=== PATIENT | female | born 1980 | race Asian ===

== ENCOUNTER 2016-02-22 14:06 | Inpatient (IN) | payer OTHER ==
[2016-02-22] MEDS ORDERED: NS 0.9% 1000 ML* 2,000 ML IV ONE (15:11)
[2016-02-22] MEDS ORDERED: Propranolol TAB* 60 MG PO ONE (15:20)
[2016-02-22] MEDS ORDERED: Propylthiouracil TAB* 50 MG PO ONE (15:24)
[2016-02-22 15:26] LABS: Hematocrit 44 % (35-47); Hemoglobin 14.2 g/dl (12.0-16.0); Mean Corpuscular HGB Conc 32 g/dl (31-36); Mean Corpuscular Hemoglobin 26 pg (27-31); Mean Corpuscular Volume 81 fL (80-97); Mean Platelet Volume 8 um3 (7.4-10.4); Red Blood Count 5.43 10^6/ul (4.0-5.4); Red Cell Distribution Width 13 % (10.5-15); White Blood Count 5.4 10^3/ul (3.5-10.8)
[2016-02-22] MEDS ORDERED: Hydrocortisone INJ* 100 MG VIAL IV ONE (15:26)
--- NOTE | 2016-02-22 15:32 | RAD ---
HISTORY: Pneumonia COMPARISONS: August 16, 2010 VIEWS:1: Single frontal portable view of the chest at 3:20 PM FINDINGS: LINES AND TUBES: None. CARDIOMEDIASTINAL SILHOUETTE: The cardiomediastinal silhouette is normal for portable technique. PLEURA: The costophrenic angles are sharp. No pleural abnormalities are noted. LUNG PARENCHYMA: There are symmetric rounded densities overlying the lower lungs bilaterally suggestive of nipple shadows ABDOMEN: The upper abdomen is clear. There is no subphrenic gas. BONES AND SOFT TISSUES: No bone or soft tissue abnormalities are noted. IMPRESSION: 1. SYMMETRIC ROUNDED DENSITIES OVERLYING THE LOWER LUNGS BILATERALLY SUGGESTIVE OF NIPPLE SHADOWS. IF THERE IS CLINICAL CONCERN FOR PULMONARY PARENCHYMAL NODULARITY, FURTHER EVALUATION CAN BE PERFORMED WITH REPEAT CHEST FILM WITH NIPPLE MARKERS. 2. OTHERWISE NO ACTIVE CARDIOPULMONARY DISEASE
[2016-02-22 15:39] LABS: Albumin 3.9 g/dL (3.2-5.2); BUN/Creatinine Ratio 30.8 (8-20); C Reactive Protein 2.17 mg/L (< 5.00); Calcium 9.8 mg/dL (8.6-10.3); EGFR African American 239.2 (>60); Globulin 3.4 g/dL (2-4); Potassium 3.9 mmol/L (3.5-5.0); Total Bilirubin 0.6 mg/dL (0.2-1.0); Total Protein 7.3 g/dL (6.4-8.9)
[2016-02-22 15:55] LABS: TSH (Thyroid Stimulating Horm) 0.06 mcIU/mL (0.34-5.60)
[2016-02-22 16:00] LABS: Free T3 21.2 pg/mL (2.5-3.9)
[2016-02-22 16:02] LABS: Free T4 5.59 ng/dL (0.61-1.12)
[2016-02-22 16:41] LABS: Urine Bilirubin Negative (Negative); Urine Glucose Negative (Negative); Urine Nitrite Negative (Negative)
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
--- NOTE | 2016-02-22 17:47 | RAD ---
Indication: Altered mental status. Confusion. Tachycardia. Comparison: None. Technique: Noncontrast CT vertex of skull through foramen magnum. Report: Brachycephaly morphology of the calvarium. Negative for fracture or suspicious osseous lesion of the calvarium or skull base. Negative for scalp hematoma. The sulci, ventricles, and basal cisterns are normal for age. Variant persistent cavum septum pellucidum and vergae. Suarez matter white matter differentiation is preserved without evidence for edema. No intra or extra axial hemorrhage, mass, or fluid collection detected. Unremarkable orbital contents. The visualized paranasal sinuses and mastoid air spaces are clear. IMPRESSION: No acute intracranial process evident.
[2016-02-22] MEDS ORDERED: Acetaminophen TAB* 325 MG PO PRN (18:23)
[2016-02-22] MEDS ORDERED: Temazepam CAP* 15 MG PO PRN (18:23)
[2016-02-22] MEDS ORDERED: NS 0.9% 1000 ML* 1,000 ML IV ONE (18:23)
[2016-02-22] MEDS: Iodine Strong (LUGOL'S)* 14 ML BTL PO SCH (22:59)
[2016-02-22] MEDS: Hydrocortisone TAB* 10 MG PO SCH (23:02)
[2016-02-22] MEDS: Propylthiouracil TAB* 50 MG PO SCH (23:04)
[2016-02-22] MEDS: Propranolol TAB* 40 MG PO SCH (23:56)
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
[2016-02-23 04:13] LABS: Benzodiazepine Urine Screen None Detected (None Detect)
[2016-02-23 05:07] LABS: Hematocrit 35 % (35-47); Hemoglobin 11.6 g/dl (12.0-16.0); Mean Corpuscular HGB Conc 33 g/dl (31-36); Mean Corpuscular Hemoglobin 27 pg (27-31); Mean Corpuscular Volume 82 fL (80-97); Mean Platelet Volume 8 um3 (7.4-10.4); Red Blood Count 4.33 10^6/ul (4.0-5.4); Red Cell Distribution Width 13 % (10.5-15); White Blood Count 5.1 10^3/ul (3.5-10.8)
[2016-02-23 05:28] LABS: BUN/Creatinine Ratio 27.5 (8-20); Blood Urea Nitrogen 11 mg/dL (6-24); CO2 Carbon Dioxide 19 mmol/L (22-32); Calcium 9.3 mg/dL (8.6-10.3); Chloride 108 mmol/L (101-111); EGFR African American 232.3 (>60); EGFR Non-African American 180.6 (>60); Glucose 107 mg/dL (70-100); Sodium 134 mmol/L (133-145)
[2016-02-23] MEDS: Propranolol TAB* 40 MG PO SCH ×3 (05:51→18:16)
[2016-02-23] MEDS: Omeprazole CAP* 20 MG PO SCH (05:52)
[2016-02-23] MEDS: Iodine Strong (LUGOL'S)* 14 ML BTL PO SCH ×3 (08:12→18:15)
[2016-02-23] MEDS: Hydrocortisone TAB* 10 MG PO SCH ×2 (10:02→14:54)
[2016-02-23] MEDS: Propylthiouracil TAB* 50 MG PO SCH ×3 (10:03→18:16)
[2016-02-23] MEDS ORDERED: LORazepam INJ* 2 MG/ML 1 ML VIAL IV PUSH PRN (14:42)
[2016-02-23] MEDS: Cholestyramine Resin* 4 GM POWDER PO SCH (14:53)
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
[2016-02-23] MEDS ORDERED: Haloperidol INJ IV/IM* 5 MG/ML AMP IV ONE (22:48)
[2016-02-23] MEDS ORDERED: LORazepam INJ* 2 MG/ML 1 ML VIAL IV ONE (22:50)
[2016-02-23] MEDS ORDERED: Haloperidol INJ IV/IM* 5 MG/ML AMP ONE (22:55)
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
[2016-02-24] MEDS: LORazepam INJ* 2 MG/ML 1 ML VIAL IV PUSH SCH ×3 (00:04→11:53)
[2016-02-24] MEDS: Hydrocortisone TAB* 10 MG PO SCH ×2 (00:04→11:53)
[2016-02-24] MEDS: Cholestyramine Resin* 4 GM POWDER PO SCH ×3 (00:04→11:52)
[2016-02-24] MEDS: Enoxaparin(*) 40 MG/0.4 ML SYR SUBCUT SCH ×2 (00:04→18:23)
[2016-02-24] MEDS: Propylthiouracil TAB* 50 MG PO SCH ×6 (00:04→23:47)
[2016-02-24] MEDS: Propranolol IV* 1 MG/ML 1 ML VIAL IV PUSH SCH ×4 (00:05→11:53)
[2016-02-24] MEDS: Omeprazole CAP* 20 MG PO SCH (06:01)
[2016-02-24] MEDS ORDERED: LORazepam INJ* 2 MG/ML 1 ML VIAL IV PUSH PRN (11:54)
[2016-02-24] MEDS ORDERED: Propranolol LA CAP* 80 MG PO ONE (12:00)
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
--- NOTE | 2016-02-24 16:35 | PN ---
Subjective Date of Service: 02/24/16 Interval History: Events from overnight reviewed. Patient refused all medications starting in the evening. Based on her previous inability to detail circumstances pertaining to her hospital stay, her diagnosis, nor risk and benefits of receiving or refusing medications a decision was made to medicate with ativan and give IV hydrocortisone and IV propranolol overnight in setting of renewed tachycardia and new pyrexia. Plan was communicated directly to overnight nurse and overnight hospitalist. Patient continued to refuse all medications and none were administered. This AM patient was noted to be increasingly tachycardic and febrile with continued manic symptoms. A meeting was had first with patient and her concerning diagnosis, treatment plan, and risks inherent to thyroid storm as well as risks associated with refusal of treatment (as outlined in Dr. Thomas's note from today). A follow up conversation was then conducted with myself, Dr. Mcnally, the patient, and her as well as myself, Dr. Mcnally, and the patient's /HCP in the absence of the patient (with her permission). At the conclusion of conversion with patient and Dr. Mcnally the patient has agreed to take propranolol and PTU. In follow up the patient's HCP indicates that when patient was at her baseline she would be unlikely to refuse the treatment being offered at this time. IF PATIENT DECLINES MEDICATIONS THE HCP/, ACTING ON HER BEHALF, WOULD LIKE TO TREAT AGAINST HER OBJECTION INCLUDING THE USE OF SEDATIVES/ANXIOLYTICS SHOULD THEY BE NECESSARY. THE PATIENT DOES NOT HAVE CAPACITY TO REFUSE MEDICATIONS NOR LEAVE HOSPITAL AGAINST MEDICAL ADVISE OUTLINED HERE AND IN PSYCHIATRY'S NOTE FROM TODAY Objective Active Medications: Acetaminophen (Tylenol Tab*) 650 mg PO Q4H PRN PRN Reason: FEVER/PAIN Last Admin: 02/22/16 23:26 Dose: 650 mg Enoxaparin Sodium (Lovenox(*)) 40 mg SUBCUT Q24H NIKITA Last Admin: 02/24/16 00:04 Dose: Not Given Lorazepam (Ativan Inj*) 1 mg IV PUSH Q6H PRN PRN Reason: ANXIETY Propranolol HCl (Inderal La [place]*) 80 mg PO BID NIKITA Propylthiouracil (Ptu Tab*) 200 mg PO QID NIKITA Last Admin: 02/24/16 14:58 Dose: 200 mg Vital Signs 02/23/16 02/23/16 02/24/16 19:45 20:00 07:43 Temperature 99.8 F 98.5 F Pulse Rate 110 116 Respiratory 16 16 16 Rate Blood Pressure 112/68 137/78 (mmHg) O2 Sat by Pulse 99 98 Oximetry 02/24/16 02/24/16 02/24/16 07:55 13:10 15:21 Temperature 98.3 F 99.3 F Pulse Rate 104 96 Respiratory 16 16 18 Rate Blood Pressure 146/79 117/86 (mmHg) O2 Sat by Pulse 100 100 Oximetry Oxygen Devices in Use Now: None Appearance: Thin, sitting up in bed, diaphoretic, NAD Eyes: No Scleral Icterus, PERRLA, - - exopthalmos Ears/Nose/Mouth/Throat: Clear Oropharnyx, Mucous Membranes Moist Neck: NL Appearance and Movements; NL JVP, Trachea Midline, No Thyroid Enlargement, Masses Respiratory: Symmetrical Chest Expansion and Respiratory Effort, Clear to Auscultation Cardiovascular: NL Sounds; No Murmurs; No JVD, - - tachycardic Abdominal: NL Sounds; No Tenderness; No Distention, No Hepatosplenomegaly Lymphatic: No Cervical Adenopathy Extremities: - - left great toe with bruising under nailbed Skin: No Rash or Ulcers Neurological: - - pressure speech, tangential, flight of ideas, refuses to partake in conversation as I am "merely mortal" and she is "imortal" Result Diagrams: 02/23/16 04:38 02/23/16 09:03 Additional Lab and Data: Lab Results 02/22/16 02/22/16 02/22/16 Range/Units 14:45 14:45 14:45 WBC 5.4 (3.5-10.8) 10^3/ul RBC 5.43 H (4.0-5.4) 10^6/ul Hgb 14.2 (12.0-16.0) g/dl Hct 44 (35-47) % MCV 81 (80-97) fL MCH 26 L (27-31) pg MCHC 32 (31-36) g/dl RDW 13 (10.5-15) % Plt Count 297 (150-450) 10^3/ul MPV 8 (7.4-10.4) um3 Neut % (Auto) 48.9 (38-83) % Lymph % (Auto) 35.3 (25-47) % [place] % (Auto) 14.9 H (1-9) % Eos % (Auto) 0.5 (0-6) % Baso % (Auto) 0.4 (0-2) % Absolute Neuts (auto) 2.7 (1.5-7.7) 10^3/ul Absolute Lymphs (auto) 1.9 (1.0-4.8) 10^3/ul Absolute Monos (auto) 0.8 (0-0.8) 10^3/ul Absolute Eos (auto) 0 (0-0.6) 10^3/ul Absolute Basos (auto) 0 (0-0.2) 10^3/ul Absolute Nucleated RBC 0.01 10^3/ul Nucleated RBC % 0.1 INR (Anticoag Therapy) 1.03 (0.89-1.11) Sodium 131 L (133-145) mmol/L Potassium 3.9 (3.5-5.0) mmol/L Chloride 106 (101-111) mmol/L Carbon Dioxide 23 (22-32) mmol/L Anion Gap 2 (2-11) mmol/L BUN 12 (6-24) mg/dL Creatinine 0.39 L (0.51-0.95) mg/dL Est GFR ( Amer) 239.2 (>60) Est GFR (Non-Af Amer) 186.0 (>60) BUN/Creatinine Ratio 30.8 H (8-20) Glucose 98 (70-100) mg/dL Lactic Acid (0.5-2.0) mmol/L Calcium 9.8 (8.6-10.3) mg/dL Magnesium 2.0 (1.9-2.7) mg/dL Total Bilirubin 0.60 (0.2-1.0) mg/dL AST 18 (13-39) U/L ALT 16 (7-52) U/L Alkaline Phosphatase 109 H (34-104) U/L Total Creatine Kinase 28 (10-223) U/L Troponin I 0.00 (<0.04) ng/mL C-Reactive Protein 2.17 (< 5.00) mg/L B-Natriuretic Peptide ( - 100) pg/mL Total Protein 7.3 (6.4-8.9) g/dL Albumin 3.9 (3.2-5.2) g/dL Globulin 3.4 (2-4) g/dL Albumin/Globulin Ratio 1.1 (1-3) TSH 0.06 L (0.34-5.60) mcIU/mL Free T4 5.59 H (0.61-1.12) ng/dL Free T3 21.20 H (2.5-3.9) pg/mL Urine Color Urine Appearance Urine pH (5-9) Ur Specific [place] (1.010-1.030) Urine Protein (Negative) Urine Ketones (Negative) Urine Blood (Negative) Urine Nitrate (Negative) Urine Bilirubin (Negative) Urine Urobilinogen (Negative) Ur Leukocyte Esterase (Negative) Urine Glucose (Negative) 02/22/16 02/22/16 02/22/16 Range/Units 14:45 14:45 16:30 WBC (3.5-10.8) 10^3/ul RBC (4.0-5.4) 10^6/ul Hgb (12.0-16.0) g/dl Hct (35-47) % MCV (80-97) fL MCH (27-31) pg MCHC (31-36) g/dl RDW (10.5-15) % Plt Count (150-450) 10^3/ul MPV (7.4-10.4) um3 Neut % (Auto) (38-83) % Lymph % (Auto) (25-47) % [place] % (Auto) (1-9) % Eos % (Auto) (0-6) % Baso % (Auto) (0-2) % Absolute Neuts (auto) (1.5-7.7) 10^3/ul Absolute Lymphs (auto) (1.0-4.8) 10^3/ul Absolute Monos (auto) (0-0.8) 10^3/ul Absolute Eos (auto) (0-0.6) 10^3/ul Absolute Basos (auto) (0-0.2) 10^3/ul Absolute Nucleated RBC 10^3/ul Nucleated RBC % INR (Anticoag Therapy) (0.89-1.11) Sodium (133-145) mmol/L Potassium (3.5-5.0) mmol/L Chloride (101-111) mmol/L Carbon Dioxide (22-32) mmol/L Anion Gap (2-11) mmol/L BUN (6-24) mg/dL Creatinine (0.51-0.95) mg/dL Est GFR ( Amer) (>60) Est GFR (Non-Af Amer) (>60) BUN/Creatinine Ratio (8-20) Glucose (70-100) mg/dL Lactic Acid 1.2 (0.5-2.0) mmol/L Calcium (8.6-10.3) mg/dL Magnesium (1.9-2.7) mg/dL Total Bilirubin (0.2-1.0) mg/dL AST (13-39) U/L ALT (7-52) U/L Alkaline Phosphatase (34-104) U/L Total Creatine Kinase (10-223) U/L Troponin I (<0.04) ng/mL C-Reactive Protein (< 5.00) mg/L B-Natriuretic Peptide 13 ( - 100) pg/mL Total Protein (6.4-8.9) g/dL Albumin (3.2-5.2) g/dL Globulin (2-4) g/dL Albumin/Globulin Ratio (1-3) TSH (0.34-5.60) mcIU/mL Free T4 (0.61-1.12) ng/dL Free T3 (2.5-3.9) pg/mL Urine Color Straw Urine Appearance Clear Urine pH 5.0 (5-9) Ur Specific [place] 1.006 L (1.010-1.030) Urine Protein Negative (Negative) Urine Ketones 1+ H (Negative) Urine Blood Negative (Negative) Urine Nitrate Negative (Negative) Urine Bilirubin Negative (Negative) Urine Urobilinogen Negative (Negative) Ur Leukocyte Esterase Negative (Negative) Urine Glucose Negative (Negative) Assess/Plan/Problems-Billing Assessment: 35 yo F p/w lakshmi in setting of thyroid storm - Patient Problems (1) Thyroid storm Comment: Appreciate extensive assistance from Dr. Mcnally and Dr. Thomas today Medication regimen titrated to provide limited medications which patient is likely to benefit from and hopefully less likely to decline c/w PTU and propranolol SR with goal HR 60-80 bpm discontinue steroids, iodine drops, and cholesytramine Patient lacks capacity and cannot refuse medications HCP/ agrees with treating over objection if patient declines medication (2) Lakshmi Comment: In setting of thyroid storm +SI, must remain on 1:1 Patient CANNOT leave AMA at this time. D Ativan PRN for anxiety or agitation Seroquel can be added as needed as outlined in psychiatry note from today (3) DVT prophylaxis Comment: lovenox
--- NOTE | 2016-02-24 22:21 | CONS ---
CC: Dr. Romero; Dr. 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 HISTORY: Tana Mancilla is a 35-year-old [place] female. She has a history of Graves disease wit h hypothyroidism. She was diagnosed and treated by Dr. Blanca in [place], [place], where she was t reated with METHIMAZOLE first and developed a rash and that was converted in to light PTU. She stop ped taking the PTU in October 2015. Her presentation is documented in Dr. Tracey Cummings's admitt ing history and physical; however, she had become very hypothyroid with change in her mental state. According to the patient, she is felt hot. She has had some weight loss. She is not sleeping. She has had some increased sweating of her skin and tremor. She acknowledges that these are symptoms o f hypothyroidism. She has an abnormal mental state. This is being evaluated separately by Dr. Thomas and his consulta tion is part of the medical record. Her , Dorian Pinto, is a professor in law school at [employer] and is present during the evaluation. PREVIOUS MEDICAL HISTORY: PTSD and hypothyroidism. She has had a breast lesion, resected by Dr. Me miller. She has a psychiatric history. ALLERGIES: METHIMAZOLE. FAMILY HISTORY: There is no family history of thyroid disease or autoimmune disease or other endocr ine disorders. REVIEW OF SYSTEMS: Problematic as she was very distractible and difficult to focus on the questions at times. PHYSICAL EXAM: Vital Signs: Temperature 98.5, T-max 99.2, blood pressure 137/78, oxygen saturation on room air 98%, respirations 16, and pulse rate 116. General: She has no cyanosis, anemia, jaundi ce, clubbing, or lymphadenopathy. Thyroid System: She has a fine tremor. Her hands are warm and d amp. She looks clinically markedly hypothyroid. She has a 35-g goiter, which is soft in consistenc y with no nodules and soft bruit. She has mild proptosis, lid lag, and lid retraction. No disconju gate eye movements. Some mild conjunctival injection. Endocrine System: She has no obesity. No si gns of [place] disease. She is not anemic. She has no acanthosis nigricans. No signs of any pitui tary disorder. She has no other signs of autoimmune disease. Cardiovascular System: She has a hyp odynamic circulation. She has tachycardia. Venous pressure was not elevated. [place] beat was permane nt, but not displaced. Heart sounds, she has a soft systolic flow murmur. She has no added sounds. No pedal edema. Pedal pulses were present. Respiratory System: Her chest was clear. Abdomen: N o distention, masses, tenderness, or organomegaly. Nervous System: She has conjugate eye movements. Cranial nerves II through XII intact. Speech was normal. Arms and legs were not formally tested for power or tone and coordination is normal. Mental State: She has fluent speech. She is oriented though she has paranoid ideation, grandiosity of ideas, cheondoism and other delusions, and she has difficulty focusing on conversation. She is m arkedly agitated and anxious. INVESTIGATIONS: At presentation, CBC: White count 5.4, hemoglobin 14.2, hematocrit 44, platelets 2 97, her MCV was 81, and differential was normal. Chemistry at presentation: Sodium 131, potassium 3 .9, chloride 106, bicarbonate 23, anion gap 2, BUN 12, creatinine 0.39, glucose 98, lactic acid 1.2, calcium 9.8, and magnesium 2. Alkaline phosphatase 109, AST 18, and ALT 16. C-reactive protein 2. 17. Troponin I of 0.00. TSH of 0.06, free T4 of 5.59, and free T3 of 21.2. Urinalysis, 1+ ketones. Imaging: Chest x-ray, no active cardiopulmonary disease, shadow suggestive of nipple densities. CT scan of her brain, no acute intracranial processes. A 12-lead EKG, which I have inspected directly, shows sinus tachycardia, rate 108, MT interval 160, QTc 433, QRS axis 81, and she has repolarization changes in V2 and V3. ASSESSMENT AND PLAN: 1. Graves disease with hyperthyroidism and thyroid storm: She presents with hyperpyrexia, mild tac hycardia. She does not have high-output cardiac failure on clinical examination. She has a history of hypothyroidism and stopped taking her medication in October. She clearly has not gone for a s pontaneous remission. She requires hospital treatments in view of the risk of thyroid storm, which i s potentially a diagnosis that carries a poor prognosis. She will receive PTU 200 mg 4 times a day and propranolol LA 80 mg twice daily. I spoke at length with the patient and her and at the time I saw her, she was prepared to take this medication. I discussed with her the pathophysiology of Graves disease in particular, the nature of the immune p roblem, which is the increase in thyroid stimulating immunoglobulins. I have described to her that this is usually a relapsing and remitting condition; however, when there is more severe disease, it is unlikely to go into a spontaneous remission and she is not interested in radioiodine therapy, but would accept surgical management. This is something which I will discuss with her as an outpatient when she is out of the acute phase. 2. I will screen her for other endocrine and autoimmune diseases in case they are affecting her cur rent presentation. This will include a B12 level and cortisol level, which we can check on her [facility] room blood. 3. Psychotic/hypomanic status: Clearly talking to her , she is qualitatively different in h er mental state than usual; however, he acknowledges that even at baseline, she has some delusional quality to her thinking. I think that the hypothyroidism has triggered this hypomanic episode and t hat the best prospects would be to bring the thyroid hormone back down to the euthyroid state, which we can do as rapidly with PTU. I have stopped her hydrocortisone because corticosteroids can also cause shamika and I think that we want to prevent that. I do not think that they would make such a si gnificant difference in terms of her thyroid storm disadvantages in terms of her mental state outwei gh the advantages. I spoke both to the patient and her at length and they agree with this management plan. I s poke at length with Dr. Romero. We will try to keep her on a medical floor if possible; however, if she declines treatment, her is prepared for her to be treated against her own will owing to the fact that she could have severe medical complications or even , if she is not treated. [id number]/[facility] #: [id number]
[2016-02-24] MEDS: Propranolol LA CAP* 80 MG PO SCH (23:46)
[2016-02-25] MEDS: Propylthiouracil TAB* 50 MG PO SCH ×4 (07:53→19:58)
[2016-02-25] MEDS: Propranolol LA CAP* 80 MG PO SCH ×2 (07:55→19:59)
--- NOTE | 2016-02-25 08:29 | PN ---
Subjective - Subjective Reason for Note: Progress Note History: I spoke with the patient and her . There was a lot of extraneous ideation with pressure of speech and intrusive paranoid thought. However, she was able to let me know that she feels hot, has a fine tremor, some awareness of rapid pulse rate. She took her medication and she is willing to continue Active Problems: Active Problems DVT prophylaxis (Acute) [id number] lovenox Graves disease (Acute) E05.00 Lakshmi (Acute) F30.9 In setting of thyroid storm +SI, must remain on 1:1 Patient CANNOT leave AMA at this time. D Ativan PRN for anxiety or agitation Seroquel can be added as needed as outlined in psychiatry note from today Thyroid storm (Acute) E05.91 Appreciate extensive assistance from Dr. Mcnally and Dr. Thomas today Medication regimen titrated to provide limited medications which patient is likely to benefit from and hopefully less likely to decline c/w PTU and propranolol SR with goal HR 60-80 bpm discontinue steroids, iodine drops, and cholesytramine Patient lacks capacity and cannot refuse medications HCP/ agrees with treating over objection if patient declines medication Current Medications: Current Medications Acetaminophen (Tylenol Tab*) 650 mg PO Q4H PRN PRN Reason: FEVER/PAIN Last Admin: 02/22/16 23:26 Dose: 650 mg Enoxaparin Sodium (Lovenox(*)) 40 mg SUBCUT Q24H [facility] Last Admin: 02/24/16 18:23 Dose: Not Given Lorazepam (Ativan Inj*) 1 mg IV PUSH Q6H PRN PRN Reason: ANXIETY Propranolol HCl (Inderal La Cap*) 80 mg PO BID [facility] Last Admin: 02/25/16 07:55 Dose: 80 mg Propylthiouracil (Ptu Tab*) 200 mg PO QID [facility] Last Admin: 02/25/16 07:53 Dose: 200 mg Home Medications: Home Medications Medication Instructions Recorded Confirmed Type Naproxen TAB* [Naprosyn TAB*] 500 mg PO BID PRN 02/22/16 02/22/16 History Allergies: Allergies Allergy/AdvReac Type Severity Reaction Status Date / Time Methimazole Allergy Hives Verified 02/22/16 14:23 Objective - Vital Signs Vital Signs: Vital Signs 02/24/16 02/24/16 02/24/16 13:10 15:21 20:00 Temperature 98.3 F 99.3 F Pulse Rate 104 96 Respiratory 16 18 18 Rate Blood Pressure 146/79 117/86 (mmHg) O2 Sat by Pulse 100 100 Oximetry 02/24/16 02/24/16 02/25/16 20:09 23:33 05:53 Temperature 98.4 F 98.4 F 97.4 F Pulse Rate 80 90 69 Respiratory 18 16 Rate Blood Pressure 127/70 145/70 106/67 (mmHg) O2 Sat by Pulse 99 99 98 Oximetry - Intake and Output Intake and Output: Intake & Output 02/22/16 02/23/16 02/24/16 02/25/16 11:59 11:59 11:59 11:59 Intake Total 2490 2340 1000 Output Total 1800 0 Balance 2490 540 1000 Weight 109 lb 4.8 oz Intake: IV Fluids 990 NS (0.9%) 990 Oral 1500 2340 1000 Output: Urine 1800 0 Other: Estimated Void Small Small Large Date of Last Bowel 02/24/16 Movement # Bowel Movements 1 1 0 Estimated Stool Amount Small Medium # Voids 1 1 1 ADLs: Meal Record Start: 02/22/16 19: 39 Freq: DAILY@0900,1400,1800 Status: Active Document 02/23/16 09:00 [id number] (Rec: 02/23/16 09:19 [id number] TELE-M10) Document 02/23/16 13:25 [id number] (Rec: 02/23/16 13:26 [id number] TELE-M10) Document 02/23/16 18:00 [id number] (Rec: 02/23/16 18:33 [id number] TELE-C01) Document 02/24/16 08:33 [id number] (Rec: 02/24/16 08:34 [id number] TELE-M10) Document 02/24/16 13:10 [id number] (Rec: 02/24/16 13:12 [id number] TELE-M10) Document 02/24/16 15:35 [id number] (Rec: 02/24/16 15:36 [id number] TELE-M10) Document 02/24/16 18:00 [id number] (Rec: 02/24/16 20:00 [id number] TELE-M10) Intake and Output Start: 02/22/16 19: 39 Freq: DAILY@0600,1400,2200 Status: Active Document 02/22/16 21:26 [id number] (Rec: 02/22/16 21:28 [id number] TELE-M10) Document 02/23/16 05:18 [id number] (Rec: 02/23/16 05:19 [id number] TELE-M10) Document 02/23/16 06:29 [id number] (Rec: 02/23/16 06:29 [id number] TELE-M10) Document 02/23/16 10:32 [id number] (Rec: 02/23/16 10:32 [id number] TELE-C10) Document 02/23/16 14:00 [id number] (Rec: 02/23/16 14:10 [id number] TELE-M10) Document 02/23/16 22:00 [id number] (Rec: 02/23/16 22:18 [id number] TELE-C01) Document 02/24/16 06:00 [id number] (Rec: 02/24/16 07:29 [id number] TELE-C15) Document 02/24/16 13:10 [id number] (Rec: 02/24/16 13:12 [id number] TELE-M10) Document 02/24/16 21:55 [id number] (Rec: 02/24/16 21:55 [id number] TELE-C32) Assessment - Problem List Assessment: Patient Problems DVT prophylaxis (Acute) Graves disease (Acute) Lakshmi (Acute) Thyroid storm (Acute) Plan: I counseled Ms Mancilla about the course of her hyperthyroidism and the importance of the medication she is receiving. We will have new thyroid function results. I explained the necessity for monitoring her closely. I also suggested I speak with her former workers compensation administrator in [place], [place] Dr. Blanca. She agrees to continue taking the PTU and propranolol.
--- NOTE | 2016-02-25 15:43 | PN ---
Progress Note - Progress Note Note: Follow up psychiatric assessment: Today I met with Tana Charo with her present. She was hyperverbal, hyper- roman catholic and hyperthymic. She spoke of seeing her father outside the window of her 4th floor hospital room and also his presence in the body of her . She voiced agreement with taking PTU and other meds to treat her thyroid storm. In her currently psychotic state, she lacks capacity to refuse life-saving treatment as she lacks reasoning capacity to make decisions, and does not have adequate appreciation of potential consequences of her decisions. Since she is agreeing now to potentially life-saving care, the capacity issue is latent. Please reconsult if she refuses care jeopardizing her health. Will see again tomorrow to consider addition of Seroquel if necessary, as per Dr Thomas's assessment yesterday.
[2016-02-25] MEDS ORDERED: QUEtiapine TAB* 25 MG PO PRN (16:06)
--- NOTE | 2016-02-25 18:03 | PN ---
Subjective Date of Service: 02/25/16 Interval History: Seen and examined this AM with present Pt has not missed any doses of medication since conversations yesterday with myself, Dr. Mcnally, and Dr. Thomas Pt noted to have called 911 multiple times since admission (last was this AM) Seen again in conjunction nurse manager consumer insights, floor press operator - phone was given to by patient Objective Active Medications: Acetaminophen (Tylenol Tab*) 650 mg PO Q4H PRN PRN Reason: FEVER/PAIN Last Admin: 02/22/16 23:26 Dose: 650 mg Enoxaparin Sodium (Lovenox(*)) 40 mg SUBCUT Q24H [facility] Last Admin: 02/24/16 18:23 Dose: Not Given Lorazepam (Ativan Inj*) 1 mg IV PUSH Q6H PRN PRN Reason: ANXIETY Propranolol HCl (Inderal La Cap*) 80 mg PO BID [facility] Last Admin: 02/25/16 07:55 Dose: 80 mg Propylthiouracil (Ptu Tab*) 200 mg PO QID [facility] Last Admin: 02/25/16 16:23 Dose: 200 mg Quetiapine Fumarate (Seroquel Tab*) 50 mg PO Q4H PRN PRN Reason: AGITATION/ANXIETY Vital Signs 02/24/16 02/24/16 02/24/16 20:00 20:09 23:33 Temperature 98.4 F 98.4 F Pulse Rate 80 90 Respiratory 18 18 Rate Blood Pressure 127/70 145/70 (mmHg) O2 Sat by Pulse 99 99 Oximetry 02/25/16 02/25/16 02/25/16 05:53 08:00 16:44 Temperature 97.4 F 98.9 F Pulse Rate 69 73 Respiratory 16 18 16 Rate Blood Pressure 106/67 108/74 (mmHg) O2 Sat by Pulse 98 100 Oximetry Oxygen Devices in Use Now: None Appearance: pressured speech, tangential, NAD Eyes: No Scleral Icterus, PERRLA Neck: NL Appearance and Movements; NL JVP Respiratory: Symmetrical Chest Expansion and Respiratory Effort Cardiovascular: RRR Abdominal: NL Sounds; No Tenderness; No Distention Lymphatic: No Cervical Adenopathy Extremities: No Edema Result Diagrams: 02/23/16 04:38 02/23/16 09:03 Additional Lab and Data: Lab Results 02/22/16 02/22/16 02/22/16 Range/Units 14:45 14:45 14:45 WBC 5.4 (3.5-10.8) 10^3/ul RBC 5.43 H (4.0-5.4) 10^6/ul Hgb 14.2 (12.0-16.0) g/dl Hct 44 (35-47) % MCV 81 (80-97) fL MCH 26 L (27-31) pg MCHC 32 (31-36) g/dl RDW 13 (10.5-15) % Plt Count 297 (150-450) 10^3/ul MPV 8 (7.4-10.4) um3 Neut % (Auto) 48.9 (38-83) % Lymph % (Auto) 35.3 (25-47) % [place] % (Auto) 14.9 H (1-9) % Eos % (Auto) 0.5 (0-6) % Baso % (Auto) 0.4 (0-2) % Absolute Neuts (auto) 2.7 (1.5-7.7) 10^3/ul Absolute Lymphs (auto) 1.9 (1.0-4.8) 10^3/ul Absolute Monos (auto) 0.8 (0-0.8) 10^3/ul Absolute Eos (auto) 0 (0-0.6) 10^3/ul Absolute Basos (auto) 0 (0-0.2) 10^3/ul Absolute Nucleated RBC 0.01 10^3/ul Nucleated RBC % 0.1 INR (Anticoag Therapy) 1.03 (0.89-1.11) Sodium 131 L (133-145) mmol/L Potassium 3.9 (3.5-5.0) mmol/L Chloride 106 (101-111) mmol/L Carbon Dioxide 23 (22-32) mmol/L Anion Gap 2 (2-11) mmol/L BUN 12 (6-24) mg/dL Creatinine 0.39 L (0.51-0.95) mg/dL Est GFR ( Amer) 239.2 (>60) Est GFR (Non-Af Amer) 186.0 (>60) BUN/Creatinine Ratio 30.8 H (8-20) Glucose 98 (70-100) mg/dL Lactic Acid (0.5-2.0) mmol/L Calcium 9.8 (8.6-10.3) mg/dL Magnesium 2.0 (1.9-2.7) mg/dL Total Bilirubin 0.60 (0.2-1.0) mg/dL AST 18 (13-39) U/L ALT 16 (7-52) U/L Alkaline Phosphatase 109 H (34-104) U/L Total Creatine Kinase 28 (10-223) U/L Troponin I 0.00 (<0.04) ng/mL C-Reactive Protein 2.17 (< 5.00) mg/L B-Natriuretic Peptide ( - 100) pg/mL Total Protein 7.3 (6.4-8.9) g/dL Albumin 3.9 (3.2-5.2) g/dL Globulin 3.4 (2-4) g/dL Albumin/Globulin Ratio 1.1 (1-3) TSH 0.06 L (0.34-5.60) mcIU/mL Free T4 5.59 H (0.61-1.12) ng/dL Free T3 21.20 H (2.5-3.9) pg/mL Urine Color Urine Appearance Urine pH (5-9) Ur Specific [place] (1.010-1.030) Urine Protein (Negative) Urine Ketones (Negative) Urine Blood (Negative) Urine Nitrate (Negative) Urine Bilirubin (Negative) Urine Urobilinogen (Negative) Ur Leukocyte Esterase (Negative) Urine Glucose (Negative) 02/22/16 02/22/16 02/22/16 Range/Units 14:45 14:45 16:30 WBC (3.5-10.8) 10^3/ul RBC (4.0-5.4) 10^6/ul Hgb (12.0-16.0) g/dl Hct (35-47) % MCV (80-97) fL MCH (27-31) pg MCHC (31-36) g/dl RDW (10.5-15) % Plt Count (150-450) 10^3/ul MPV (7.4-10.4) um3 Neut % (Auto) (38-83) % Lymph % (Auto) (25-47) % [place] % (Auto) (1-9) % Eos % (Auto) (0-6) % Baso % (Auto) (0-2) % Absolute Neuts (auto) (1.5-7.7) 10^3/ul Absolute Lymphs (auto) (1.0-4.8) 10^3/ul Absolute Monos (auto) (0-0.8) 10^3/ul Absolute Eos (auto) (0-0.6) 10^3/ul Absolute Basos (auto) (0-0.2) 10^3/ul Absolute Nucleated RBC 10^3/ul Nucleated RBC % INR (Anticoag Therapy) (0.89-1.11) Sodium (133-145) mmol/L Potassium (3.5-5.0) mmol/L Chloride (101-111) mmol/L Carbon Dioxide (22-32) mmol/L Anion Gap (2-11) mmol/L BUN (6-24) mg/dL Creatinine (0.51-0.95) mg/dL Est GFR ( Amer) (>60) Est GFR (Non-Af Amer) (>60) BUN/Creatinine Ratio (8-20) Glucose (70-100) mg/dL Lactic Acid 1.2 (0.5-2.0) mmol/L Calcium (8.6-10.3) mg/dL Magnesium (1.9-2.7) mg/dL Total Bilirubin (0.2-1.0) mg/dL AST (13-39) U/L ALT (7-52) U/L Alkaline Phosphatase (34-104) U/L Total Creatine Kinase (10-223) U/L Troponin I (<0.04) ng/mL C-Reactive Protein (< 5.00) mg/L B-Natriuretic Peptide 13 ( - 100) pg/mL Total Protein (6.4-8.9) g/dL Albumin (3.2-5.2) g/dL Globulin (2-4) g/dL Albumin/Globulin Ratio (1-3) TSH (0.34-5.60) mcIU/mL Free T4 (0.61-1.12) ng/dL Free T3 (2.5-3.9) pg/mL Urine Color Straw Urine Appearance Clear Urine pH 5.0 (5-9) Ur Specific [place] 1.006 L (1.010-1.030) Urine Protein Negative (Negative) Urine Ketones 1+ H (Negative) Urine Blood Negative (Negative) Urine Nitrate Negative (Negative) Urine Bilirubin Negative (Negative) Urine Urobilinogen Negative (Negative) Ur Leukocyte Esterase Negative (Negative) Urine Glucose Negative (Negative) Assess/Plan/Problems-Billing Assessment: 35 yo F p/w lakshmi in setting of thyroid storm - Patient Problems (1) Thyroid storm Comment: Appreciate extensive assistance from Dr. Mcnally and psychiatry Medication regimen titrated to provide limited medications which patient is likely to benefit from and hopefully less likely to decline c/w PTU and propranolol SR with goal HR 60-80 bpm discontinue steroids, iodine drops, and cholesytramine Patient lacks capacity and cannot refuse medications HCP/ agrees with treating over objection if patient declines medication (2) Lakshmi Comment: In setting of thyroid storm +SI, must remain on 1:1 Patient CANNOT leave AMA at this time. Ativan PRN for anxiety or agitation Seroquel PRN for anxiety or agitation Seroquel can be added as needed as outlined in psychiatry note from today (3) DVT prophylaxis Comment: lovenox
[2016-02-25] MEDS: Enoxaparin(*) 40 MG/0.4 ML SYR SUBCUT SCH (19:23)
[2016-02-26 05:47] LABS: BUN/Creatinine Ratio 28.3 (8-20); Calcium 9.7 mg/dL (8.6-10.3); EGFR African American 197.7 (>60); EGFR Non-African American 153.7 (>60); Potassium 3.9 mmol/L (3.5-5.0)
[2016-02-26 07:02] LABS: TSH (Thyroid Stimulating Horm) 0.22 mcIU/mL (0.34-5.60)
[2016-02-26 07:05] LABS: Free T3 6.3 pg/mL (2.5-3.9)
[2016-02-26 07:12] LABS: Free T4 4.48 ng/dL (0.61-1.12)
--- NOTE | 2016-02-26 08:55 | PN ---
Subjective - Subjective Reason for Note: Consultation Note History: She continues to have paranoid delusions, intrusive thoughts and pressure of speech. But this is significantly improved. She is no feeling cold. She had some constipation yesterday. She denies palpitations/tachycardia. The antithyroid medication/propranolol is causing no side effects and she accepts this medication. I tried calling her former compliance testing analyst yesterday, but couldn't reach her. Active Problems: Active Problems DVT prophylaxis (Acute) [id number] lovenox Graves disease (Acute) E05.00 Lakshmi (Acute) F30.9 In setting of thyroid storm +SI, must remain on 1:1 Patient CANNOT leave AMA at this time. Ativan PRN for anxiety or agitation Seroquel PRN for anxiety or agitation Seroquel can be added as needed as outlined in psychiatry note from today Thyroid storm (Acute) E05.91 Appreciate extensive assistance from Dr. Mcnally and psychiatry Medication regimen titrated to provide limited medications which patient is likely to benefit from and hopefully less likely to decline c/w PTU and propranolol SR with goal HR 60- 80 bpm discontinue steroids, iodine drops, and cholesytramine Patient lacks capacity and cannot refuse medications HCP/ agrees with treating over objection if patient declines medication Current Medications: Current Medications Acetaminophen (Tylenol Tab*) 650 mg PO Q4H PRN PRN Reason: FEVER/PAIN Last Admin: 02/22/16 23:26 Dose: 650 mg Enoxaparin Sodium (Lovenox(*)) 40 mg SUBCUT Q24H [facility] Last Admin: 02/25/16 19:23 Dose: Not Given Lorazepam (Ativan Inj*) 1 mg IV PUSH Q6H PRN PRN Reason: ANXIETY Propranolol HCl (Inderal La Cap*) 80 mg PO BID [facility] Last Admin: 02/25/16 19:59 Dose: 80 mg Propylthiouracil (Ptu Tab*) 200 mg PO QID [facility] Last Admin: 02/25/16 19:58 Dose: 200 mg Quetiapine Fumarate (Seroquel Tab*) 50 mg PO Q4H PRN PRN Reason: AGITATION/ANXIETY Home Medications: Home Medications Medication Instructions Recorded Confirmed Type Naproxen TAB* [Naprosyn TAB*] 500 mg PO BID PRN 02/22/16 02/22/16 History Allergies: Allergies Allergy/AdvReac Type Severity Reaction Status Date / Time Methimazole Allergy Hives Verified 02/22/16 14:23 Objective - Vital Signs Vital Signs: Vital Signs 02/25/16 02/25/16 02/25/16 16:44 20:00 22:31 Temperature 98.9 F 98.1 F Pulse Rate 73 80 Respiratory 16 20 16 Rate Blood Pressure 108/74 128/61 (mmHg) O2 Sat by Pulse 100 100 Oximetry 02/25/16 02/26/16 23:08 03:06 Temperature 97.5 F 98.2 F Pulse Rate 85 72 Respiratory 16 16 Rate Blood Pressure 126/65 104/55 (mmHg) O2 Sat by Pulse 100 98 Oximetry - Intake and Output Intake and Output: Intake & Output 02/23/16 02/24/16 02/25/16 02/26/16 11:59 11:59 11:59 11:59 Intake Total 2490 2340 1000 1240 Output Total 1800 0 Balance 2490 540 1000 1240 Weight 109 lb 4.8 oz Intake: IV Fluids 990 NS (0.9%) 990 Oral 1500 2340 1000 1240 Output: Urine 1800 0 Other: Estimated Void Small Small Large Medium Date of Last Bowel 02/24/16 Movement # Bowel Movements 1 1 0 0 Estimated Stool Amount Small Medium Medium # Voids 1 1 1 3 ADLs: Meal Record Start: 02/22/16 19: 39 Freq: DAILY@0900,1400,1800 Status: Active Document 02/23/16 09:00 [id number] (Rec: 02/23/16 09:19 [id number] TELE-M10) Document 02/23/16 13:25 [id number] (Rec: 02/23/16 13:26 [id number] TELE-M10) Document 02/23/16 18:00 [id number] (Rec: 02/23/16 18:33 [id number] TELE-C01) Document 02/24/16 08:33 [id number] (Rec: 02/24/16 08:34 [id number] TELE-M10) Document 02/24/16 13:10 [id number] (Rec: 02/24/16 13:12 [id number] TELE-M10) Document 02/24/16 15:35 [id number] (Rec: 02/24/16 15:36 [id number] TELE-M10) Document 02/24/16 18:00 [id number] (Rec: 02/24/16 20:00 [id number] TELE-M10) Document 02/25/16 09:00 [id number] (Rec: 02/25/16 09:12 [id number] TELE-M10) Document 02/25/16 12:49 [id number] (Rec: 02/25/16 12:49 [id number] TELE-M10) Document 02/25/16 18:00 [id number] (Rec: 02/25/16 22:43 [id number] TELE-C01) Intake and Output Start: 02/22/16 19: 39 Freq: DAILY@0600,1400,2200 Status: Active Document 02/22/16 21:26 [id number] (Rec: 02/22/16 21:28 [id number] TELE-M10) Document 02/23/16 05:18 [id number] (Rec: 02/23/16 05:19 [id number] TELE-M10) Document 02/23/16 06:29 [id number] (Rec: 02/23/16 06:29 [id number] TELE-M10) Document 02/23/16 10:32 [id number] (Rec: 02/23/16 10:32 [id number] TELE-C10) Document 02/23/16 14:00 [id number] (Rec: 02/23/16 14:10 [id number] TELE-M10) Document 02/23/16 22:00 [id number] (Rec: 02/23/16 22:18 [id number] TELE-C01) Document 02/24/16 06:00 [id number] (Rec: 02/24/16 07:29 [id number] TELE-C15) Document 02/24/16 13:10 [id number] (Rec: 02/24/16 13:12 [id number] TELE-M10) Document 02/24/16 21:55 [id number] (Rec: 02/24/16 21:55 [id number] TELE-C32) Document 02/25/16 13:53 [id number] (Rec: 02/25/16 13:53 [id number] TELE-M10) Document 02/26/16 05:43 [id number] (Rec: 02/26/16 05:46 [id number] TELE-C35) - Physical Exam General Physical Exam Comment: Mental state: Hypomanic, pressure of speech, paranoid ideation, delusional systems and grandiosisty General: No Cyanosis, No Anemia, No Jaundice, No Clubbing -: Yes Tremor - fine - improved, Yes Goiter, No Thyroid Nodule, No Hoarseness, No Cervical adenopathy, Yes Proptosis - very mild, Yes Lid Lag, No Periorbital Edema, No Dysconjugate Eye Movement Lungs and Chest: Yes: Chest Expansion Full, Chest Expansion Symetrica, Percussion Note Resonant, Vessicular Breath Sounds. No: Crackles, Wheezes Heart Rate and Rhythm: Regular JVP: Not Elevated Additional Cardiovascular: Yes: Normal Heart Sounds. No: Heart Murmur, Pedal Edema Results - Results Lab Results: Laboratory Results - last 24 hr 02/26/16 04:58 Sodium 134 Potassium 3.9 Chloride 105 Carbon Dioxide 22 Anion Gap 7 BUN 13 Creatinine 0.46 L Est GFR ( Amer) 197.7 Est GFR (Non-Af Amer) 153.7 BUN/Creatinine Ratio 28.3 H Glucose 103 H Calcium 9.7 TSH 0.22 L Free T4 4.48 H Free T3 6.30 H Assessment - Problem List Assessment: Patient Problems DVT prophylaxis (Acute) Graves disease (Acute) Lakshmi (Acute) Thyroid storm (Acute) Plan: Thyroid storm (Acute) Her TFTs have significantly improved. She remains hyperthyroid. Her cardiovascular system is stabilizing Graves disease (Acute) I think she requires definitive therapy. Surgery is the best option and I will discuss this to get consensus from her former compliance testing analyst who she trusts. We will delay this until both her thyroid is under control and she is no longer manic. Lakshmi (Acute) This is slightly improved, but she continues to have florid manifestations with paranoia, delusions and grandiosity DVT prophylaxis (Acute) I spoke with the patient, her uncle and her at length. She agrees to another 2 days of hospital treatment - this is necessary. I want to avoid the mental health unit for the moment if at all possible.
[2016-02-26] MEDS: Propranolol LA CAP* 80 MG PO SCH ×2 (09:27→20:51)
[2016-02-26] MEDS: Propylthiouracil TAB* 50 MG PO SCH ×4 (09:27→20:51)
--- NOTE | 2016-02-26 14:24 | PN ---
Progress Note - Progress Note Note: I met with Tana and her today, discussed her case with her nurse Lu. All say she is stable and in no need of acute intervention from psychiatry. She spoke of her food production supervisor coming to visit, going to [facility] but without SI, remains manic and delusional. She has not taken any Seroquel yet. She also spoke of the top privacy attorney coming to the hospital today to take her case. She was receptive to my suggestion that consultation with an environmental attorney might help her better understand her needs and her options. I am unsure if there is actually an environmental attorney coming to meet with her. Will check on this pleasantly manic woman again tomorrow.
--- NOTE | 2016-02-26 14:49 | PN ---
Subjective Date of Service: 02/26/16 Interval History: Seen and examined this AM She is reporting "excruciating pain" in her left toe but does not want any analgesia because it is against her latter-day Reports constipation Reports episode of palpitations this AM with "heart beating hard" Seems slightly improved today. She indicates frustration because her "thyroid is making it difficult to articulate" her thoughts to me. However, still quite paranoid indicating nurses have been racists and abusing her and grandiose indicating she is having a direct conversation with god. Objective Active Medications: Acetaminophen (Tylenol Tab*) 650 mg PO Q4H PRN PRN Reason: FEVER/PAIN Last Admin: 02/22/16 23:26 Dose: 650 mg Enoxaparin Sodium (Lovenox(*)) 40 mg SUBCUT Q24H [facility] Last Admin: 02/25/16 19:23 Dose: Not Given Lorazepam (Ativan Inj*) 1 mg IV PUSH Q6H PRN PRN Reason: ANXIETY Propranolol HCl (Inderal La Cap*) 80 mg PO BID [facility] Last Admin: 02/26/16 09:27 Dose: 80 mg Propylthiouracil (Ptu Tab*) 200 mg PO QID [facility] Last Admin: 02/26/16 13:38 Dose: 200 mg Quetiapine Fumarate (Seroquel Tab*) 50 mg PO Q4H PRN PRN Reason: AGITATION/ANXIETY Vital Signs 02/25/16 02/25/16 02/25/16 16:44 20:00 22:31 Temperature 98.9 F 98.1 F Pulse Rate 73 80 Respiratory 16 20 16 Rate Blood Pressure 108/74 128/61 (mmHg) O2 Sat by Pulse 100 100 Oximetry 02/25/16 02/26/16 02/26/16 23:08 03:06 07:53 Temperature 97.5 F 98.2 F 99.3 F Pulse Rate 85 72 78 Respiratory 16 16 16 Rate Blood Pressure 126/65 104/55 109/48 (mmHg) O2 Sat by Pulse 100 98 99 Oximetry 02/26/16 02/26/16 08:00 11:45 Temperature 99.5 F Pulse Rate 85 Respiratory 18 16 Rate Blood Pressure 122/74 (mmHg) O2 Sat by Pulse 97 Oximetry Oxygen Devices in Use Now: None Appearance: sitting in chair, well kempt, NAD Eyes: No Scleral Icterus, PERRLA Ears/Nose/Mouth/Throat: NL Teeth, Lips, Gums, Clear Oropharnyx, Mucous Membranes Moist Neck: NL Appearance and Movements; NL JVP, Trachea Midline, No Thyroid Enlargement, Masses Respiratory: Symmetrical Chest Expansion and Respiratory Effort, Clear to Auscultation Cardiovascular: NL Sounds; No Murmurs; No JVD, RRR Abdominal: NL Sounds; No Tenderness; No Distention, No Hepatosplenomegaly Lymphatic: No Cervical Adenopathy Extremities: No Edema, No Clubbing, Cyanosis Skin: - - left great toenail as fallen off with small healing laceration underneath Neurological: Alert and Oriented x 3, - - pressured speech, tangential, paranoid Result Diagrams: 02/23/16 04:38 02/26/16 04:58 Additional Lab and Data: Lab Results 02/22/16 02/22/16 02/22/16 Range/Units 14:45 14:45 14:45 WBC 5.4 (3.5-10.8) 10^3/ul RBC 5.43 H (4.0-5.4) 10^6/ul Hgb 14.2 (12.0-16.0) g/dl Hct 44 (35-47) % MCV 81 (80-97) fL MCH 26 L (27-31) pg MCHC 32 (31-36) g/dl RDW 13 (10.5-15) % Plt Count 297 (150-450) 10^3/ul MPV 8 (7.4-10.4) um3 Neut % (Auto) 48.9 (38-83) % Lymph % (Auto) 35.3 (25-47) % [place] % (Auto) 14.9 H (1-9) % Eos % (Auto) 0.5 (0-6) % Baso % (Auto) 0.4 (0-2) % Absolute Neuts (auto) 2.7 (1.5-7.7) 10^3/ul Absolute Lymphs (auto) 1.9 (1.0-4.8) 10^3/ul Absolute Monos (auto) 0.8 (0-0.8) 10^3/ul Absolute Eos (auto) 0 (0-0.6) 10^3/ul Absolute Basos (auto) 0 (0-0.2) 10^3/ul Absolute Nucleated RBC 0.01 10^3/ul Nucleated RBC % 0.1 INR (Anticoag Therapy) 1.03 (0.89-1.11) Sodium 131 L (133-145) mmol/L Potassium 3.9 (3.5-5.0) mmol/L Chloride 106 (101-111) mmol/L Carbon Dioxide 23 (22-32) mmol/L Anion Gap 2 (2-11) mmol/L BUN 12 (6-24) mg/dL Creatinine 0.39 L (0.51-0.95) mg/dL Est GFR ( Amer) 239.2 (>60) Est GFR (Non-Af Amer) 186.0 (>60) BUN/Creatinine Ratio 30.8 H (8-20) Glucose 98 (70-100) mg/dL Lactic Acid (0.5-2.0) mmol/L Calcium 9.8 (8.6-10.3) mg/dL Magnesium 2.0 (1.9-2.7) mg/dL Total Bilirubin 0.60 (0.2-1.0) mg/dL AST 18 (13-39) U/L ALT 16 (7-52) U/L Alkaline Phosphatase 109 H (34-104) U/L Total Creatine Kinase 28 (10-223) U/L Troponin I 0.00 (<0.04) ng/mL C-Reactive Protein 2.17 (< 5.00) mg/L B-Natriuretic Peptide ( - 100) pg/mL Total Protein 7.3 (6.4-8.9) g/dL Albumin 3.9 (3.2-5.2) g/dL Globulin 3.4 (2-4) g/dL Albumin/Globulin Ratio 1.1 (1-3) TSH 0.06 L (0.34-5.60) mcIU/mL Free T4 5.59 H (0.61-1.12) ng/dL Free T3 21.20 H (2.5-3.9) pg/mL Urine Color Urine Appearance Urine pH (5-9) Ur Specific [place] (1.010-1.030) Urine Protein (Negative) Urine Ketones (Negative) Urine Blood (Negative) Urine Nitrate (Negative) Urine Bilirubin (Negative) Urine Urobilinogen (Negative) Ur Leukocyte Esterase (Negative) Urine Glucose (Negative) 01/06/17 01/06/17 01/06/17 Range/Units 14:45 14:45 16:30 WBC (3.5-10.8) 10^3/ul RBC (4.0-5.4) 10^6/ul Hgb (12.0-16.0) g/dl Hct (35-47) % MCV (80-97) fL MCH (27-31) pg MCHC (31-36) g/dl RDW (10.5-15) % Plt Count (150-450) 10^3/ul MPV (7.4-10.4) um3 Neut % (Auto) (38-83) % Lymph % (Auto) (25-47) % [place] % (Auto) (1-9) % Eos % (Auto) (0-6) % Baso % (Auto) (0-2) % Absolute Neuts (auto) (1.5-7.7) 10^3/ul Absolute Lymphs (auto) (1.0-4.8) 10^3/ul Absolute Monos (auto) (0-0.8) 10^3/ul Absolute Eos (auto) (0-0.6) 10^3/ul Absolute Basos (auto) (0-0.2) 10^3/ul Absolute Nucleated RBC 10^3/ul Nucleated RBC % INR (Anticoag Therapy) (0.89-1.11) Sodium (133-145) mmol/L Potassium (3.5-5.0) mmol/L Chloride (101-111) mmol/L Carbon Dioxide (22-32) mmol/L Anion Gap (2-11) mmol/L BUN (6-24) mg/dL Creatinine (0.51-0.95) mg/dL Est GFR ( Amer) (>60) Est GFR (Non-Af Amer) (>60) BUN/Creatinine Ratio (8-20) Glucose (70-100) mg/dL Lactic Acid 1.2 (0.5-2.0) mmol/L Calcium (8.6-10.3) mg/dL Magnesium (1.9-2.7) mg/dL Total Bilirubin (0.2-1.0) mg/dL AST (13-39) U/L ALT (7-52) U/L Alkaline Phosphatase (34-104) U/L Total Creatine Kinase (10-223) U/L Troponin I (<0.04) ng/mL C-Reactive Protein (< 5.00) mg/L B-Natriuretic Peptide 13 ( - 100) pg/mL Total Protein (6.4-8.9) g/dL Albumin (3.2-5.2) g/dL Globulin (2-4) g/dL Albumin/Globulin Ratio (1-3) TSH (0.34-5.60) mcIU/mL Free T4 (0.61-1.12) ng/dL Free T3 (2.5-3.9) pg/mL Urine Color Straw Urine Appearance Clear Urine pH 5.0 (5-9) Ur Specific [place] 1.006 L (1.010-1.030) Urine Protein Negative (Negative) Urine Ketones 1+ H (Negative) Urine Blood Negative (Negative) Urine Nitrate Negative (Negative) Urine Bilirubin Negative (Negative) Urine Urobilinogen Negative (Negative) Ur Leukocyte Esterase Negative (Negative) Urine Glucose Negative (Negative) Assess/Plan/Problems-Billing Assessment: 35 yo F p/w lakshmi in setting of thyroid storm - Patient Problems (1) Thyroid storm Comment: Appreciate extensive assistance from Dr. Mcnally and psychiatry Medication regimen titrated to provide limited medications which patient is likely to benefit from and hopefully less likely to decline c/w PTU and propranolol SR with goal HR 60-80 bpm discontinue steroids, iodine drops, and cholesytramine Patient lacks capacity and cannot refuse medications HCP/ agrees with treating over objection if patient declines medication Pt with some apparent improvement in lakshmi today however briefly tachycardic and with low grade fever. Tachycardia resolved at this time. Will not adjust medicatoins unless HR difficult to control or fever continues. (2) Lakshmi Comment: In setting of thyroid storm +SI, must remain on 1:1 Patient CANNOT leave AMA at this time. Ativan PRN for anxiety or agitation Seroquel PRN for anxiety or agitation I suspect pt will need stay at MHU prior to discharge home unless lakshmi exibits significant improvement. Psychiatry's continued assistance is appreciated (3) DVT prophylaxis Comment: lovenox
[2016-02-26] MEDS: Enoxaparin(*) 40 MG/0.4 ML SYR SUBCUT SCH (19:11)
[2016-02-27] MEDS: Propranolol LA CAP* 80 MG PO SCH ×2 (08:37→20:33)
[2016-02-27] MEDS: Propylthiouracil TAB* 50 MG PO SCH ×4 (08:37→20:50)
--- NOTE | 2016-02-27 09:08 | PN ---
Progress Note - Progress Note Note: Follow up endocrine consultation: I spoke with the patient and her at length (10 mins). She continues to have paranoid ideation. However, this is improving. She has less pressure of speech, she is able to follow a train of thought and she is also able to understand my conversation. She has fewer symptoms of hyperthyroidism. I spoke at length to her former primary care provider Dr. Hannah Blanca in [place]. When her FT4 was 2.3 she was rational and only a little anxious - she would not have characterized her as manic/psychotic. But when her FT4 was higher she was psychotic. I think she will continue to improve over the next few days. I think she needs hospitalization as she remains severely hyperthyroid. However, I don't think she warrants a psychiatric admission as she is cooperative. She accepts the therapeutic plan - render her euthyroid and then refer for a subtotal thyroidectomy to an experienced endocrine surgeon.
--- NOTE | 2016-02-27 15:34 | PN ---
Subjective Date of Service: 02/27/16 Interval History: Seen and examined with at bedside Pt reports constipation but declines medication. Reports excruciating pain in left pain Denies additional palpitations Tells me her god is a pig who turned into BBQ and she ate for nourishment. Objective Active Medications: Acetaminophen (Tylenol Tab*) 650 mg PO Q4H PRN PRN Reason: FEVER/PAIN Last Admin: 02/22/16 23:26 Dose: 650 mg Enoxaparin Sodium (Lovenox(*)) 40 mg SUBCUT Q24H [facility] Last Admin: 02/26/16 19:11 Dose: Not Given Lorazepam (Ativan Inj*) 1 mg IV PUSH Q6H PRN PRN Reason: ANXIETY Propranolol HCl (Inderal La Cap*) 80 mg PO BID [facility] Last Admin: 02/27/16 08:37 Dose: 80 mg Propylthiouracil (Ptu Tab*) 200 mg PO QID [facility] Last Admin: 02/27/16 13:38 Dose: 200 mg Quetiapine Fumarate (Seroquel Tab*) 50 mg PO Q4H PRN PRN Reason: AGITATION/ANXIETY Vital Signs 02/26/16 02/26/16 02/26/16 15:40 19:12 20:01 Temperature 98.0 F 98.0 F Pulse Rate 85 85 Respiratory 16 20 18 Rate Blood Pressure 126/65 119/71 (mmHg) O2 Sat by Pulse 98 98 Oximetry 02/26/16 02/27/16 02/27/16 23:19 07:47 08:00 Temperature 97.8 F Pulse Rate 78 88 Respiratory 16 16 16 Rate Blood Pressure 107/64 115/75 (mmHg) O2 Sat by Pulse 100 99 Oximetry Oxygen Devices in Use Now: None Appearance: NAD Eyes: No Scleral Icterus, PERRLA Ears/Nose/Mouth/Throat: NL Teeth, Lips, Gums, Mucous Membranes Moist Neck: NL Appearance and Movements; NL JVP, Trachea Midline Respiratory: Symmetrical Chest Expansion and Respiratory Effort, Clear to Auscultation Cardiovascular: NL Sounds; No Murmurs; No JVD, RRR Abdominal: NL Sounds; No Tenderness; No Distention, No Hepatosplenomegaly Lymphatic: No Cervical Adenopathy Extremities: No Edema, - Skin: - - left great toe with nail mostly off and small lateral lalceration Neurological: - - Able to indicate her name and where she is. Still with pressured speech, less tangential Result Diagrams: 02/23/16 04:38 02/26/16 04:58 Additional Lab and Data: Lab Results 02/22/16 02/22/16 02/22/16 Range/Units 14:45 14:45 14:45 WBC 5.4 (3.5-10.8) 10^3/ul RBC 5.43 H (4.0-5.4) 10^6/ul Hgb 14.2 (12.0-16.0) g/dl Hct 44 (35-47) % MCV 81 (80-97) fL MCH 26 L (27-31) pg MCHC 32 (31-36) g/dl RDW 13 (10.5-15) % Plt Count 297 (150-450) 10^3/ul MPV 8 (7.4-10.4) um3 Neut % (Auto) 48.9 (38-83) % Lymph % (Auto) 35.3 (25-47) % [place] % (Auto) 14.9 H (1-9) % Eos % (Auto) 0.5 (0-6) % Baso % (Auto) 0.4 (0-2) % Absolute Neuts (auto) 2.7 (1.5-7.7) 10^3/ul Absolute Lymphs (auto) 1.9 (1.0-4.8) 10^3/ul Absolute Monos (auto) 0.8 (0-0.8) 10^3/ul Absolute Eos (auto) 0 (0-0.6) 10^3/ul Absolute Basos (auto) 0 (0-0.2) 10^3/ul Absolute Nucleated RBC 0.01 10^3/ul Nucleated RBC % 0.1 INR (Anticoag Therapy) 1.03 (0.89-1.11) Sodium 131 L (133-145) mmol/L Potassium 3.9 (3.5-5.0) mmol/L Chloride 106 (101-111) mmol/L Carbon Dioxide 23 (22-32) mmol/L Anion Gap 2 (2-11) mmol/L BUN 12 (6-24) mg/dL Creatinine 0.39 L (0.51-0.95) mg/dL Est GFR ( Amer) 239.2 (>60) Est GFR (Non-Af Amer) 186.0 (>60) BUN/Creatinine Ratio 30.8 H (8-20) Glucose 98 (70-100) mg/dL Lactic Acid (0.5-2.0) mmol/L Calcium 9.8 (8.6-10.3) mg/dL Magnesium 2.0 (1.9-2.7) mg/dL Total Bilirubin 0.60 (0.2-1.0) mg/dL AST 18 (13-39) U/L ALT 16 (7-52) U/L Alkaline Phosphatase 109 H (34-104) U/L Total Creatine Kinase 28 (10-223) U/L Troponin I 0.00 (<0.04) ng/mL C-Reactive Protein 2.17 (< 5.00) mg/L B-Natriuretic Peptide ( - 100) pg/mL Total Protein 7.3 (6.4-8.9) g/dL Albumin 3.9 (3.2-5.2) g/dL Globulin 3.4 (2-4) g/dL Albumin/Globulin Ratio 1.1 (1-3) TSH 0.06 L (0.34-5.60) mcIU/mL Free T4 5.59 H (0.61-1.12) ng/dL Free T3 21.20 H (2.5-3.9) pg/mL Urine Color Urine Appearance Urine pH (5-9) Ur Specific [place] (1.010-1.030) Urine Protein (Negative) Urine Ketones (Negative) Urine Blood (Negative) Urine Nitrate (Negative) Urine Bilirubin (Negative) Urine Urobilinogen (Negative) Ur Leukocyte Esterase (Negative) Urine Glucose (Negative) 02/22/16 02/22/16 02/22/16 Range/Units 14:45 14:45 16:30 WBC (3.5-10.8) 10^3/ul RBC (4.0-5.4) 10^6/ul Hgb (12.0-16.0) g/dl Hct (35-47) % MCV (80-97) fL MCH (27-31) pg MCHC (31-36) g/dl RDW (10.5-15) % Plt Count (150-450) 10^3/ul MPV (7.4-10.4) um3 Neut % (Auto) (38-83) % Lymph % (Auto) (25-47) % [place] % (Auto) (1-9) % Eos % (Auto) (0-6) % Baso % (Auto) (0-2) % Absolute Neuts (auto) (1.5-7.7) 10^3/ul Absolute Lymphs (auto) (1.0-4.8) 10^3/ul Absolute Monos (auto) (0-0.8) 10^3/ul Absolute Eos (auto) (0-0.6) 10^3/ul Absolute Basos (auto) (0-0.2) 10^3/ul Absolute Nucleated RBC 10^3/ul Nucleated RBC % INR (Anticoag Therapy) (0.89-1.11) Sodium (133-145) mmol/L Potassium (3.5-5.0) mmol/L Chloride (101-111) mmol/L Carbon Dioxide (22-32) mmol/L Anion Gap (2-11) mmol/L BUN (6-24) mg/dL Creatinine (0.51-0.95) mg/dL Est GFR ( Amer) (>60) Est GFR (Non-Af Amer) (>60) BUN/Creatinine Ratio (8-20) Glucose (70-100) mg/dL Lactic Acid 1.2 (0.5-2.0) mmol/L Calcium (8.6-10.3) mg/dL Magnesium (1.9-2.7) mg/dL Total Bilirubin (0.2-1.0) mg/dL AST (13-39) U/L ALT (7-52) U/L Alkaline Phosphatase (34-104) U/L Total Creatine Kinase (10-223) U/L Troponin I (<0.04) ng/mL C-Reactive Protein (< 5.00) mg/L B-Natriuretic Peptide 13 ( - 100) pg/mL Total Protein (6.4-8.9) g/dL Albumin (3.2-5.2) g/dL Globulin (2-4) g/dL Albumin/Globulin Ratio (1-3) TSH (0.34-5.60) mcIU/mL Free T4 (0.61-1.12) ng/dL Free T3 (2.5-3.9) pg/mL Urine Color Straw Urine Appearance Clear Urine pH 5.0 (5-9) Ur Specific [place] 1.006 L (1.010-1.030) Urine Protein Negative (Negative) Urine Ketones 1+ H (Negative) Urine Blood Negative (Negative) Urine Nitrate Negative (Negative) Urine Bilirubin Negative (Negative) Urine Urobilinogen Negative (Negative) Ur Leukocyte Esterase Negative (Negative) Urine Glucose Negative (Negative) Assess/Plan/Problems-Billing Assessment: 35 yo F p/w lakshmi in setting of thyroid storm - Patient Problems (1) Thyroid storm Comment: Appreciate extensive assistance from Dr. Mcnally and psychiatry Medication regimen titrated to provide limited medications which patient is likely to benefit from and hopefully less likely to decline c/w PTU and propranolol SR - HR controlled. No events on telemetry discontinued steroids, iodine drops, and cholesytramine Patient lacks capacity and cannot refuse medications HCP/ agrees with treating over objection if patient declines medication Pt with some apparent improvement in lakshmi (2) Lakshmi Comment: In setting of thyroid storm Must remain on 1:[address] Zainab ching 02/26 who thinks she would benefit from MHU stay. She is currently medically clear for transfer to [facility]HU but there are no beds yet available. Patient CANNOT leave AMA at this time. Ativan PRN for anxiety or agitation Seroquel PRN for anxiety or agitation (3) DVT prophylaxis Comment: lovenox
--- NOTE | 2016-02-27 18:54 | PN ---
Progress Note - Progress Note Note: Met briefly today. She ended the interview. She says she does not want a psychiatric admission and would we please respect her orthodoxy, oddly described earlier to Dr Romero. She remains psychotic and in need of psychiatric care as she recovers from her hyperthyroid crisis. Will admit to [facility] or other psychiatric unit once beds are available.
[2016-02-27] MEDS: Enoxaparin(*) 40 MG/0.4 ML SYR SUBCUT SCH (20:49)
[2016-02-28 05:23] LABS: BUN/Creatinine Ratio 36.4 (8-20); Calcium 9.4 mg/dL (8.6-10.3); EGFR African American 208.1 (>60); EGFR Non-African American 161.8 (>60); Potassium 3.4 mmol/L (3.5-5.0)
[2016-02-28 06:14] LABS: TSH (Thyroid Stimulating Horm) 0.19 mcIU/mL (0.34-5.60)
[2016-02-28 06:18] LABS: Free T3 5.1 pg/mL (2.5-3.9)
[2016-02-28 06:19] LABS: Free T4 4.2 ng/dL (0.61-1.12)
[2016-02-28 06:23] LABS: Total T3 1.35 ng/mL (0.87-1.78)
[2016-02-28] MEDS: Propylthiouracil TAB* 50 MG PO SCH ×4 (09:01→20:21)
[2016-02-28] MEDS: Propranolol LA CAP* 80 MG PO SCH ×2 (09:02→20:21)
--- NOTE | 2016-02-28 10:17 | PN ---
Progress Note - Progress Note Note: Endocrinology consultation follow up report: I met with the patient, her and her brother who has arrived from [facility]. She continues to have delusions and according to her pressure of speech. However, she is able to listen to me without interrupting and appears to accept my interpretation of her current treatment response. Selected Entries 02/28/16 02/28/16 08:53 09:00 Temperature 97.9 F Heart Rate 117 Respiratory 16 Rate Blood Pressure 151/94 (mmHg) O2 Sat by Pulse 98 Oximetry Pulse record for 24 hours: Selected Entries 02/28/16 02/28/16 02/28/16 01:00 02:00 03:00 Heart Rate 89 90 91 02/28/16 02/28/16 02/28/16 04:00 05:00 06:00 Heart Rate 99 89 90 02/28/16 02/28/16 07:00 08:00 Heart Rate 90 111 Laboratory Tests 02/28/16 04:30 TSH 0.19 L Free T4 4.20 H Free T3 5.10 H Total T3 1.35 A/P 1. Thyroid storm/Graves' disease: her TFTs are improving. He pulse rate is high this morning, but the trend has been for it to be under a reasonable control, so I won't adjust the dose of propranolol. She is showing slow improvement of the thyroid storm 2. Psychosis: She continues to exhibit signs of paranoia, intrusive thoughts and delusions, but this is not as severe as when I first met her. I spoke to the patient and her family * I explained that the t1/2 thyroid hormone is 5 - 7 days so that there is a limit to the decline rate of her thyroid hormone levels. * PTU decreases the biosynthesis of thyroid hormone and clearly this is working. * Both propranolol and PTU affect the T4 to T3 conversion and her T3 total is now normal - a good sign * She may still be releasing preformed thyroid hormone as the release of thyroid hormone is not affected by PTU
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
--- NOTE | 2016-02-28 19:08 | PN ---
Progress Note - Progress Note Note: Xi remains psychotic and requires continued 1:1 until psychiatric admission.
[2016-02-28] MEDS: Enoxaparin(*) 40 MG/0.4 ML SYR SUBCUT SCH (19:58)
--- NOTE | 2016-02-29 08:43 | PN ---
Progress Note - Progress Note Note: Endocrine follow up: She notes that she is having problems with her vision - difficulty reading print , double vision. She notes she has more tears. She has very mild proptosis, slight lid lag, mild periorbital edema. Normal visual schwab. She is not able to read newspaper print. She continues to exhibit delusional and at times paranoid ideation, but is able to carry on a conversation without as much interruption. She accepts the current treatment plan. Eyes: I will discuss her vision with her attending physician. Graves' ophthalmopathy tends to run a somewhat independent course in terms of hyperthyroidism. Hence, I don't think the hyperthyroidism per se is causing the eye problems. The main consideration is whether there is a problem with the optic nerves - this is a low likelihood, but important to establish. However, this can be done as an out patient with an ophthalmology consultation. I discussed the above with the patient her . They agree to the management plan.
[2016-02-29] MEDS: Propranolol LA CAP* 80 MG PO SCH (09:36)
[2016-02-29] MEDS: Propylthiouracil TAB* 50 MG PO SCH ×3 (09:38→18:00)
--- NOTE | 2016-02-29 13:47 | PN ---
Progress Note - Progress Note Note: Psychiatry update discussed with Dr. Cummings, pt. may be medically appropriate for treatment in less intensive setting but remains mentally impaired. I met with her, she continues pressured, with hyperreligious ideation and disorgnanized thinking. Her affirms she is no where near her baseline and is globally impaired. He supports her psychiatric admissions. She may assent to it and can reasonably be on voluntary status. A complication may be psychotropic refusal on "sabianism" grounds - she claims to be in an "untranslatable" Serbian zoroastrian that prohibits analgesics and medicines affecting the mind.
[2016-02-29 17:41] VITALS: BP 135/67
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
== END 2016-02-29 19:45 | DRG 644 ==
LOC: ED 14:06 → MEDTELE 18:23
PROVIDERS: ADMIT Internal Medicine; ATTEND Internal Medicine
DX: E05.01 Thyrotoxicosis with diffuse goiter with thyrotoxic crisis or storm (principal); R45.851 Suicidal ideations; F23 Brief psychotic disorder; F31.2 Bipolar disorder, current episode manic severe with psychotic features; J45.909 Unspecified asthma, uncomplicated; Z88.8 Allergy status to other drugs, medicaments and biological substances; Z91.14 Patient's other noncompliance with medication regimen; F43.10 Post-traumatic stress disorder, unspecified; R45.1 Restlessness and agitation; Z53.29 Procedure and treatment not carried out because of patient's decision for other reasons; F41.9 Anxiety disorder, unspecified; K59.00 Constipation, unspecified; G47.00 Insomnia, unspecified
CPT/HCPCS: 36415; 70450; 71010; 80048; 80053; 80307; 81003; 82533; 82550; 82607; 83605; 83735; 83880; 84436; 84439; 84443; 84445; 84479; 84481; 84484; 85025; 85610; 86140; 93005; A9270-GY; J1630; J1720; J1800; J2060

== ENCOUNTER 2016-02-29 14:00 | Inpatient (IN) | payer OTHER ==
[2016-02-29] MEDS ORDERED: Acetaminophen TAB* 325 MG PO PRN (14:53)
[2016-02-29] MEDS ORDERED: QUEtiapine TAB* 25 MG PO PRN (14:53)
[2016-02-29] MEDS ORDERED: Naproxen TAB* 250 MG PO PRN (14:53)
[2016-02-29] MEDS: Propranolol LA CAP* 80 MG PO SCH (22:02)
[2016-02-29] MEDS: Propylthiouracil TAB* 50 MG PO SCH ×2 (22:02→23:04)
[2016-03-01 08:55] LABS: Albumin 3.7 g/dL (3.2-5.2); Direct Bilirubin 0.1 mg/dL (0.03-0.18); Globulin 3.2 g/dL (2-4); Indirect Bilirubin 0.5 mg/dL (0.3-1.0); Total Bilirubin 0.6 mg/dL (0.2-1.0); Total Protein 6.9 g/dL (6.4-8.9)
[2016-03-01 09:14] LABS: TSH (Thyroid Stimulating Horm) 0.23 mcIU/mL (0.34-5.60)
[2016-03-01 09:21] LABS: Free T4 3.65 ng/dL (0.61-1.12)
[2016-03-01] MEDS: Propranolol LA CAP* 80 MG PO SCH ×2 (09:50→21:39)
[2016-03-01] MEDS: Propylthiouracil TAB* 50 MG PO SCH ×4 (09:50→21:40)
[2016-03-01 12:02] LABS: T4 18.57 g/dL (6.09-12.23)
[2016-03-01 12:06] LABS: Free T3 5.3 pg/mL (2.5-3.9)
[2016-03-01 12:11] LABS: Total T3 1.37 ng/mL (0.87-1.78)
--- NOTE | 2016-03-01 13:00 | PN ---
Progress Note - Progress Note Note: Endocrine consult follow up She continues to complain about her vision. She declined an MRI yesterday and it may not be possible to arrange one until Thursday (if she will accept this then ). She has less pressure of speech, but she continues to have delusions and intrusive thoughts. Investigations: Laboratory Tests 03/01/16 08:07 TSH 0.23 L Free T4 3.65 H Thyroxine (T4) 18.57 H Free T3 5.30 H Total T3 1.37 A/P: 1. Hyperthyroidism: Continued improvement - continue current Rx 2. Psychosis - per psychiatry - according to her previous sales advisor, when her FT4 reached 2.3 last time around she was rational. 3. Vision change - There is a possibility this may relate to optic nerve compression from Graves' orbitopathy, but I doubt this. I think we need an MRI of her orbits to rule this out. I think that Thursday is reasonable, but if an MRI techician is in over the the weekend we can do this earlier. For TFTs 03/03/2015
--- NOTE | 2016-03-01 15:18 | PN ---
Subjective Date of Service: 03/01/16 Interval History: pt is seen in bed with her eyes closed. she prefers to have them closed to "spare them". C/o vision problems, but refuses to open eyes to be examined. Stated that I interrupted her prayers and she prefers not to be examined. Otherwise appears calmer and more cooperative than yesterday. Objective Active Medications: Acetaminophen (Tylenol Tab*) 650 mg PO Q4H PRN PRN Reason: FEVER/PAIN Naproxen (Naprosyn Tab*) 500 mg PO BID PRN PRN Reason: FEVER/PAIN Propranolol HCl (Inderal La Cap*) 80 mg PO BID [facility] Last Admin: 03/01/16 09:50 Dose: 80 mg Propylthiouracil (Ptu Tab*) 200 mg PO QID [facility] Last Admin: 03/01/16 12:54 Dose: 200 mg Quetiapine Fumarate (Seroquel Tab*) 50 mg PO Q4H PRN PRN Reason: AGITATION/ANXIETY Vital Signs 02/29/16 03/01/16 03/01/16 22:07 08:56 09:58 Temperature 98.9 F Pulse Rate 93 Respiratory 16 16 16 Rate Blood Pressure 124/71 (mmHg) O2 Sat by Pulse 99 Oximetry Oxygen Devices in Use Now: None Appearance: 35 yo F in nAD, still tangential and difficult to stay on topic. Pt refused to be examined. Continued to have her eyes closed during the interview Assess/Plan/Problems-Billing Assessment: 35 yo F with thyroid storm and lakshmi s/p transfer to MHU on 02/29/16 to cont tx. - Patient Problems (1) Thyroid storm Comment: Appreciate extensive assistance from Dr. Mcnally c/w PTU and propranolol She continues to lack capacity . Thyroid values improving as outlined in Dr. Mcnally's note from today (2) Lakshmi Comment: In setting of thyroid storm cont MHU eval, ant tx as per psychiatry (3) Vision changes Comment: pt c/o vision changes, but refuses to be examined. MRI orbits ordered. Will most likley be done on Thursday. Status and Disposition: Thank you , will see pt prn
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
[2016-03-02] MEDS: Propranolol LA CAP* 80 MG PO SCH ×2 (10:21→21:27)
[2016-03-02] MEDS: Propylthiouracil TAB* 50 MG PO SCH ×4 (10:23→21:26)
--- NOTE | 2016-03-02 17:22 | ADMNOTE ---
Identification - Identify Employment Status: Unemployed Hx Psychiatric Hospitalization: Yes Arrived to Hospital Via: Ambulatory History - Objective HPI: 35 y/o [place] female with h/o mood disregulation and hyperthyroidism, transfered fron medicine floor after stabilization of a thyroid storm. However, she continues to have hypomanic symptoms manifested as pressured speech, euphoria, inflated self esteem and grandiosity. Not psychotic at this time. Lab Results: Laboratory Tests 03/01/16 08:07 Total Bilirubin 0.60 Direct Bilirubin 0.10 Indirect Bilirubin 0.5 AST 13 ALT 13 Alkaline Phosphatase 102 Total Protein 6.9 Albumin 3.7 Globulin 3.2 Albumin/Globulin Ratio 1.2 TSH 0.23 L Free T4 3.65 H Thyroxine (T4) 18.57 H Free T3 5.30 H Total T3 1.37 Exam Appearance: Healthy Appearing Hygiene: Normal Grooming: Fairly Well Kept Psychomotor Activities: Abnormal-Increased Exhibits Abnormal Movement: No Attitude and Relatedness: Appropriate Eye Contact: Good - Speech Quality: Pressured Latencies: Short Quantity: Copious Patient's Decription of Mood: "Great" Observed Affect: Expansive Affect Consistent with: Euphoria Patient's Thought Process: Coherent, Goal Directed, Circumstantial, Over Inclusive Thought Content: No Passive Wish, No Suicidal Planning, No Homicidal Ideation, No Paranoid Ideation Experiencing Hallucinations: No, Sensorium is Clear Type of Hallucinations: Visual: No, Auditory: No, Command: No Level of Consciousness: Alert Orientation: Yes Intact, Yes Orientated to Time, Yes Orientated to Place, Yes Orientated to Person Impulse Control: Intact Insight and Judgement: Poor Impression - Impression Merits Inpatient Hospitalization: Yes - [facility] Mental Illness: 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 - [facility] Medical Illness: Thyrotoxicosis Plan - Treatment Plan Continued Medication Management: Continue Outpt Medication Medications: Current Medications Acetaminophen (Tylenol Tab*) 650 mg PO Q4H PRN PRN Reason: FEVER/PAIN Naproxen (Naprosyn Tab*) 500 mg PO BID PRN PRN Reason: FEVER/PAIN Propranolol HCl (Inderal [place]*) 80 mg PO BID [facility] Last Admin: 03/02/16 10:21 Dose: 80 mg Propylthiouracil (Ptu Tab*) 200 mg PO QID [facility] Last Admin: 03/02/16 14:05 Dose: 200 mg Quetiapine Fumarate (Seroquel Tab*) 50 mg PO Q4H PRN PRN Reason: AGITATION/ANXIETY - Discharge Plan Discharge Plan: Outpatient Follow Up Outpatient Program: [facility]
[2016-03-03] MEDS: Propylthiouracil TAB* 50 MG PO SCH ×4 (09:40→21:47)
[2016-03-03] MEDS: Propranolol LA CAP* 80 MG PO SCH ×2 (09:40→21:47)
--- NOTE | 2016-03-03 15:17 | PN ---
Subjective - Subjective Service Type: 04651 Hosp care 15 min low complexity Subjective: No change from baseline. Still hyperverbal, cercumstantial, pressured and tengential. Keeping her head ab eyes mostly covered because of restorationist reasons. Objective - Appearance Appearance: Thin Framed Dysmorphic Features: No Hygiene: Normal Grooming: Well Kept - Behavior Psychomotor Activities: Abnormal-Increased Exhibits Abnormal Movement: No - Attitude and Relatedness Attitude and Relatedness: Appropriate Eye Contact: Fair - Speech Quality: Pressured Latencies: Short Quantity: Copious - Mood Patient's Decription of Mood: "Fine" - Affect Observed Affect: Expansive - Thought Process Patient's Thought Process: Coherent, Disorganized, Loose Associations, Tangential, Circumstantial, Over Inclusive Thought Content: No Passive Wish, No Suicidal Planning, No Homicidal Ideation, No Paranoid Ideation - Sensorium Experiencing Hallucinations: No, Sensorium is Clear Type of Hallucinations: Visual: No, Auditory: No, Command: No - Level of Consciousness Level of Consciousness: Alert Orientation: Yes Intact, Yes Orientated to Time, Yes Orientated to Place, Yes Orientated to Person - Impulse Control Impulse Control: Intact - Insight and Judgement Insight and Judgement: Poor - Group Participation Particating in Group Activities: No - Medication Management Medication Management Adherence: Yes Assessment - Assessment Merits Inpatient Hospitalization: For Immediate Safety, For Stabilization, Pending Safe DC Plan Plan - Plan Treatment Plan: Name: ROSA TEMPEL Birthdate: 1980 [id number] Continued Medication Management: Continue Outpt Medication Medications: Current Medications Acetaminophen (Tylenol Tab*) 650 mg PO Q4H PRN PRN Reason: FEVER/PAIN Naproxen (Naprosyn Tab*) 500 mg PO BID PRN PRN Reason: FEVER/PAIN Propranolol HCl (Inderal [place]*) 80 mg PO BID [facility] Last Admin: 03/03/16 09:40 Dose: 80 mg Propylthiouracil (Ptu Tab*) 200 mg PO QID [facility] Last Admin: 03/03/16 14:25 Dose: 200 mg Quetiapine Fumarate (Seroquel Tab*) 50 mg PO Q4H PRN PRN Reason: AGITATION/ANXIETY - Discharge Plan Discharge Plan: Outpatient Follow Up Outpatient Program: [facility]
[2016-03-04 08:01] LABS: Free T3 5.7 pg/mL (2.5-3.9)
[2016-03-04 08:02] LABS: Free T4 3.64 ng/dL (0.61-1.12)
[2016-03-04 08:06] LABS: Total T3 1.45 ng/mL (0.87-1.78)
--- NOTE | 2016-03-04 08:41 | PN ---
Subjective - Subjective Reason for Note: Progress Note History: She continues to have intrusive delusions that affect her account of herself. She denies any thyroid symptoms - no palpitations, heat intolerance, frequent defecation. She has had no adverse effects from this dose of PTU. She appears less concerned about her vision, however, continues to state that it is affected. Active Problems: Active Problems Vision changes (Acute) H53.9 pt c/o vision changes, but refuses to be examined. MRI orbits ordered. Will most likley be done on Thursday. Current Medications: Current Medications Acetaminophen (Tylenol Tab*) 650 mg PO Q4H PRN PRN Reason: FEVER/PAIN Naproxen (Naprosyn Tab*) 500 mg PO BID PRN PRN Reason: FEVER/PAIN Propranolol HCl (Inderal [place]*) 80 mg PO BID [facility] Last Admin: 03/03/16 21:47 Dose: 80 mg Propylthiouracil (Ptu Tab*) 200 mg PO QID [facility] Last Admin: 03/03/16 21:47 Dose: 200 mg Quetiapine Fumarate (Seroquel Tab*) 50 mg PO Q4H PRN PRN Reason: AGITATION/ANXIETY Home Medications: Home Medications Medication Instructions Recorded Confirmed Type Naproxen TAB* [Naprosyn TAB*] 500 mg PO BID PRN 02/22/16 02/22/16 History Allergies: Allergies Allergy/AdvReac Type Severity Reaction Status Date / Time Methimazole Allergy Hives Verified 03/01/16 16:03 Objective - Vital Signs Vital Signs: Vital Signs 03/03/16 03/04/16 14:25 08:14 Temperature 99.0 F Pulse Rate 88 Respiratory 16 16 Rate Blood Pressure 137/77 (mmHg) O2 Sat by Pulse 100 Oximetry - Intake and Output Intake and Output: Intake & Output 03/01/16 03/02/16 03/03/16 03/04/16 11:59 11:59 11:59 11:59 Weight 110 lb ADLs: Meal Record Start: 02/29/16 20: 17 Freq: Status: Active Created 02/29/16 20:17 System (Rec: 02/29/16 20:17 System [id number] Results - Results Lab Results: Laboratory Results - last 24 hr 03/04/16 06:58 Free T4 3.64 H Free T3 5.70 H Total T3 1.45 Assessment - Problem List Assessment: Patient Problems Vision changes (Acute) DVT prophylaxis (Acute) Graves disease (Acute) Lakshmi (Acute) Thyroid storm (Acute) Plan: Her thyroid function tests show no significant change in the past 3 days. I think we should increase the dose of PTU. I explained this to the patient and she agrees to this. I will increase it 225 mg qid - total daily dose of 900 mg/ dl. I will check her LFTs and also her CBC. I think we should consider lithium therapy as this is also anti-thyroid - it may also have a beneficial affect on her hypomanic state.
[2016-03-04 09:02] LABS: Albumin 3.9 g/dL (3.2-5.2); Direct Bilirubin 0.1 mg/dL (0.03-0.18); Globulin 3.2 g/dL (2-4); Indirect Bilirubin 0.6 mg/dL (0.3-1.0); Total Bilirubin 0.7 mg/dL (0.2-1.0); Total Protein 7.1 g/dL (6.4-8.9)
[2016-03-04] MEDS: Propylthiouracil TAB* 50 MG PO SCH ×4 (09:12→20:37)
[2016-03-04] MEDS: Propranolol LA CAP* 80 MG PO SCH ×2 (09:14→20:38)
--- NOTE | 2016-03-04 10:27 | PN ---
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 She expects discharge in an hour - I explained the hospital will not allow it and will process a court hearing if needed. She refused to consider psychiatric medications - I advised her Dr. Mcnally and I recommend lithium. She was highly praising of me. Objective - Appearance Appearance: Thin Framed Dysmorphic Features: No Hygiene: Normal Grooming: Fairly Well Kept - Attitude and Relatedness Attitude and Relatedness: Psychotically Related Eye Contact: Good - Speech Quality: Pressured Latencies: Short Quantity: Copious - Mood Patient's Decription of Mood: "Anxious" - Affect Observed Affect: Expansive Affect Consistent with: Euthymia - Thought Process Patient's Thought Process: Disorganized, Loose Associations, Over Inclusive Thought Content: Yes Paranoid Ideation, No Passive Wish, No Suicidal Planning, No Homicidal Ideation - Sensorium Experiencing Hallucinations: No, Sensorium is Clear - Level of Consciousness Level of Consciousness: Alert - Impulse Control Impulse Control: Impaired - Insight and Judgement Insight and Judgement: Impaired Assessment - Assessment Merits Inpatient Hospitalization: For Immediate Safety, For Stabilization, To Initiate Treatment, For Ongoing Evaluation, For Discharge Planning, Pending Safe DC Plan Inpatient DSM-IV Dx: Bipolar and related disorder (Psychotic) due to another medical condition (hyperthyroidism). Clinical Impression: 35 y/o occitan female with possible history of PTSD and psychiatric admission, and reported prior suicidal behavior, and history of hyperthyroidism. She was admitted to psychiatry after treatment on the hospitalist medicine service due to psychosis and manic affective symptoms, apparently due to "Thyroid Storm." Continues impaired with psychosis (delusions and thought disorder), and manic affective features. Medical management is with consultation from Dr. Mcnally (appreciated) Complication is patient's refusal of indicated treatment/tests (refusing medication, refused MRI last evening). Given symptom/impairment severity, requires continued care - court hearing on her demand for release, and consideration of Order for treatment over objection. Medication management: will over [place] now Plan - Plan Treatment Plan: Name: TANA TEMPLE Birthdate: 1980 [id number] Continued Medication Management: Start Medication Medications: Current Medications Acetaminophen (Tylenol Tab*) 650 mg PO Q4H PRN PRN Reason: FEVER/PAIN [place] Carbonate ([place] Carbonate Tab*) 300 mg PO BID ON LICENSE OF [facility] Naproxen (Naprosyn Tab*) 500 mg PO BID PRN PRN Reason: FEVER/PAIN Propranolol HCl (Inderal La Cap*) 80 mg PO BID [facility] OF [facility] Last Admin: 03/04/16 09:14 Dose: 80 mg Propylthiouracil (Ptu Tab*) 225 mg PO QID [facility] OF [facility] Last Admin: 03/04/16 09:12 Dose: 225 mg Quetiapine Fumarate (Seroquel Tab*) 50 mg PO Q4H PRN PRN Reason: AGITATION/ANXIETY - Discharge Plan Discharge Plan: Outpatient Follow Up
[2016-03-04] MEDS: Lithium Carbonate TAB* 300 MG PO SCH ×3 (11:07→20:37)
[2016-03-05] MEDS: Propranolol LA CAP* 80 MG PO SCH ×2 (08:42→21:16)
[2016-03-05] MEDS: Lithium Carbonate TAB* 300 MG PO SCH ×2 (08:42→21:25)
[2016-03-05] MEDS: Propylthiouracil TAB* 50 MG PO SCH ×4 (08:42→21:17)
--- NOTE | 2016-03-05 11:03 | PN ---
Subjective - Subjective Service Type: 34622 Hosp care 15 min low complexity Subjective: Tana was standing in the bathroom in the dark - she said it was "morning prayers. " She thanked me for "not locking (her) up." I shared Dr. Mcnally's and my opinion about lithium, encouraged her to take it. She did not respond directly. She said she can't go forward without a "BRIANA shipwright" - she said BRIANA is "a dialect of Farsi." I spoke with her by phone: He affirmed he is encouraging Tana to accept treatment. Said she is suspicious of him and trying to prohibit him from cooperating with us. He said she does not speak Farsi. Objective - Appearance Appearance: Thin Framed Hygiene: Normal Grooming: Well Kept - Behavior Psychomotor Activities: Normal - Attitude and Relatedness Attitude and Relatedness: Psychotically Related Eye Contact: Good - Speech Quality: Unpressured Latencies: Long Quantity: Appropriate - Mood Patient's Decription of Mood: "Anxious" - Affect Observed Affect: Expansive Affect Consistent with: Euthymia - Thought Process Patient's Thought Process: Disorganized, Loose Associations Thought Content: Yes Paranoid Ideation, No Passive Wish, No Suicidal Planning, No Homicidal Ideation - Sensorium Experiencing Hallucinations: No, Sensorium is Clear - Level of Consciousness Level of Consciousness: Alert - Impulse Control Impulse Control: Tenuous - Insight and Judgement Insight and Judgement: Impaired Assessment - Assessment Merits Inpatient Hospitalization: For Immediate Safety, For Stabilization, To Initiate Treatment, For Discharge Planning, Pending Safe DC Plan Inpatient DSM-IV Dx: Bipolar and related disorder (Psychotic) due to another medical condition (hyperthyroidism). Clinical Impression: 35 y/o german female with possible history of PTSD and psychiatric admission, and reported prior suicidal behavior, and history of hyperthyroidism. She was admitted to psychiatry after treatment on the hospitalist medicine service due to psychosis and manic affective symptoms, apparently due to "Thyroid Storm." Continues impaired with psychosis (delusions and thought disorder), and manic affective features. Medical management is with consultation from Dr. Mcnally (appreciated) Nut Process Helper question: Tana asks for shipwright for terminology, it is a moving target (Farsi-Mandarin-"BRIANA"). It appears that this is a distraction and function of her mental illness - she demonstrates no problem with Malay comprehension - but, it is appropriate to accommodate it if she wants interpretation in a language she actually understands. Complication is patient's refusal of indicated treatment/tests (refusing medication, refused MRI last evening). Given symptom/impairment severity, she requires continued care - and consideration of Order for treatment over objection. Medication management: will offer [place] now Plan - Plan Treatment Plan: Name: TANA TEMPLE Birthdate: 1980 [id number] Continued Medication Management: Start Medication Medications: Current Medications Acetaminophen (Tylenol Tab*) 650 mg PO Q4H PRN PRN Reason: FEVER/PAIN [place] Carbonate ([place] Carbonate Tab*) 300 mg PO BID [facility] Last Admin: 03/05/16 08:42 Dose: Not Given Naproxen (Naprosyn Tab*) 500 mg PO BID PRN PRN Reason: FEVER/PAIN Propranolol HCl (Inderal La Cap*) 80 mg PO BID [facility] Last Admin: 03/05/16 08:42 Dose: 80 mg Propylthiouracil (Ptu Tab*) 225 mg PO QID [facility] Last Admin: 03/05/16 08:42 Dose: 225 mg Quetiapine Fumarate (Seroquel Tab*) 50 mg PO Q4H PRN PRN Reason: AGITATION/ANXIETY - Discharge Plan Discharge Plan: Outpatient Follow Up
[2016-03-06] MEDS: Propranolol LA CAP* 80 MG PO SCH ×2 (09:48→21:23)
[2016-03-06] MEDS: Propylthiouracil TAB* 50 MG PO SCH ×4 (09:50→21:23)
[2016-03-06] MEDS: Lithium Carbonate TAB* 300 MG PO SCH ×2 (09:53→21:27)
--- NOTE | 2016-03-06 13:40 | PN ---
Subjective - Subjective Service Type: 49872 Hosp care 15 min low complexity Subjective: Tana spoke about Confucianism hoahaoism themes, concern that "we are seen as terrorists " and showed me her extensive recent writings. She refused to consider Marty. I joined with her on a conference call with [employer] services and spoke with customer services exploring German dialects available. She declined to try to communicate in German. They did not recognize or support "Dorina." She said she needs "Sri Lankan help to publish this." She did not demonstrate comprehension problems with me or with the historic interpreter service ( romanian). Objective - Appearance Appearance: Thin Framed Hygiene: Normal - Behavior Psychomotor Activities: Abnormal-Increased - Attitude and Relatedness Attitude and Relatedness: Psychotically Related Eye Contact: Good - Speech Quality: Pressured Latencies: Short Quantity: Copious - Mood Patient's Decription of Mood: "Great" - Affect Affect Consistent with: Euthymia - Thought Process Patient's Thought Process: Disorganized, Loose Associations, Over Inclusive Thought Content: No Passive Wish, No Suicidal Planning, No Homicidal Ideation, No Paranoid Ideation - Sensorium Experiencing Hallucinations: No, Sensorium is Clear - Impulse Control Impulse Control: Tenuous - Insight and Judgement Insight and Judgement: Impaired Assessment - Assessment Merits Inpatient Hospitalization: For Immediate Safety, For Stabilization Inpatient DSM-IV Dx: Bipolar and related disorder (Psychotic) due to another medical condition (hyperthyroidism). Clinical Impression: 35 y/o nepali female with possible history of PTSD and psychiatric admission, and reported prior suicidal behavior, and history of hyperthyroidism. She was admitted to psychiatry after treatment on the hospitalist medicine service due to psychosis and manic affective symptoms, apparently due to "Thyroid Storm." Continues impaired with psychosis (delusions and thought disorder), and manic affective features (pressured speech, hyperreligiosity, hypergraphia). Medical management is with consultation from Dr. Mcnally (appreciated) Preschool Teacher Aide question: Tana has asked for historic interpreter in "Dorina" which may refer to a German dialect or related language to Carolyn, which her says she does not speak. Her Sri Lankan appears competent. We attempted contact with [employer] ([email or web address]), but it did not support "Dorina." Complication is patient's refusal of indicated treatment/tests (refusing medication, refused MRI ). Given symptom/impairment severity, she requires continued care - and it is appropriate to seek Order for treatment over objection. Medication management: offering Marty now Plan - Plan Treatment Plan: Name: TANA TEMPLE Birthdate: 1980 [id number] Continued Medication Management: Start Medication Medications: Current Medications Acetaminophen (Tylenol Tab*) 650 mg PO Q4H PRN PRN Reason: FEVER/PAIN Marty Carbonate (Marty Carbonate Tab*) 300 mg PO BID [facility] Last Admin: 03/06/16 09:53 Dose: Not Given Naproxen (Naprosyn Tab*) 500 mg PO BID PRN PRN Reason: FEVER/PAIN Propranolol HCl (Inderal La Cap*) 80 mg PO BID [facility] Last Admin: 03/06/16 09:48 Dose: 80 mg Propylthiouracil (Ptu Tab*) 225 mg PO QID [facility] Last Admin: 03/06/16 13:29 Dose: 225 mg Quetiapine Fumarate (Seroquel Tab*) 50 mg PO Q4H PRN PRN Reason: AGITATION/ANXIETY - Discharge Plan Discharge Plan: Outpatient Follow Up
[2016-03-07] MEDS: Lithium Carbonate TAB* 300 MG PO SCH ×2 (09:50→20:47)
[2016-03-07] MEDS: Propranolol LA CAP* 80 MG PO SCH ×2 (09:50→20:47)
[2016-03-07] MEDS: Propylthiouracil TAB* 50 MG PO SCH ×4 (09:50→20:47)
--- NOTE | 2016-03-07 12:26 | PN ---
Subjective - Subjective Service Type: 32569 Hosp care 25 min moderate complexity Subjective: Tana reports that she is in a good mood and denies any psychosis or dangerous intent or plan. She reports she is confused by my attempt to explain the reasons for and other aspects of the treatment over objection petition that Dr Talamantes is filing. She asked if she can see Dr Mcnally. Objective - Appearance Appearance: Healthy Appearing Dysmorphic Features: No Hygiene: Normal Grooming: Fairly Well Kept - Behavior Psychomotor Activities: Abnormal-Increased Exhibits Abnormal Movement: No - Attitude and Relatedness Attitude and Relatedness: Psychotically Related Eye Contact: Fair - Speech Quality: Pressured Latencies: Short Quantity: Copious - Mood Patient's Decription of Mood: "Good" - Affect Observed Affect: Expansive Affect Consistent with: Euphoria - Thought Process Patient's Thought Process: Disorganized, Tangential Thought Content: No Passive Wish, No Suicidal Planning, No Homicidal Ideation, No Paranoid Ideation - Sensorium Experiencing Hallucinations: No, Sensorium is Clear Type of Hallucinations: Visual: No, Auditory: No, Command: No - Level of Consciousness Level of Consciousness: Agitated - moderately Orientation: Yes Orientated to Person - Impulse Control Impulse Control: Tenuous - Insight and Judgement Insight and Judgement: Impaired - Group Participation Particating in Group Activities: No - Medication Management Medication Management Adherence: Partial - refusing lithium Assessment - Assessment Merits Inpatient Hospitalization: For Immediate Safety, For Stabilization, To Initiate Treatment, For Ongoing Evaluation, For Discharge Planning, Pending Safe DC Plan Inpatient DSM-IV Dx: Bipolar and related disorder (Psychotic) due to another medical condition (hyperthyroidism). Clinical Impression: Tana Borden is a 35 y/o Malay woman admitted to this unit due to shamika and psychosis secondary to thyrotoxic storm. She refuses lithium, and remains manic and psychotic. She is followed by redye hand Dr Mcnally, who reports he will see her tomorrow and attempt to persuade her to take lithium, perhaps obviating the treatment over objection petition that is underway. She remains disorganized, but not threatening harm to self or others. Plan - Plan Treatment Plan: Name: TANA TEMPLE Birthdate: 1980 [id number] Encourage compliance with lithium and other meds. Monitor MS and safety. Groups may not be productive yet given her current disorganization. Treatment over objection paperwork being filed today. Will be seen by Dr Mcnally tomorrow per my conversation with him today. Medications: Current Medications Acetaminophen (Tylenol Tab*) 650 mg PO Q4H PRN PRN Reason: FEVER/PAIN [place] Carbonate ([place] Carbonate Tab*) 300 mg PO BID [facility] Last Admin: 03/07/16 09:50 Dose: Not Given Naproxen (Naprosyn Tab*) 500 mg PO BID PRN PRN Reason: FEVER/PAIN Propranolol HCl (Inderal La Cap*) 80 mg PO BID [facility] Last Admin: 03/07/16 09:50 Dose: 80 mg Propylthiouracil (Ptu Tab*) 225 mg PO QID [facility] Last Admin: 03/07/16 09:50 Dose: 225 mg Quetiapine Fumarate (Seroquel Tab*) 50 mg PO Q4H PRN PRN Reason: AGITATION/ANXIETY - Discharge Plan Discharge Plan: Outpatient Follow Up
[2016-03-08 07:50] LABS: Hematocrit 42 % (35-47); Hemoglobin 13.6 g/dl (12.0-16.0); Mean Corpuscular HGB Conc 33 g/dl (31-36); Mean Corpuscular Hemoglobin 26 pg (27-31); Mean Corpuscular Volume 81 fL (80-97); Mean Platelet Volume 8 um3 (7.4-10.4); Red Blood Count 5.15 10^6/ul (4.0-5.4); Red Cell Distribution Width 13 % (10.5-15); White Blood Count 5.6 10^3/ul (3.5-10.8)
[2016-03-08 08:06] LABS: Direct Bilirubin 0.1 mg/dL (0.03-0.18); Globulin 3.4 g/dL (2-4); Indirect Bilirubin 0.6 mg/dL (0.3-1.0); Total Bilirubin 0.7 mg/dL (0.2-1.0); Total Protein 7.4 g/dL (6.4-8.9)
[2016-03-08] MEDS: Lithium Carbonate TAB* 300 MG PO SCH ×2 (08:30→21:44)
[2016-03-08] MEDS: Propylthiouracil TAB* 50 MG PO SCH ×5 (08:31→21:45)
[2016-03-08] MEDS: Propranolol LA CAP* 80 MG PO SCH ×3 (08:31→21:58)
[2016-03-08 08:45] LABS: Free T3 5.7 pg/mL (2.5-3.9)
[2016-03-08 08:46] LABS: Free T4 3.9 ng/dL (0.61-1.12)
[2016-03-08 08:50] LABS: Total T3 1.46 ng/mL (0.87-1.78)
--- NOTE | 2016-03-08 10:22 | PN ---
Subjective - Subjective Reason for Note: Consultation Note History: She continues to have systematized delusions, but today she is less paranoid and seems grateful for her care. She feels some of the symptoms of hyperthyroidism are improving - tremor, heat intolerance, nail brittleness. Active Problems: Active Problems Vision changes (Acute) H53.9 pt c/o vision changes, but refuses to be examined. MRI orbits ordered. Will most likley be done on Thursday. Current Medications: Current Medications Acetaminophen (Tylenol Tab*) 650 mg PO Q4H PRN PRN Reason: FEVER/PAIN [place] Carbonate ([place] Carbonate Tab*) 300 mg PO BID COUNT INCLUDES THE [facility] Last Admin: 03/08/16 08:30 Dose: Not Given Naproxen (Naprosyn Tab*) 500 mg PO BID PRN PRN Reason: FEVER/PAIN Propranolol HCl (Inderal La Cap*) 80 mg PO BID COUNT INCLUDES THE [facility] Last Admin: 03/08/16 08:31 Dose: 80 mg Propylthiouracil (Ptu Tab*) 225 mg PO QID COUNT INCLUDES THE [facility] Last Admin: 03/08/16 08:31 Dose: 225 mg Quetiapine Fumarate (Seroquel Tab*) 50 mg PO Q4H PRN PRN Reason: AGITATION/ANXIETY Home Medications: Home Medications Medication Instructions Recorded Confirmed Type Naproxen TAB* [Naprosyn TAB*] 500 mg PO BID PRN 02/22/16 02/22/16 History Allergies: Allergies Allergy/AdvReac Type Severity Reaction Status Date / Time Methimazole Allergy Hives Verified 03/01/16 16:03 Objective - Vital Signs Vital Signs: Vital Signs 03/07/16 03/07/16 03/08/16 10:37 12:00 07:17 Temperature 97.9 F Pulse Rate 100 72 Respiratory 18 16 Rate Blood Pressure 106/60 (mmHg) O2 Sat by Pulse 100 Oximetry - Intake and Output Intake and Output: ADLs: Meal Record Start: 02/29/16 20: 17 Freq: Status: Active Created 02/29/16 20:17 System (Rec: 02/29/16 20:17 System [id number]) Results - Results Lab Results: Laboratory Results - last 24 hr 03/08/16 03/08/16 07:39 07:39 WBC 5.6 RBC 5.15 Hgb 13.6 Hct 42 MCV 81 MCH 26 L MCHC 33 RDW 13 Plt Count 273 MPV 8 Neut % (Auto) 50.8 Lymph % (Auto) 34.4 [place] % (Auto) 11.0 H Eos % (Auto) 3.1 Baso % (Auto) 0.7 Absolute Neuts (auto) 2.9 Absolute Lymphs (auto) 1.9 Absolute Monos (auto) 0.6 Absolute Eos (auto) 0.2 Absolute Basos (auto) 0 Absolute Nucleated RBC 0.02 Nucleated RBC % 0.3 Total Bilirubin 0.70 Direct Bilirubin 0.10 Indirect Bilirubin 0.6 AST 15 ALT 16 Alkaline Phosphatase 88 Total Protein 7.4 Albumin 4.0 Globulin 3.4 Albumin/Globulin Ratio 1.2 Free T4 3.90 H Free T3 5.70 H Total T3 1.46 Assessment - Problem List Assessment: Patient Problems Vision changes (Acute) DVT prophylaxis (Acute) Graves disease (Acute) Lakshmi (Acute) Thyroid storm (Acute) Plan: Her TFTs have not change on the current dose of PTU 4.5 tablets qid. She seems clinically a little improved. I discussed the following with the patient: * Henderson carbonate therapy - this is an antithyroid drug that was used for hyperthyroidism prior to the arrival of thiourea derivatives. I explained to the patient this is a separate indicate for the medication, which is now mostly used for bipolar affective disorder. She told me she would rather not take this medication * PTU - her lab work was not affected adversely - LFTs, CBC. I will therefore increase the dosage frequency to 5 times per day and then wait and see. I will recheck her TFTs, CBC, Diff and LFTs in 5 days She agrees with this management plan.
[2016-03-09] MEDS: Propylthiouracil TAB* 50 MG PO SCH ×5 (06:00→22:29)
[2016-03-09] MEDS: Propranolol LA CAP* 80 MG PO SCH ×2 (09:58→21:27)
[2016-03-09] MEDS: Lithium Carbonate TAB* 300 MG PO SCH ×2 (09:59→21:27)
[2016-03-10] MEDS: Propylthiouracil TAB* 50 MG PO SCH ×5 (06:00→20:19)
[2016-03-10] MEDS: Propranolol LA CAP* 80 MG PO SCH ×2 (09:30→20:21)
[2016-03-10] MEDS: Lithium Carbonate TAB* 300 MG PO SCH ×3 (09:30→20:19)
--- NOTE | 2016-03-10 13:04 | PN ---
Subjective - Subjective Service Type: 88538 Hosp care 15 min low complexity Subjective: Tana said "now I see you as one person!!...It was not 'double vision.'... I had a catholic version!!" She again says she refuses [place] and (incorrectly said Dr. Mcnally told her this weekend that it was okay." I spoke with Dr. Mcnally, he clarifies he has and continues to recommended for her and in their meetings. He supported court order process. Tana was working on serbian character writings on approach with a towel over her head. She said it was "catholic work." She answered some questions directly but when I said, in simple terms, the hospital will be arranging for a business services sales representative to hear the case and maybe order her to take medication, she responded with an unrelated topic. Objective - Appearance Appearance: Thin Framed Hygiene: Normal Grooming: Fairly Well Kept - Behavior Psychomotor Activities: Abnormal-Increased - Attitude and Relatedness Attitude and Relatedness: Psychotically Related Eye Contact: Good - Speech Quality: Pressured Latencies: Short Quantity: Copious - Mood Patient's Decription of Mood: "Anxious" - Affect Observed Affect: Expansive Affect Consistent with: Euthymia - Thought Process Patient's Thought Process: Over Inclusive - perseverative Assessment - Assessment Merits Inpatient Hospitalization: For Immediate Safety, For Stabilization, To Initiate Treatment, For Ongoing Evaluation, Pending Safe DC Plan Inpatient DSM-IV Dx: Bipolar and related disorder (Psychotic) due to another medical condition (hyperthyroidism). Clinical Impression: 35 y/o serbian female with possible history of PTSD and psychiatric admission, and reported prior suicidal behavior, and history of hyperthyroidism. She was admitted to psychiatry after treatment on the hospitalist medicine service due to psychosis and manic affective symptoms, apparently due to "Thyroid Storm." Continues impaired with psychosis (delusions, thought disorder), and manic affective features (pressured speech, hyperreligiosity, hypergraphia). Medical management is with consultation from Dr. Mcnally (appreciated) Farm Mortgage Agent question: Tana has asked for senior net developer architect in "Dorina" which may refer to a [place] dialect or be a related language to Carolyn, which her says she does not speak. Her Malian appears competent. We attempted contact with Language Line Farm Mortgage Agent ([employer]), but it did not support "Dorina," a marketing sales representative interviewed Tana and offered [place] dialect options, which she declined to hear. Complication is patient's refusal of indicated treatment/tests (refusing medication, refused MRI ). Given symptom/impairment severity, she requires continued care - and it is appropriate to seek Order for treatment over objectio (papers are filed with hat conditioner). Medication management: offering [place] Plan - Plan Treatment Plan: Name: TANA TEMPLE Birthdate: 1980 [id number] Continued Medication Management: Start Medication Medications: Current Medications Acetaminophen (Tylenol Tab*) 650 mg PO Q4H PRN PRN Reason: FEVER/PAIN [place] Carbonate ([place] Carbonate Tab*) 300 mg PO BID [facility] Last Admin: 03/10/16 09:30 Dose: Not Given Naproxen (Naprosyn Tab*) 500 mg PO BID PRN PRN Reason: FEVER/PAIN Propranolol HCl (Inderal La Cap*) 80 mg PO BID [facility] Last Admin: 03/10/16 09:30 Dose: 80 mg Propylthiouracil (Ptu Tab*) 225 mg PO FIVE TIMES DAILY [facility] Last Admin: 03/10/16 09:31 Dose: 225 mg Quetiapine Fumarate (Seroquel Tab*) 50 mg PO Q4H PRN PRN Reason: AGITATION/ANXIETY - Discharge Plan Discharge Plan: Outpatient Follow Up
[2016-03-11] MEDS: Propylthiouracil TAB* 50 MG PO SCH ×5 (05:36→21:47)
[2016-03-11] MEDS: Propranolol LA CAP* 80 MG PO SCH ×2 (09:57→21:47)
[2016-03-11] MEDS: Lithium Carbonate TAB* 300 MG PO SCH ×3 (09:57→21:49)
[2016-03-12] MEDS: Propylthiouracil TAB* 50 MG PO SCH ×5 (05:41→21:43)
[2016-03-12] MEDS: Lithium Carbonate TAB* 300 MG PO SCH ×4 (08:58→21:42)
[2016-03-12] MEDS: Propranolol LA CAP* 80 MG PO SCH ×2 (09:50→21:42)
--- NOTE | 2016-03-12 11:44 | PN ---
Subjective - Subjective Service Type: 10071 Hosp care 15 min low complexity Subjective: Tana said "I'm not well" citing pain and "rash" on her face. She may have had some minor flushing but a rash is not currently evident. She said [place] caused the rash and that she would "just stick with the PTU now." I let her know about other options with anti manic agents and she said [place] was actually more appealing. She attempted to avoid a decision on medicines, I reminder her that we submitted court paperwork and eventually might have a hearing on med's over objection. She asked we "take back the paperwork" but when I did not agree to that option she decided to try lithium again. Objective - Appearance Appearance: Thin Framed Hygiene: Normal Grooming: Fairly Well Kept - Behavior Psychomotor Activities: Abnormal-Decreased - Attitude and Relatedness Attitude and Relatedness: Psychotically Related Eye Contact: Good - Speech Quality: Pressured Latencies: Short Quantity: Copious - Mood Patient's Decription of Mood: "Good" - Affect Observed Affect: Tense Affect Consistent with: Euthymia - Thought Process Patient's Thought Process: Loose Associations, Over Inclusive Thought Content: No Passive Wish, No Suicidal Planning, No Homicidal Ideation, No Paranoid Ideation - Sensorium Experiencing Hallucinations: No, Sensorium is Clear - Level of Consciousness Level of Consciousness: Alert - Impulse Control Impulse Control: Intact - Insight and Judgement Insight and Judgement: Poor Assessment - Assessment Merits Inpatient Hospitalization: For Immediate Safety, For Stabilization, To Initiate Treatment, Pending Safe DC Plan Inpatient DSM-IV Dx: Bipolar and related disorder (Psychotic) due to another medical condition (hyperthyroidism). Clinical Impression: 35 y/o romanian female with possible history of PTSD and psychiatric admission, and reported prior suicidal behavior, and history of hyperthyroidism. She was admitted to psychiatry after treatment on the hospitalist medicine service due to psychosis and manic affective symptoms, apparently due to "Thyroid Storm." Tana continues symptomatic and mpaired with psychosis (delusions, thought disorder ), and manic affective features (pressured speech, hyperreligiosity, hypergraphia). Medical management is with consultation from Dr. Mcnally (appreciated ). Tana has asked for watchguard in "Dorina" which may refer to a Salvadorean dialect or be a related language to Carolyn, which her says she does not speak. Her Polish appears competent. We attempted contact with Language Line Junior Engineer ([employer]), but it did not support "Dorina," a fulfillment representative interviewed Tana and offered Salvadorean dialect options, which she declined to hear. Complication was patient's refusal of indicated treatment/tests (refusing medication, refused MRI ). Treatment over objection papers are filed but a hearing is on hold as Tana started [place] She complained of a rash and skin was noted pink by nursing. She reasonably opts to retry it now. Thebes has (generally benign) rash as a side effect. I discussed this (rechallenge) with Dr. Mcnally today and we are in agreement on it. Given symptom/impairment severity, Tana requires continued care. Medication management: offering [place] Plan - Plan Treatment Plan: Name: TANA TEMPLE Birthdate: 1980 [id number] Medications: Current Medications Acetaminophen (Tylenol Tab*) 650 mg PO Q4H PRN PRN Reason: FEVER/PAIN [place] Carbonate ([place] Carbonate Tab*) 300 mg PO TID [facility] Last Admin: 03/12/16 11:15 Dose: Not Given Naproxen (Naprosyn Tab*) 500 mg PO BID PRN PRN Reason: FEVER/PAIN Propranolol HCl (Inderal La Cap*) 80 mg PO BID [facility] Last Admin: 03/12/16 09:50 Dose: Not Given Propylthiouracil (Ptu Tab*) 225 mg PO FIVE TIMES DAILY [facility] Last Admin: 03/12/16 08:58 Dose: 225 mg Quetiapine Fumarate (Seroquel Tab*) 50 mg PO Q4H PRN PRN Reason: AGITATION/ANXIETY
[2016-03-12] MEDS ORDERED: diPHENhydraMINE PO* 50 MG PO PRN (12:06)
[2016-03-12] MEDS ORDERED: diPHENhydraMINE PO* 25 MG ONE (13:46)
[2016-03-12] MEDS: diPHENhydraMINE PO* 25 MG PO PRN ×3 (13:52→23:35)
[2016-03-13] MEDS: Propylthiouracil TAB* 50 MG PO SCH ×5 (06:20→22:28)
[2016-03-13] MEDS: diPHENhydraMINE PO* 25 MG PO PRN ×3 (06:20→23:40)
[2016-03-13 07:40] LABS: Hematocrit 41 % (35-47); Hemoglobin 13.5 g/dl (12.0-16.0); Mean Corpuscular HGB Conc 33 g/dl (31-36); Mean Corpuscular Hemoglobin 27 pg (27-31); Mean Corpuscular Volume 81 fL (80-97); Mean Platelet Volume 8 um3 (7.4-10.4); Red Cell Distribution Width 13 % (10.5-15); White Blood Count 5.9 10^3/ul (3.5-10.8)
[2016-03-13 07:50] LABS: Albumin 3.9 g/dL (3.2-5.2); Direct Bilirubin 0.1 mg/dL (0.03-0.18); Globulin 3.1 g/dL (2-4); Indirect Bilirubin 0.3 mg/dL (0.3-1.0); Total Bilirubin 0.4 mg/dL (0.2-1.0)
[2016-03-13 08:48] LABS: TSH (Thyroid Stimulating Horm) 0.06 mcIU/mL (0.34-5.60)
[2016-03-13 08:53] LABS: Free T3 4.4 pg/mL (2.5-3.9); Free T4 2.86 ng/dL (0.61-1.12)
[2016-03-13 08:57] LABS: Total T3 1.22 ng/mL (0.87-1.78)
--- NOTE | 2016-03-13 09:01 | PN ---
Subjective - Subjective Reason for Note: Consultation Note History: She developed hives - this responded to benedryl and has resolved. She is now taking lithium. She continues to show signs of psychosis, but is very cooperative and pleasant Active Problems: Active Problems Vision changes (Acute) H53.9 pt c/o vision changes, but refuses to be examined. MRI orbits ordered. Will most likley be done on Thursday. Current Medications: Current Medications Acetaminophen (Tylenol Tab*) 650 mg PO Q4H PRN PRN Reason: FEVER/PAIN Diphenhydramine HCl (Benadryl Po*) 25 mg PO Q4H PRN PRN Reason: ITCHING Last Admin: 03/13/16 06:20 Dose: 25 mg [place] Carbonate ([place] Carbonate Tab*) 300 mg PO TID [facility] Last Admin: 03/12/16 21:42 Dose: 300 mg Naproxen (Naprosyn Tab*) 500 mg PO BID PRN PRN Reason: FEVER/PAIN Propranolol HCl (Inderal La Cap*) 80 mg PO BID [facility] Last Admin: 03/12/16 21:42 Dose: 80 mg Propylthiouracil (Ptu Tab*) 225 mg PO FIVE TIMES DAILY [facility] Last Admin: 03/13/16 06:20 Dose: 225 mg Quetiapine Fumarate (Seroquel Tab*) 50 mg PO Q4H PRN PRN Reason: AGITATION/ANXIETY Home Medications: Home Medications Medication Instructions Recorded Confirmed Type Naproxen TAB* [Naprosyn TAB*] 500 mg PO BID PRN 02/22/16 02/22/16 History Allergies: Allergies Allergy/AdvReac Type Severity Reaction Status Date / Time Methimazole Allergy Hives Verified 03/01/16 16:03 Objective - Vital Signs Vital Signs: Vital Signs 03/12/16 03/12/16 03/12/16 12:54 13:52 15:52 Temperature Pulse Rate Respiratory 16 16 16 Rate Blood Pressure (mmHg) O2 Sat by Pulse Oximetry 03/12/16 03/12/16 03/12/16 16:36 17:52 19:35 Temperature Pulse Rate Respiratory 16 16 16 Rate Blood Pressure (mmHg) O2 Sat by Pulse Oximetry 03/12/16 03/13/16 03/13/16 23:35 01:35 06:20 Temperature Pulse Rate Respiratory 16 16 16 Rate Blood Pressure (mmHg) O2 Sat by Pulse Oximetry 03/13/16 03/13/16 07:14 08:20 Temperature 98.6 F Pulse Rate 80 Respiratory 16 16 Rate Blood Pressure 99/61 (mmHg) O2 Sat by Pulse 100 Oximetry - Intake and Output Intake and Output: Intake & Output 03/10/16 03/11/16 03/12/16 03/13/16 11:59 11:59 11:59 11:59 Weight 109 lb ADLs: Meal Record Start: 02/29/16 20: 17 Freq: Status: Active Created 02/29/16 20:17 System (Rec: 02/29/16 20:17 System [place] [id number]) Document 03/08/16 14:32 [id number] (Rec: 03/08/16 14:32 [id number] [place] [id number]) Results - Results Lab Results: Laboratory Results - last 24 hr 03/13/16 03/13/16 03/13/16 07:29 07:29 07:30 WBC 5.9 RBC 5.10 Hgb 13.5 Hct 41 MCV 81 MCH 27 MCHC 33 RDW 13 Plt Count 286 MPV 8 Neut % (Auto) 63.3 Lymph % (Auto) 28.0 [place] % (Auto) 7.5 Eos % (Auto) 0.9 Baso % (Auto) 0.3 Absolute Neuts (auto) 3.7 Absolute Lymphs (auto) 1.6 Absolute Monos (auto) 0.4 Absolute Eos (auto) 0.1 Absolute Basos (auto) 0 Absolute Nucleated RBC 0 Nucleated RBC % 0.1 Total Bilirubin 0.40 Direct Bilirubin 0.10 Indirect Bilirubin 0.3 AST 15 ALT 16 Alkaline Phosphatase 90 Total Protein 7.0 Albumin 3.9 Globulin 3.1 Albumin/Globulin Ratio 1.3 TSH 0.06 L Free T4 2.86 H Free T3 4.40 H Total T3 1.22 [place] < 0.10 L Assessment - Problem List Assessment: Patient Problems Vision changes (Acute) DVT prophylaxis (Acute) Graves disease (Acute) Lakshmi (Acute) Thyroid storm (Acute) Plan: Her thyroid function tests are coming down nicely this time. She has no abnormalities on her LFTs or CBC. She attributes her hives to lithium, but this may or may not be the case. She should remain on benadryl prn for this. I think we should continue her current therapeutic plan. She accepts lithium, though would like a lower dose - though her levels show that she requires further treatment at this dose to reach a therapeutic level for both her thyroid and her hypomania. I will recheck her TFTs in 5 days
[2016-03-13] MEDS: Lithium Carbonate TAB* 300 MG PO SCH ×3 (09:37→22:28)
[2016-03-13] MEDS: Propranolol LA CAP* 80 MG PO SCH ×2 (09:38→22:28)
[2016-03-13] MEDS ORDERED: Oral Rinse (Biotene)(NF) 237 ML ORAL RINSE BTL MT SCH (15:00)
[2016-03-14] MEDS: Propylthiouracil TAB* 50 MG PO SCH ×5 (06:30→22:05)
[2016-03-14] MEDS: Propranolol LA CAP* 80 MG PO SCH ×2 (10:42→22:04)
[2016-03-14] MEDS: Lithium Carbonate TAB* 300 MG PO SCH (10:43)
--- NOTE | 2016-03-14 13:26 | PN ---
Subjective - Subjective Service Type: [id number] Hosp care 15 min low complexity Subjective: Tana spoke with me non-stop. She was vigorously "praying" on approach, but was easily interrupted. She said skin condition is "better" - Benadryl helped. She was very appreciative saying she is "getting a lot of help here" and that " a doctor is like a god.... and men are treating me well here." She affirmed she will take all medicines as directed, including [place], and denied "cheeking pills" - I let her know her lithium level was unexpectedly undetectable and that we would provide liquid medicine - she agreed. Objective - Appearance Appearance: Thin Framed Hygiene: Normal Grooming: Fairly Well Kept - Behavior Psychomotor Activities: Abnormal-Increased - Attitude and Relatedness Attitude and Relatedness: Child Like Eye Contact: Good - Speech Quality: Pressured Latencies: Short Quantity: Copious - Mood Patient's Decription of Mood: "Great" - Affect Observed Affect: Expansive Affect Consistent with: Euphoria - Thought Process Patient's Thought Process: Loose Associations, Impoverished Thought Content: No Passive Wish, No Suicidal Planning, No Homicidal Ideation, No Paranoid Ideation - Sensorium Experiencing Hallucinations: No, Sensorium is Clear - Level of Consciousness Level of Consciousness: Alert - Impulse Control Impulse Control: Intact - Insight and Judgement Insight and Judgement: Poor Assessment - Assessment Merits Inpatient Hospitalization: For Immediate Safety, For Stabilization, To Initiate Treatment, For Ongoing Evaluation, Pending Safe DC Plan Inpatient DSM-IV Dx: Bipolar and related disorder (Psychotic) due to another medical condition (hyperthyroidism). Clinical Impression: 35 y/o paraguayan female with possible history of PTSD and psychiatric admission, and reported prior suicidal behavior, and history of hyperthyroidism. She was admitted to psychiatry after treatment on the hospitalist medicine service due to psychosis and manic affective symptoms, apparently due to "Thyroid Storm." Tana continues symptomatic and impaired with psychosis (delusions, thought disorder), and manic affective features (pressured speech, hyperreligiosity, hypergraphia). Medical management is with consultation from Dr. Mcnally ( appreciated). Tana asked for pressurised container filler in "Dorina" which may refer to a Cuban dialect or be a related language to Carolyn, which her says she does not speak. Her Kazakh appears competent. We attempted contact with Language Line Home Care Provider ([employer]), but it did not support "Dorina," a ocean import representative interviewed Tana and offered Cuban dialect options, which she declined to hear. Complication was patient's refusal of indicated treatment/tests (was refusing medication, refused MRI ). Treatment over objection papers are filed but a hearing is on hold as Tana started [place]. [place] level was undetectable 03/13, possibly suggesting "cheeking" medication - she is in agreement with liquid preparation use. She complained of a rash Dr. Mcnally evaluated her with hives - it is reasonable to continue [place]. Given symptom/impairment severity, Tana requires continued care. Medication management: [place] Plan - Plan Treatment Plan: Name: TANA TEMPLE Birthdate: 1980 [id number] Continued Medication Management: Start Medication Medications: Current Medications Acetaminophen (Tylenol Tab*) 650 mg PO Q4H PRN PRN Reason: FEVER/PAIN Diphenhydramine HCl (Benadryl Po*) 25 mg PO Q4H PRN PRN Reason: ITCHING Last Admin: 03/13/16 23:40 Dose: 25 mg [place] Citrate ([place] Liq*) 300 mg PO TID [facility] Multi-Ingredient Mouthwash/Gargle (Biotene Dry Mouth Oral Rinse(Nf)) 15 ml [place] . DIRECTED [facility] Naproxen (Naprosyn Tab*) 500 mg PO BID PRN PRN Reason: FEVER/PAIN Propranolol HCl (Inderal La Cap*) 80 mg PO BID [facility] Last Admin: 03/14/16 10:42 Dose: 80 mg Propylthiouracil (Ptu Tab*) 225 mg PO FIVE TIMES DAILY [facility] Last Admin: 03/14/16 10:42 Dose: 225 mg Quetiapine Fumarate (Seroquel Tab*) 50 mg PO Q4H PRN PRN Reason: AGITATION/ANXIETY - Discharge Plan Discharge Plan: Outpatient Follow Up
[2016-03-14] MEDS: Lithium LIQ* 300 MG/5 ML UDC PO SCH ×2 (15:46→22:04)
[2016-03-14] MEDS: diPHENhydraMINE PO* 25 MG PO PRN (16:44)
[2016-03-15] MEDS: Propylthiouracil TAB* 50 MG PO SCH ×5 (06:30→21:46)
[2016-03-15] MEDS: Propranolol LA CAP* 80 MG PO SCH ×2 (09:22→21:47)
[2016-03-15] MEDS: Lithium LIQ* 300 MG/5 ML UDC PO SCH ×3 (09:22→21:48)
[2016-03-16] MEDS: Propylthiouracil TAB* 50 MG PO SCH ×5 (07:32→20:38)
[2016-03-16] MEDS: Lithium LIQ* 300 MG/5 ML UDC PO SCH ×3 (10:02→20:35)
[2016-03-16] MEDS: Propranolol LA CAP* 80 MG PO SCH ×2 (10:02→20:35)
[2016-03-17] MEDS: Propylthiouracil TAB* 50 MG PO SCH ×5 (06:45→21:40)
[2016-03-17] MEDS: Propranolol LA CAP* 80 MG PO SCH ×2 (09:27→21:39)
[2016-03-17] MEDS: Lithium LIQ* 300 MG/5 ML UDC PO SCH ×3 (09:27→21:39)
--- NOTE | 2016-03-17 10:24 | PN ---
Subjective - Subjective Service Type: 41727 Hosp care 15 min low complexity Subjective: Tana expresses appreciation for care over and over. Said rash is improved, and that liquid lithium tastes bad but is more tolerable. Was hyperreligious: "the congregational is coming." Objective - Appearance Appearance: Thin Framed Hygiene: Normal Grooming: Disheveled - Behavior Psychomotor Activities: Abnormal-Increased - Attitude and Relatedness Attitude and Relatedness: Psychotically Related Eye Contact: Good - Speech Quality: Unpressured Latencies: Short Quantity: Copious - Mood Patient's Decription of Mood: "Great" - Affect Observed Affect: Expansive Affect Consistent with: Euphoria - Thought Process Patient's Thought Process: Disorganized, Over Inclusive Thought Content: No Passive Wish, No Suicidal Planning, No Homicidal Ideation, No Paranoid Ideation - Sensorium Experiencing Hallucinations: No, Sensorium is Clear - Level of Consciousness Level of Consciousness: Alert - Impulse Control Impulse Control: Tenuous - Insight and Judgement Insight and Judgement: Poor Assessment - Assessment Merits Inpatient Hospitalization: For Immediate Safety, For Stabilization, To Initiate Treatment, For Ongoing Evaluation, Pending Safe DC Plan Inpatient DSM-IV Dx: Bipolar and related disorder (Psychotic) due to another medical condition (hyperthyroidism). Clinical Impression: 35 y/o yi female with possible history of PTSD and psychiatric admission, and reported prior suicidal behavior, and history of hyperthyroidism. She was admitted to psychiatry after treatment on the hospitalist medicine service due to psychosis and manic affective symptoms, apparently due to "Thyroid Storm." 1. Manic psychosis: Tana continues symptomatic and impaired with psychosis ( delusions, thought disorder), and manic affective features (pressured speech, hyperreligiosity, hypergraphia). 2. Language: Tana asked for furnace room supervisor in "Dorina" which may refer to a Swedish dialect or be a related language to Carolyn, which her says she does not speak. Her Welsh appears competent. We attempted contact with Language Line Cdl Truck Driver ([employer]), but it did not support "Dorina," a freight representative interviewed Tana and offered Swedish dialect options, which she declined to hear. 3. Medication management: Complication was patient's refusal of indicated treatment/tests (was refusing medication, refused MRI ). Treatment over objection papers are filed but a hearing is on hold as Tana started [place]. [place] level was undetectable 03/13, possibly suggesting "cheeking" medication - she has been adherent with liquid preparation use. 4. Medical: Medical management is with consultation from Dr. Mcnally (appreciated) . She complained of a rash Dr. Mcnally evaluated her with hives - it is improved. Given symptom/impairment severity, Tana requires continued care. Medication management: [place] Plan - Plan Treatment Plan: Name: TANA TEMPLE Birthdate: 1980 [id number] Continued Medication Management: Start Medication Medications: Current Medications Acetaminophen (Tylenol Tab*) 650 mg PO Q4H PRN PRN Reason: FEVER/PAIN Diphenhydramine HCl (Benadryl Po*) 25 mg PO Q4H PRN PRN Reason: ITCHING Last Admin: 03/14/16 16:44 Dose: 25 mg [place] Citrate ([place] Liq*) 300 mg PO TID [facility] Last Admin: 03/17/16 09:27 Dose: 300 mg Multi-Ingredient Mouthwash/Gargle (Biotene Dry Mouth Oral Rinse(Nf)) 15 ml [place] . DIRECTED [facility] Naproxen (Naprosyn Tab*) 500 mg PO BID PRN PRN Reason: FEVER/PAIN Propranolol HCl (Inderal La Cap*) 80 mg PO BID [facility] Last Admin: 03/17/16 09:27 Dose: 80 mg Propylthiouracil (Ptu Tab*) 225 mg PO FIVE TIMES DAILY [facility] Last Admin: 03/17/16 10:17 Dose: 225 mg Quetiapine Fumarate (Seroquel Tab*) 50 mg PO Q4H PRN PRN Reason: AGITATION/ANXIETY - Discharge Plan Discharge Plan: Outpatient Follow Up
[2016-03-18] MEDS: Propylthiouracil TAB* 50 MG PO SCH ×5 (06:15→21:12)
[2016-03-18 09:04] LABS: Hematocrit 44 % (35-47); Hemoglobin 14.6 g/dl (12.0-16.0); Mean Corpuscular HGB Conc 33 g/dl (31-36); Mean Corpuscular Hemoglobin 27 pg (27-31); Mean Corpuscular Volume 82 fL (80-97); Mean Platelet Volume 7 um3 (7.4-10.4); Red Blood Count 5.38 10^6/ul (4.0-5.4); Red Cell Distribution Width 14 % (10.5-15); White Blood Count 7.4 10^3/ul (3.5-10.8)
[2016-03-18] MEDS: Propranolol LA CAP* 80 MG PO SCH ×2 (09:09→21:12)
[2016-03-18] MEDS: Lithium LIQ* 300 MG/5 ML UDC PO SCH ×3 (09:10→21:11)
[2016-03-18 09:21] LABS: Albumin 4.5 g/dL (3.2-5.2); Direct Bilirubin 0.1 mg/dL (0.03-0.18); Globulin 3.5 g/dL (2-4); Indirect Bilirubin 0.4 mg/dL (0.3-1.0); Total Bilirubin 0.5 mg/dL (0.2-1.0)
[2016-03-18 09:41] LABS: Lithium 0.31 mmol/L (0.6-1.2)
[2016-03-18 09:50] LABS: Free T4 1.65 ng/dL (0.61-1.12)
[2016-03-18 09:55] LABS: Total T3 1.06 ng/mL (0.87-1.78)
[2016-03-19] MEDS: Propylthiouracil TAB* 50 MG PO SCH ×5 (05:45→20:35)
[2016-03-19] MEDS: Propranolol LA CAP* 80 MG PO SCH ×2 (09:31→20:34)
[2016-03-19] MEDS: Lithium LIQ* 300 MG/5 ML UDC PO SCH ×2 (09:31→20:33)
--- NOTE | 2016-03-19 11:22 | PN ---
Subjective - Subjective Service Type: 87249 Hosp care 15 min low complexity Subjective: Tana was very intrusive, following me around and saying "you are like a god." She speaks in a pressured pattern and her topic shifts can't be easily followed. She expressed appreciation and said she cooperates with treatment. Objective - Appearance Appearance: Thin Framed Hygiene: Normal Grooming: Fairly Well Kept - Behavior Psychomotor Activities: Abnormal-Increased - Attitude and Relatedness Attitude and Relatedness: Regressed Eye Contact: Good - Speech Quality: Pressured Latencies: Short Quantity: Copious - Mood Patient's Decription of Mood: "Great" - Affect Observed Affect: Expansive Affect Consistent with: Euphoria - Thought Process Patient's Thought Process: Loose Associations Thought Content: No Passive Wish, No Suicidal Planning, No Homicidal Ideation, No Paranoid Ideation - Sensorium Experiencing Hallucinations: No, Sensorium is Clear - Level of Consciousness Level of Consciousness: Alert - Impulse Control Impulse Control: Tenuous - Insight and Judgement Insight and Judgement: Poor Assessment - Assessment Merits Inpatient Hospitalization: For Immediate Safety, For Stabilization, To Initiate Treatment, For Ongoing Evaluation, Pending Safe DC Plan Inpatient DSM-IV Dx: Bipolar and related disorder (Psychotic) due to another medical condition (hyperthyroidism). Clinical Impression: 35 y/o belgian female with possible history of PTSD and psychiatric admission, and reported prior suicidal behavior, and history of hyperthyroidism. She was admitted to psychiatry after treatment on the hospitalist medicine service due to psychosis and manic affective symptoms, apparently due to "Thyroid Storm." 1. Manic psychosis: Tana continues symptomatic and impaired with psychosis ( delusions, thought disorder), and manic affective features (pressured speech, hyperreligiosity, intrusiveness, impaired sleep, hypergraphia). 2. Language: Tana asked for mailhouse operator in "Dorina" which may refer to a Polish dialect or be a related language to Carolyn, which her says she does not speak. Her Algerian appears competent. We attempted contact with Language Line Histology Manager ([employer]), but it did not support "Dorina," a financial sales representative interviewed Tana and offered Polish dialect options, which she declined to hear. 3. Medication management: Initial complication was patient's refusal of psychiatric medicines. Treatment over objection papers are filed but a hearing is on hold as Tana started [place]. [place] level was undetectable 03/13, 0.31 on 03/18 (on 900mg / day). 4. Medical: Medical management is with consultation from Dr. Mcnally (appreciated) . She complained of a rash Dr. Mcnally evaluated her with hives - it is improved. Given symptom/impairment severity, Tana requires continued care. Medication management: [place] - titrating to effect, level, tolerability. Offering Seroquel adjunct. Plan - Plan Treatment Plan: Name: TANA TEMPLE Birthdate: 1980 [id number] Continued Medication Management: Start Medication Medications: Current Medications Acetaminophen (Tylenol Tab*) 650 mg PO Q4H PRN PRN Reason: FEVER/PAIN Diphenhydramine HCl (Benadryl Po*) 25 mg PO Q4H PRN PRN Reason: ITCHING Last Admin: 03/14/16 16:44 Dose: 25 mg [place] Citrate ([place] Liq*) 300 mg PO TID [facility] Last Admin: 03/19/16 09:31 Dose: 300 mg Multi-Ingredient Mouthwash/Gargle (Biotene Dry Mouth Oral Rinse(Nf)) 15 ml MT . DIRECTED [facility] Naproxen (Naprosyn Tab*) 500 mg PO BID PRN PRN Reason: FEVER/PAIN Propranolol HCl (Inderal La Cap*) 80 mg PO BID [facility] Last Admin: 03/19/16 09:31 Dose: 80 mg Propylthiouracil (Ptu Tab*) 225 mg PO FIVE TIMES DAILY [facility] Last Admin: 03/19/16 09:31 Dose: 225 mg Quetiapine Fumarate (Seroquel Tab*) 50 mg PO Q4H PRN PRN Reason: AGITATION/ANXIETY - Discharge Plan Discharge Plan: Outpatient Follow Up
[2016-03-19] MEDS: QUEtiapine TAB* 100 MG PO SCH (20:37)
[2016-03-20] MEDS: Propylthiouracil TAB* 50 MG PO SCH ×5 (06:00→21:10)
--- NOTE | 2016-03-20 07:50 | PN ---
Subjective - Subjective Reason for Note: Progress Note History: From the thyroid point of view she is feeling better. She is sleeping through the night, she has no palpitations/tachycardia. Her hands and feet remain sweaty. Her vision is also improved. She attributes diarrhea to her new dose of lithium. Active Problems: Active Problems Graves disease (Acute) E05.00 Lakshmi (Acute) F30.9 In setting of thyroid storm cont M[facility] eval, ant tx as per psychiatry Thyroid storm (Acute) E05.91 Appreciate extensive assistance from Dr. Mcnally c/w PTU and propranolol She continues to lack capacity . Thyroid values improving as outlined in Dr. Mcnally's note from today Vision changes (Acute) H53.9 pt c/o vision changes, but refuses to be examined. MRI orbits ordered. Will most likley be done on Thursday. Current Medications: Current Medications Acetaminophen (Tylenol Tab*) 650 mg PO Q4H PRN PRN Reason: FEVER/PAIN Diphenhydramine HCl (Benadryl Po*) 25 mg PO Q4H PRN PRN Reason: ITCHING Last Admin: 03/14/16 16:44 Dose: 25 mg [place] Citrate ([place] Liq*) 600 mg PO BID [facility] Last Admin: 03/19/16 20:33 Dose: 600 mg Multi-Ingredient Mouthwash/Gargle (Biotene Dry Mouth Oral Rinse(Nf)) 15 ml MT . DIRECTED [facility] Naproxen (Naprosyn Tab*) 500 mg PO BID PRN PRN Reason: FEVER/PAIN Propranolol HCl (Inderal La Cap*) 80 mg PO BID [facility] Last Admin: 03/19/16 20:34 Dose: 80 mg Propylthiouracil (Ptu Tab*) 225 mg PO FIVE TIMES DAILY [facility] Last Admin: 03/20/16 06:00 Dose: 225 mg Quetiapine Fumarate (Seroquel Tab*) 50 mg PO Q4H PRN PRN Reason: AGITATION/ANXIETY Quetiapine Fumarate (Seroquel Tab*) 100 mg PO BEDTIME [facility] Last Admin: 03/19/16 20:37 Dose: Not Given Home Medications: Home Medications Medication Instructions Recorded Confirmed Type Naproxen TAB* [Naprosyn TAB*] 500 mg PO BID PRN 02/22/16 02/22/16 History Allergies: Allergies Allergy/AdvReac Type Severity Reaction Status Date / Time Methimazole Allergy Hives Verified 03/01/16 16:03 Objective - Intake and Output Intake and Output: Intake & Output 03/17/16 03/18/16 03/19/16 03/20/16 11:59 11:59 11:59 11:59 Weight 112 lb ADLs: Meal Record Start: 02/29/16 20: 17 Freq: Status: Active Created 02/29/16 20:17 System (Rec: 02/29/16 20:17 System [facility]) Document 03/08/16 14:32 [id number] (Rec: 03/08/16 14:32 [id number] [id number]) Results - Results Lab Results: Laboratory Tests 03/18/16 08:47 Free T4 1.65 H Free T3 4.00 H Total T3 1.06 Assessment - Problem List Assessment: Patient Problems Graves disease (Acute) Lakshmi (Acute) Thyroid storm (Acute) Vision changes (Acute) Plan: Graves disease (Acute)Thyroid storm (Acute) Her hyperthyroidism is showing clear improvement both biochemically and symptomatically. I want to bring her TFTs to the reference range before I reduce the dose of PTU. I think, despite the low lithium levels, this has been synergistic in helping improve her hyperthyroidism - her TFTs started to drop rapidly when this was started. I plan to recheck her TFTs 02/22/2016 as well has LFTs, CBC. I note she has diarrhea. If this continues we should consider checking her LFTs/P3/CBC. Lakshmi (Acute) I reviewed Dr. Talamantes's note - she remains delusional, but her pressure of speech was less than at presentation Vision changes (Acute) She states this is improving I discussed the above with the patient.
[2016-03-20] MEDS: Lithium LIQ* 300 MG/5 ML UDC PO SCH ×2 (09:37→21:11)
[2016-03-20] MEDS: Propranolol LA CAP* 80 MG PO SCH ×2 (09:37→21:11)
[2016-03-20] MEDS: QUEtiapine TAB* 100 MG PO SCH (21:11)
[2016-03-21] MEDS: Propylthiouracil TAB* 50 MG PO SCH ×5 (06:10→21:06)
[2016-03-21] MEDS: Propranolol LA CAP* 80 MG PO SCH ×2 (09:23→21:05)
[2016-03-21] MEDS: Lithium LIQ* 300 MG/5 ML UDC PO SCH ×2 (09:23→21:05)
--- NOTE | 2016-03-21 14:26 | PN ---
Subjective - Subjective Service Type: 79351 Hosp care 15 min low complexity Subjective: Tana was appreciative. She agreed with plan to have her sit in milieu over medication administrations (I let her know our concern was that she had vomited) . She denied subjective symptoms or concerns. Objective - Appearance Appearance: Thin Framed Hygiene: Normal Grooming: Fairly Well Kept - Behavior Psychomotor Activities: Abnormal-Increased - Attitude and Relatedness Attitude and Relatedness: Psychotically Related Eye Contact: Good - Speech Quality: Pressured Latencies: Short Quantity: Copious - Mood Patient's Decription of Mood: "Good" - Affect Observed Affect: Expansive Affect Consistent with: Euphoria - Thought Process Patient's Thought Process: Over Inclusive Thought Content: No Passive Wish, No Suicidal Planning, No Homicidal Ideation, No Paranoid Ideation - Sensorium Experiencing Hallucinations: No, Sensorium is Clear - Level of Consciousness Level of Consciousness: Alert - Impulse Control Impulse Control: Tenuous - Insight and Judgement Insight and Judgement: Impaired Assessment - Assessment Merits Inpatient Hospitalization: For Immediate Safety, For Stabilization, To Initiate Treatment, For Ongoing Evaluation, Pending Safe DC Plan Inpatient DSM-IV Dx: Bipolar and related disorder (Psychotic) due to another medical condition (hyperthyroidism). Clinical Impression: 35 y/o indonesian female with possible history of PTSD and psychiatric admission, and reported prior suicidal behavior, and history of hyperthyroidism. She was admitted to psychiatry after treatment on the hospitalist medicine service due to psychosis and manic affective symptoms, apparently due to "Thyroid Storm." 1. Manic psychosis: Tana continues symptomatic and impaired with psychosis ( impaired reality testing, thought disorder), and manic affective features ( pressured speech, hyperreligiosity, intrusiveness, impaired sleep, hypergraphia) . 2. Language: Tana asked for component assembler supervisor in "Dorina" which may refer to a French dialect or be a related language to Carolyn, which her says she does not speak. Her Citizen [place] appears competent. We attempted contact with Language Line Neon Installer ([employer]), but it did not support "Dorina," a international representative interviewed Tana and offered French dialect options, which she declined to hear. 3. Medication management: Initial complication was patient's refusal of psychiatric medicines. Treatment over objection papers are filed but a hearing is on hold as Tana started [place]. [place] level was undetectable 03/13, 0.31 on 03/18 (on 900mg /day). [place] - titrating to effect, level, tolerability. Offering Seroquel adjunct. 4. Medical: Medical management is with consultation from Dr. Mcnally (appreciated) . She complained of a rash Dr. Mcnally evaluated her with hives - it is improved. Given symptom/impairment severity, Tana requires continued care. Plan - Plan Treatment Plan: Name: TANA TEMPLE Birthdate: 1980 [id number] Continued Medication Management: Start Medication Medications: Current Medications Acetaminophen (Tylenol Tab*) 650 mg PO Q4H PRN PRN Reason: FEVER/PAIN Diphenhydramine HCl (Benadryl Po*) 25 mg PO Q4H PRN PRN Reason: ITCHING Last Admin: 03/14/16 16:44 Dose: 25 mg [place] Citrate ([place] Liq*) 600 mg PO BID [facility] Last Admin: 03/21/16 09:23 Dose: 600 mg Multi-Ingredient Mouthwash/Gargle (Biotene Dry Mouth Oral Rinse(Nf)) 15 ml MT . DIRECTED [facility] Naproxen (Naprosyn Tab*) 500 mg PO BID PRN PRN Reason: FEVER/PAIN Propranolol HCl (Inderal La Cap*) 80 mg PO BID [facility] Last Admin: 03/21/16 09:23 Dose: 80 mg Propylthiouracil (Ptu Tab*) 225 mg PO FIVE TIMES DAILY [facility] Last Admin: 03/21/16 13:46 Dose: 225 mg Quetiapine Fumarate (Seroquel Tab*) 50 mg PO Q4H PRN PRN Reason: AGITATION/ANXIETY Quetiapine Fumarate (Seroquel Tab*) 100 mg PO BEDTIME [facility] Last Admin: 03/20/16 21:11 Dose: 100 mg - Discharge Plan Discharge Plan: Outpatient Follow Up
[2016-03-21] MEDS: QUEtiapine TAB* 100 MG PO SCH (21:06)
[2016-03-22] MEDS: Propylthiouracil TAB* 50 MG PO SCH ×5 (05:18→21:03)
[2016-03-22] MEDS: Propranolol LA CAP* 80 MG PO SCH ×2 (09:38→21:02)
[2016-03-22] MEDS: Lithium LIQ* 300 MG/5 ML UDC PO SCH ×2 (09:38→21:07)
[2016-03-22] MEDS: QUEtiapine TAB* 100 MG PO SCH (21:06)
[2016-03-23] MEDS: Propylthiouracil TAB* 50 MG PO SCH ×5 (06:21→21:03)
[2016-03-23] MEDS: Propranolol LA CAP* 80 MG PO SCH ×2 (09:33→21:03)
[2016-03-23] MEDS: Lithium LIQ* 300 MG/5 ML UDC PO SCH ×2 (09:33→21:05)
[2016-03-23] MEDS: QUEtiapine TAB* 100 MG PO SCH (21:05)
[2016-03-24] MEDS: Propylthiouracil TAB* 50 MG PO SCH ×5 (06:35→21:19)
[2016-03-24 08:21] LABS: Hematocrit 42 % (35-47); Mean Corpuscular HGB Conc 33 g/dl (31-36); Mean Corpuscular Hemoglobin 27 pg (27-31); Mean Corpuscular Volume 82 fL (80-97); Mean Platelet Volume 7 um3 (7.4-10.4); Red Blood Count 5.15 10^6/ul (4.0-5.4); Red Cell Distribution Width 16 % (10.5-15); White Blood Count 7.9 10^3/ul (3.5-10.8)
[2016-03-24 08:37] LABS: Albumin 4.3 g/dL (3.2-5.2); Direct Bilirubin 0.1 mg/dL (0.03-0.18); Globulin 3.6 g/dL (2-4); Indirect Bilirubin 0.5 mg/dL (0.3-1.0); Total Bilirubin 0.6 mg/dL (0.2-1.0); Total Protein 7.9 g/dL (6.4-8.9)
[2016-03-24] MEDS: Lithium LIQ* 300 MG/5 ML UDC PO SCH ×3 (08:48→21:18)
[2016-03-24] MEDS: Propranolol LA CAP* 80 MG PO SCH ×2 (08:48→21:19)
[2016-03-24 09:02] LABS: Lithium 0.42 mmol/L (0.6-1.2)
[2016-03-24 09:12] LABS: TSH (Thyroid Stimulating Horm) 0.42 mcIU/mL (0.34-5.60)
[2016-03-24 09:17] LABS: Free T3 3.6 pg/mL (2.5-3.9); Free T4 1.41 ng/dL (0.61-1.12)
[2016-03-24 09:21] LABS: Total T3 1.11 ng/mL (0.87-1.78)
--- NOTE | 2016-03-24 10:11 | PN ---
Subjective - Subjective Service Type: 32575 Hosp care 15 min low complexity Subjective: Tana said she will continue to refuse Seroquel, but agrees with lithium. She was demonstrably praying in the milieu on approach, stood very close, and spoke non stop. She said she would like to go home, but refuses to permit clinical information to be discussed with her , or her "uncles" who she said also were her "health care proxy." Objective - Appearance Appearance: Thin Framed Hygiene: Normal Grooming: Fairly Well Kept - Behavior Psychomotor Activities: Abnormal-Increased - Attitude and Relatedness Attitude and Relatedness: Psychotically Related Eye Contact: Good - Speech Quality: Pressured Latencies: Short Quantity: Copious - Mood Patient's Decription of Mood: "Good" - Affect Observed Affect: Expansive Affect Consistent with: Euthymia - Thought Process Patient's Thought Process: Loose Associations, Over Inclusive Thought Content: No Passive Wish, No Suicidal Planning, No Homicidal Ideation, No Paranoid Ideation - Sensorium Experiencing Hallucinations: No, Sensorium is Clear - Level of Consciousness Level of Consciousness: Alert - Impulse Control Impulse Control: Tenuous - Insight and Judgement Insight and Judgement: Poor Assessment - Assessment Merits Inpatient Hospitalization: For Immediate Safety, For Stabilization, To Initiate Treatment, For Ongoing Evaluation, Pending Safe DC Plan Inpatient DSM-IV Dx: Bipolar and related disorder (Psychotic) due to another medical condition (hyperthyroidism). Clinical Impression: 35 y/o hungarian female with possible history of PTSD and psychiatric admission, and reported prior suicidal behavior, and history of hyperthyroidism. She was admitted to psychiatry after treatment on the hospitalist medicine service due to psychosis and manic affective symptoms, apparently due to "Thyroid Storm." 1. Manic psychosis: Tana continues symptomatic and impaired with psychosis ( impaired reality testing, paranoid statements about the FBI, thought disorder), and manic affective features (pressured speech, hyperreligiosity, intrusiveness , hypergraphia). Sleep appears to have improved. 2. Language: Tana asked for plating technician in "Dorina" which may refer to a Botswanan dialect or be a related language to Carolyn, which her says she does not speak. Her Mongolian appears competent. We attempted contact with Language Line Audit Officer ([employer]), but it did not support "Dorina," a denial management representative interviewed Tana and offered B[place]an dialect options, which she declined to hear. 3. Medication management: Initial complication was patient's refusal of psychiatric medicines. Treatment over objection papers are filed but a hearing is on hold as Tana has accepted [place]. [place] level was undetectable 03/13, 0.31 on 03/18 (on 900mg /day), 0.42 on 03/24 ( on 1200mg/day). We are giving [place] - titrating to effect, level, tolerability. We were offering Seroquel adjunct but Tana refused it. Since sleep is intact now can continue [place] monotherapy. 4. Medical: Medical management is with consultation from Dr. Mcnally (appreciated) . She complained of a rash Dr. Mcnally evaluated her with hives - it is improved. Given symptom/impairment severity, Tana requires continued care. Plan - Plan Treatment Plan: Name: TANA TEMPLE Birthdate: 1980 [id number] Continued Medication Management: Start Medication Medications: Current Medications Acetaminophen (Tylenol Tab*) 650 mg PO Q4H PRN PRN Reason: FEVER/PAIN Diphenhydramine HCl (Benadryl Po*) 25 mg PO Q4H PRN PRN Reason: ITCHING Last Admin: 03/14/16 16:44 Dose: 25 mg [place] Citrate ([place] Liq*) 600 mg PO TID [facility] Multi-Ingredient Mouthwash/Gargle (Biotene Dry Mouth Oral Rinse(Nf)) 15 ml MT . DIRECTED [facility] Naproxen (Naprosyn Tab*) 500 mg PO BID PRN PRN Reason: FEVER/PAIN Propranolol HCl (Inderal La Cap*) 80 mg PO BID [facility] Last Admin: 03/24/16 08:48 Dose: 80 mg Propylthiouracil (Ptu Tab*) 225 mg PO FIVE TIMES DAILY [facility] Last Admin: 03/24/16 08:47 Dose: 225 mg Quetiapine Fumarate (Seroquel Tab*) 50 mg PO Q4H PRN PRN Reason: AGITATION/ANXIETY - Discharge Plan Discharge Plan: Outpatient Follow Up
[2016-03-25] MEDS: Propylthiouracil TAB* 50 MG PO SCH ×4 (06:00→21:08)
--- NOTE | 2016-03-25 08:28 | PN ---
Subjective - Subjective Reason for Note: Consultation Note History: Her symptoms of hyperthyroidism have abated. She has sweaty hands - though this is a chronic issue and may not relate to her thyroid status. Her weight is up 2 lbs. She has less loose stool and no tachycardia. She continues to have problems taking lithium carbonate - makes her nauseated. She continues to have delusional ideation with talk about FBI, terrorism and [place]. However, she is able to discuss her hyperthyroidism more rationally. 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 MRI orbits ordered. Will most likley be done on Thursday. Current Medications: Current Medications Acetaminophen (Tylenol Tab*) 650 mg PO Q4H PRN PRN Reason: FEVER/PAIN Diphenhydramine HCl (Benadryl Po*) 25 mg PO Q4H PRN PRN Reason: ITCHING Last Admin: 03/14/16 16:44 Dose: 25 mg [place] Citrate ([place] Liq*) 600 mg PO TID [facility] Last Admin: 03/24/16 21:18 Dose: 600 mg Multi-Ingredient Mouthwash/Gargle (Biotene Dry Mouth Oral Rinse(Nf)) 15 ml MT . DIRECTED [facility] Naproxen (Naprosyn Tab*) 500 mg PO BID PRN PRN Reason: FEVER/PAIN Propranolol HCl (Inderal La Cap*) 80 mg PO BID [facility] Last Admin: 03/24/16 21:19 Dose: 80 mg Propylthiouracil (Ptu Tab*) 225 mg PO FIVE TIMES DAILY [facility] Last Admin: 03/25/16 06:00 Dose: 225 mg Quetiapine Fumarate (Seroquel Tab*) 50 mg PO Q4H PRN PRN Reason: AGITATION/ANXIETY Home Medications: Home Medications Medication Instructions Recorded Confirmed Type Naproxen TAB* [Naprosyn TAB*] 500 mg PO BID PRN 02/22/16 02/22/16 History Allergies: Allergies Allergy/AdvReac Type Severity Reaction Status Date / Time Methimazole Allergy Hives Verified 03/01/16 16:03 Objective - Vital Signs Vital Signs: Vital Signs 03/24/16 03/25/16 10:55 07:21 Temperature 99.2 F Pulse Rate 71 Respiratory 16 16 Rate Blood Pressure 105/63 (mmHg) O2 Sat by Pulse 99 Oximetry - Intake and Output Intake and Output: ADLs: Meal Record Start: 02/29/16 20: 17 Freq: Status: Active Created 02/29/16 20:17 System (Rec: 02/29/16 20:17 System [id number] Document 03/08/16 14:32 [id number] (Rec: 03/08/16 14:32 [id number] [facility] [place] Results - Results Lab Results: Laboratory Results - last 24 hr 03/24/16 03/24/16 08:07 08:07 WBC 7.9 RBC 5.15 Hgb 14.0 Hct 42 MCV 82 MCH 27 MCHC 33 RDW 16 H Plt Count 344 MPV 7 L Neut % (Auto) 68.6 Lymph % (Auto) 21.1 L [place] % (Auto) 6.5 Eos % (Auto) 3.3 Baso % (Auto) 0.5 Absolute Neuts (auto) 5.4 Absolute Lymphs (auto) 1.7 Absolute Monos (auto) 0.5 Absolute Eos (auto) 0.3 Absolute Basos (auto) 0 Absolute Nucleated RBC 0 Nucleated RBC % 0 Total Bilirubin 0.60 Direct Bilirubin 0.10 Indirect Bilirubin 0.5 AST 14 ALT 20 Alkaline Phosphatase 124 H Total Protein 7.9 Albumin 4.3 Globulin 3.6 Albumin/Globulin Ratio 1.2 TSH 0.42 Free T4 1.41 H Free T3 3.60 Total T3 1.11 [place] 0.42 L Assessment - Problem List Assessment: Patient Problems Graves disease (Acute) Psychotic disorder with delusions due to known physiological condition (Acute) Vision changes (Chronic) Plan: Graves disease (Acute) She is biochemically euthyroid - the FT4 remains a little high likely because of the block of T4 to T3 conversion caused by PTU. Her TSH is increasing and this is a good sign. I think this is largely due to the synergistic effects of lithium and PTU - her TFTs rapidly corrected after the introduction of lithium even though the levels of this drug didn't enter the therapeutic range. I think that the therapeutic level for the thyroid is lower than that for the dose needed for effectiveness in hypomania. I found one recent case report that supported this*. I have explained the nature of synergy to the patient and the alatorre importance of maintaining her levels of lithium as this will spare her the high doses of PTU which may be toxic. I note her CBC, differential and LFTs remain normal. I will cut down the dose of PTU to 200 mg tid and recheck in 5 more days Psychotic disorder with delusions due to known physiological condition (Acute) Clearly, her psychosis is not resolved and although she seems calmer, this remains a barrier to her treatment for thyrotoxicosis - I wonder if we can sustain this outside the [facility]. She also talks about definitive surgery for her hyperthyroidism in [facility] - optimally this should be taken care of locally ( [place], [place], [place]) as soon as she is capable of providing informed consent. Vision changes (Chronic) She states this is improving *Case Rep Endocrinol. 2015;2015:328221. doi: 10.1155/2015/587498. Epub 2014Oct 22. [place] as an Alternative Option in Graves Thyrotoxicosis. Triston I1, Estefany ES1, Sen S1. Author information * Abstract A 66-year-old woman was admitted with signs and symptoms of Graves thyrotoxicosis. Biochemistry results were as follows: TSH was undetectable; FT4 was >6.99?ng/dL (0.7-1.8); FT3 was 18?pg/mL (3-5); TSI was 658% (0-139). Thyroid uptake and scan showed diffusely increased tracer uptake in the thyroid gland. The patient was started on methimazole 40?mg BID, but her LFTs elevated precipitously with features of fulminant hepatitis. Methimazole was determined to be the cause and was stopped. After weighing pros and cons, lithium was initiated to treat her persistent thyrotoxicosis. [place] 300?mg was given daily with a goal to maintain between 0.4 and 0.6. High dose Hydrocortisone and propranolol were also administered concomitantly. Free thyroid hormone levels decreased and the patient reached a biochemical and clinical euthyroid state in about 8 days. Though definitive SR was planned, the patient has been maintained on lithium for more than a month to control her hyperthyroidism. Trial removal of lithium results in reemergence of thyrotoxicosis within 24 hours. Patient was maintained on low dose lithium treatment with lithium level just below therapeutic range which was sufficient to maintain euthyroid state for more than a month. There were no signs of lithium toxicity within this time period. Conclusion. [place] has a unique physiologic profile and can be used to treat thyrotoxicosis when thionamides cannot be used while awaiting elective radioablation. [place] levels need to be monitored; however, levels even at subtherapeutic range may be sufficient to treat thyrotoxicosis.
[2016-03-25] MEDS: Lithium LIQ* 300 MG/5 ML UDC PO SCH ×3 (08:59→21:07)
[2016-03-25] MEDS: Propranolol LA CAP* 80 MG PO SCH ×2 (08:59→21:12)
[2016-03-26] MEDS: Lithium LIQ* 300 MG/5 ML UDC PO SCH ×3 (09:07→21:29)
[2016-03-26] MEDS: Propranolol LA CAP* 80 MG PO SCH ×2 (09:09→21:15)
[2016-03-26] MEDS: Propylthiouracil TAB* 50 MG PO SCH ×3 (09:09→21:29)
--- NOTE | 2016-03-26 11:51 | PN ---
Subjective - Subjective Service Type: 95630 Hosp care 15 min low complexity Subjective: Tana reported feeling tired, and asked if it's okay to catch up with sleep after meals if she feels like it. She made no delusional comments, agreed with present treatment, and (favorably) talked about taking [place] after discharge if needed. Objective - Appearance Appearance: Thin Framed Hygiene: Normal Grooming: Fairly Well Kept - Behavior Psychomotor Activities: Abnormal-Decreased - Attitude and Relatedness Attitude and Relatedness: Superficially Cooperative Eye Contact: Fair - Speech Quality: Unpressured Latencies: Normal Quantity: Appropriate - Mood Patient's Decription of Mood: "Okay" - Affect Observed Affect: Non-labile Affect Consistent with: Euthymia - Thought Process Patient's Thought Process: Over Inclusive Thought Content: No Passive Wish, No Suicidal Planning, No Homicidal Ideation, No Paranoid Ideation - Sensorium Experiencing Hallucinations: No, Sensorium is Clear - Level of Consciousness Level of Consciousness: Alert - Impulse Control Impulse Control: Intact - Insight and Judgement Insight and Judgement: Poor Assessment - Assessment Merits Inpatient Hospitalization: For Stabilization, To Initiate Treatment, For Ongoing Evaluation, Consolidate Improvements, For Discharge Planning Inpatient DSM-IV Dx: Bipolar and related disorder (Psychotic) due to another medical condition (hyperthyroidism). Clinical Impression: 35 y/o nigerian female with possible history of PTSD and psychiatric admission, and reported prior suicidal behavior, and history of hyperthyroidism. She was admitted to psychiatry after treatment on the hospitalist medicine service due to psychosis and manic affective symptoms, apparently due to "Thyroid Storm." 1. 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 She has been impaired with psychosis (impaired reality testing, paranoid statements about the FBI, thought disorder), and manic affective features ( pressured speech, hyperreligiosity, intrusiveness, hypergraphia). Sleep has improved, and manic affect attenuated. 2. Language: Tana asked for adjunct lecturer in "Dorina" which may refer to a British dialect or be a related language to Carolyn, which her says she does not speak. Her American appears competent. We attempted contact with Language Line Appliance Sales Associate (Marisa), but it did not support "Dorina," a business office representative interviewed Tana and offered British dialect options, which she declined to hear. 3. Medication management: Initial complication was patient's refusal of psychiatric medicines. Treatment over objection papers are filed but a hearing is on hold as Tana has accepted [place]. [place] level was undetectable 03/13, 0.31 on 03/18 (on 900mg /day), 0.42 on 03/24 ( on 1200mg/day). It has been relatively difficult to get patient's [place] level up. Dr. Mcnally noted that the level needed for Thyroid effect is probably lower than that needed to control Bipolar symptoms. We offered Seroquel adjunct but Tana refused it. Since sleep is intact now, and symptoms seem milder, can continue [place] monotherapy. 4. Medical: Medical management is with consultation from Dr. Mcnally (appreciated) . She complained of a rash Dr. Mcnally evaluated her with hives - it is improved. Given ongoing impairment due to symptoms, Tana requires continued care. Plan - Plan Treatment Plan: Name: TANA TEMPLE Birthdate: 1980 [id number] Continued Medication Management: Start Medication Medications: Current Medications Acetaminophen (Tylenol Tab*) 650 mg PO Q4H PRN PRN Reason: FEVER/PAIN Diphenhydramine HCl (Benadryl Po*) 25 mg PO Q4H PRN PRN Reason: ITCHING Last Admin: 03/14/16 16:44 Dose: 25 mg [place] Citrate ([place] Liq*) 600 mg PO TID [facility] Last Admin: 03/26/16 09:07 Dose: 600 mg Multi-Ingredient Mouthwash/Gargle (Biotene Dry Mouth Oral Rinse(Nf)) 15 ml MT . DIRECTED PENDING SALE TO [facility] Naproxen (Naprosyn Tab*) 500 mg PO BID PRN PRN Reason: FEVER/PAIN Propranolol HCl (Inderal La Cap*) 80 mg PO BID [facility] Last Admin: 03/26/16 09:09 Dose: 80 mg Propylthiouracil (Ptu Tab*) 200 mg PO TID [facility] Last Admin: 03/26/16 09:09 Dose: 200 mg Quetiapine Fumarate (Seroquel Tab*) 50 mg PO Q4H PRN PRN Reason: AGITATION/ANXIETY - Discharge Plan Discharge Plan: Outpatient Follow Up
[2016-03-27] MEDS: Propylthiouracil TAB* 50 MG PO SCH ×3 (09:21→21:06)
[2016-03-27] MEDS: Lithium LIQ* 300 MG/5 ML UDC PO SCH ×3 (09:22→21:08)
[2016-03-27] MEDS: Propranolol LA CAP* 80 MG PO SCH ×2 (09:23→21:07)
[2016-03-28] MEDS: Propylthiouracil TAB* 50 MG PO SCH ×3 (09:01→20:22)
[2016-03-28] MEDS: Propranolol LA CAP* 80 MG PO SCH ×2 (09:02→20:23)
[2016-03-28] MEDS: Lithium LIQ* 300 MG/5 ML UDC PO SCH ×3 (09:02→20:23)
--- NOTE | 2016-03-28 13:52 | PN ---
Subjective - Subjective Service Type: 94140 Hosp care 15 min low complexity Subjective: Tana expressed some ambivalence about taking medication. She also said she'd like to go "home to [facility]" Thursday. She said she has 2 children there, when I asked their ages, she gave birthdates. I checked with SW and treatment team, we aren't aware she has any children. Objective - Appearance Appearance: Thin Framed Hygiene: Normal Grooming: Fairly Well Kept - Behavior Psychomotor Activities: Normal - Attitude and Relatedness Attitude and Relatedness: Psychotically Related Eye Contact: Good - Speech Quality: Unpressured Latencies: Short Quantity: Appropriate - Mood Patient's Decription of Mood: "Okay" - Affect Observed Affect: Labile Affect Consistent with: Euthymia - Thought Process Patient's Thought Process: Loose Associations Thought Content: No Passive Wish, No Suicidal Planning, No Homicidal Ideation, No Paranoid Ideation - Sensorium Experiencing Hallucinations: No, Sensorium is Clear - Level of Consciousness Level of Consciousness: Alert - Impulse Control Impulse Control: Intact - Insight and Judgement Insight and Judgement: Impaired Assessment - Assessment Merits Inpatient Hospitalization: For Stabilization, To Initiate Treatment, For Ongoing Evaluation, Consolidate Improvements, For Discharge Planning Inpatient DSM-IV Dx: Bipolar and related disorder (Psychotic) due to another medical condition (hyperthyroidism). Clinical Impression: 35 y/o [place] female with possible history of PTSD and psychiatric admission, and reported prior suicidal behavior, and history of hyperthyroidism. She was admitted to psychiatry after treatment on the hospitalist medicine service due to psychosis and manic affective symptoms, apparently due to "Thyroid Storm." 1. 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 She has been impaired with psychosis (impaired reality testing, paranoid statements about the FBI, delusions of having kids?, thought disorder), and manic affective features (pressured speech, hyperreligiosity, intrusiveness, hypergraphia). Sleep has improved, and manic affect is definitely milder. 2. Language: Tana asked for rolling down machine operator in "Dorina" which may refer to a Mongolian dialect or be a related language to Carolyn, which her says she does not speak. Her Kinyarwanda appears competent. We attempted contact with Language Line Speeder Worker (Marisa), but it did not support "Dorina," a promotional representative interviewed Tana and offered Mongolian dialect options, which she declined to hear. 3. Medication management: Initial complication was patient's refusal of psychiatric medicines. Treatment over objection papers are filed but a hearing is on hold as Tana has accepted [place]. [place] level was undetectable 03/13, 0.31 on 03/18 (on 900mg /day), 0.42 on 03/24 ( on 1200mg/day). It has been relatively difficult to get patient's [place] level up. Dr. Mcnally noted that the level needed for Thyroid effect is probably lower than that needed to control Bipolar symptoms. We offered Seroquel adjunct but Tana refused it. Since sleep is intact now, and symptoms seem milder, can continue [place] monotherapy. 4. Medical: Medical management is with consultation from Dr. Mcnally (appreciated) . She complained of a rash Dr. Mcnally evaluated her with hives - it is improved. Given ongoing impairment due to symptoms, Tana requires continued care. Plan - Plan Treatment Plan: Name: TANA TEMPLE Birthdate: 1980 [id number] Continued Medication Management: Start Medication Medications: Current Medications Acetaminophen (Tylenol Tab*) 650 mg PO Q4H PRN PRN Reason: FEVER/PAIN Diphenhydramine HCl (Benadryl Po*) 25 mg PO Q4H PRN PRN Reason: ITCHING Last Admin: 03/14/16 16:44 Dose: 25 mg [place] Citrate ([place] Liq*) 600 mg PO TID [facility] Last Admin: 03/28/16 13:21 Dose: 600 mg Multi-Ingredient Mouthwash/Gargle (Biotene Dry Mouth Oral Rinse(Nf)) 15 ml MT . DIRECTED [facility] Naproxen (Naprosyn Tab*) 500 mg PO BID PRN PRN Reason: FEVER/PAIN Propranolol HCl (Inderal La Cap*) 80 mg PO BID [facility] Last Admin: 03/28/16 09:02 Dose: Not Given Propylthiouracil (Ptu Tab*) 200 mg PO TID [facility] Last Admin: 03/28/16 13:21 Dose: 200 mg Quetiapine Fumarate (Seroquel Tab*) 50 mg PO Q4H PRN PRN Reason: AGITATION/ANXIETY - Discharge Plan Discharge Plan: Outpatient Follow Up
[2016-03-29] MEDS: Lithium LIQ* 300 MG/5 ML UDC PO SCH ×3 (09:07→21:00)
[2016-03-29] MEDS: Propranolol LA CAP* 80 MG PO SCH ×2 (09:07→21:01)
[2016-03-29] MEDS: Propylthiouracil TAB* 50 MG PO SCH ×3 (09:08→20:51)
[2016-03-30] MEDS: Propylthiouracil TAB* 50 MG PO SCH ×3 (09:30→22:04)
[2016-03-30] MEDS: Lithium LIQ* 300 MG/5 ML UDC PO SCH ×3 (09:31→22:05)
[2016-03-30] MEDS: Propranolol LA CAP* 80 MG PO SCH ×2 (09:31→22:05)
[2016-03-31 09:42] LABS: Hematocrit 43 % (35-47); Hemoglobin 14.3 g/dl (12.0-16.0); Mean Corpuscular HGB Conc 33 g/dl (31-36); Mean Corpuscular Hemoglobin 28 pg (27-31); Mean Corpuscular Volume 83 fL (80-97); Mean Platelet Volume 8 um3 (7.4-10.4); Red Blood Count 5.21 10^6/ul (4.0-5.4); Red Cell Distribution Width 16 % (10.5-15); White Blood Count 7.5 10^3/ul (3.5-10.8)
[2016-03-31] MEDS: Lithium LIQ* 300 MG/5 ML UDC PO SCH ×3 (09:51→21:38)
[2016-03-31] MEDS: Propranolol LA CAP* 80 MG PO SCH ×2 (09:51→21:38)
[2016-03-31] MEDS: Propylthiouracil TAB* 50 MG PO SCH ×3 (09:51→21:37)
[2016-03-31 09:59] LABS: Anion Gap 6 mmol/L (2-11); BUN/Creatinine Ratio 18.2 (8-20); Blood Urea Nitrogen 10 mg/dL (6-24); CO2 Carbon Dioxide 24 mmol/L (22-32); Calcium 9.4 mg/dL (8.6-10.3); Chloride 104 mmol/L (101-111); EGFR African American 160.8 (>60); EGFR Non-African American 125.1 (>60); Glucose 101 mg/dL (70-100); Potassium 4.3 mmol/L (3.5-5.0); Sodium 134 mmol/L (133-145)
[2016-03-31 11:07] LABS: Lithium < 0.10 mmol/L (0.6-1.2)
[2016-03-31 11:25] LABS: Free T4 1.44 ng/dL (0.61-1.12)
[2016-03-31 11:26] LABS: Total T3 1.34 ng/mL (0.87-1.78)
--- NOTE | 2016-03-31 12:12 | PN ---
Subjective - Subjective Service Type: [id number] Hosp care 15 min low complexity Subjective: Tana was mostly dismissive of clinical conversation: "I need more food.... more tomatoes....talk to Inessa." When I inquired about [place] refusal she had no explanation, or apparent inclination to agree with recommended treatment. When I mentioned the hospital will then seek a court order for medicines her answer was: "do you have a court date." Objective - Appearance Appearance: Thin Framed Hygiene: Normal Grooming: Disheveled - Behavior Psychomotor Activities: Abnormal-Increased - Attitude and Relatedness Attitude and Relatedness: Psychotically Related Eye Contact: Good - Speech Quality: Unpressured Latencies: Short Quantity: Terse - Mood Patient's Decription of Mood: "Good" - Affect Observed Affect: Expansive Affect Consistent with: Euthymia - Thought Process Patient's Thought Process: Loose Associations Thought Content: No Passive Wish, No Suicidal Planning, No Homicidal Ideation, No Paranoid Ideation - Sensorium Experiencing Hallucinations: No, Sensorium is Clear - Level of Consciousness Level of Consciousness: Alert - Impulse Control Impulse Control: Intact - Insight and Judgement Insight and Judgement: Impaired Assessment - Assessment Merits Inpatient Hospitalization: For Immediate Safety, For Stabilization, To Initiate Treatment, For Ongoing Evaluation, Pending Safe DC Plan Inpatient DSM-IV Dx: Bipolar and related disorder (Psychotic) due to another medical condition (hyperthyroidism). Clinical Impression: 35 y/o montenegrin female with possible history of PTSD and psychiatric admission, and reported prior suicidal behavior, and history of hyperthyroidism. 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 She has been impaired with psychosis (impaired reality testing, paranoid statements, delusions of having kids?, thought disorder), and manic affective features (pressured speech , hyperreligiosity, intrusiveness, hypergraphia). Sleep has improved, and manic affect has seemed relatively milder. 2. Language: Tana asked for spanish interpreter/translator in "Dorina" which may refer to a Beninese dialect or be a related language to Carolyn, which her says she does not speak. Her Turkmen appears competent. We attempted contact with Language Line Support Service Tech (Marisa), but it did not support "Dorina," a community relations representative interviewed Tana and offered Beninese dialect options, which she declined to hear. 3. Medication management: a recurring complication is patient's refusal of psychiatric medicines. Treatment over objection papers are filed but a hearing has been on hold as Tana has accepted [place]. [place] level was undetectable 03/13, 0.31 on 03/18 (on 900mg /day), 0.42 on 03/24 ( on 1200mg/day). It has been relatively difficult to get patient's [place] level up. Dr. Mcnally noted that the level needed for Thyroid effect is probably lower than that needed to control Bipolar symptoms. We offered Seroquel adjunct but Tana refused it. Now she is refusing [place] as well - appropriate to seek hearing on treatment over objection. 4. Medical: Medical management is with consultation from Dr. Mcnally (appreciated) . She complained of a rash Dr. Mcnally evaluated her with hives - it is improved. Given ongoing impairment due to symptoms, Tana requires continued care. Plan - Plan Treatment Plan: Name: TANA TEMPLE Birthdate: 1980 [id number] Continued Medication Management: Start Medication Medications: Current Medications Acetaminophen (Tylenol Tab*) 650 mg PO Q4H PRN PRN Reason: FEVER/PAIN Diphenhydramine HCl (Benadryl Po*) 25 mg PO Q4H PRN PRN Reason: ITCHING Last Admin: 03/14/16 16:44 Dose: 25 mg [place] Citrate ([place] Liq*) 600 mg PO TID [facility] Last Admin: 03/31/16 09:51 Dose: Not Given Multi-Ingredient Mouthwash/Gargle (Biotene Dry Mouth Oral Rinse(Nf)) 15 ml MT . DIRECTED [facility] Naproxen (Naprosyn Tab*) 500 mg PO BID PRN PRN Reason: FEVER/PAIN Propranolol HCl (Inderal La Cap*) 80 mg PO BID [facility] Last Admin: 03/31/16 09:51 Dose: Not Given Propylthiouracil (Ptu Tab*) 200 mg PO TID [facility] Last Admin: 03/31/16 09:51 Dose: 200 mg Quetiapine Fumarate (Seroquel Tab*) 50 mg PO Q4H PRN PRN Reason: AGITATION/ANXIETY - Discharge Plan Discharge Plan: Outpatient Follow Up
[2016-04-01] MEDS: Propylthiouracil TAB* 50 MG PO SCH ×3 (08:59→20:58)
[2016-04-01] MEDS: Propranolol LA CAP* 80 MG PO SCH ×2 (09:00→21:00)
[2016-04-01] MEDS: Lithium LIQ* 300 MG/5 ML UDC PO SCH ×3 (09:00→20:59)
--- NOTE | 2016-04-01 11:45 | PN ---
[facility]: Group Therapy Note - Service Type Service Type: [id number] Group Psychotherapy - Cognitive Behavioral Group Therapy ( CBT):Patient presented in CBT programming as disorganized and disruptive in discussion and needed repeated redirection to attend to presented materials.
--- NOTE | 2016-04-02 08:42 | PN ---
Subjective - Subjective Reason for Note: Consultation Note History: Endocrinology: She has few hyperthyroid symptoms at present. She has some frequent defecation. She is gaining weight. She has no heat intolerance. She tells me she is having her menstrual period. She denies palpitations. She states she is taking her lithium and rationalizes her changes in lithium level. 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 MRI orbits ordered. Will most likley be done on Thursday. Current Medications: Current Medications Acetaminophen (Tylenol Tab*) 650 mg PO Q4H PRN PRN Reason: FEVER/PAIN Diphenhydramine HCl (Benadryl Po*) 25 mg PO Q4H PRN PRN Reason: ITCHING Last Admin: 03/14/16 16:44 Dose: 25 mg [place] Citrate ([place] Liq*) 600 mg PO TID [facility] Last Admin: 04/01/16 20:59 Dose: Not Given Multi-Ingredient Mouthwash/Gargle (Biotene Dry Mouth Oral Rinse(Nf)) 15 ml MT . DIRECTED [facility] Naproxen (Naprosyn Tab*) 500 mg PO BID PRN PRN Reason: FEVER/PAIN Propranolol HCl (Inderal La Cap*) 80 mg PO BID [facility] Last Admin: 04/01/16 21:00 Dose: Not Given Propylthiouracil (Ptu Tab*) 200 mg PO TID [facility] Last Admin: 04/01/16 20:58 Dose: 200 mg Quetiapine Fumarate (Seroquel Tab*) 50 mg PO Q4H PRN PRN Reason: AGITATION/ANXIETY Home Medications: Home Medications Medication Instructions Recorded Confirmed Type Naproxen TAB* [Naprosyn TAB*] 500 mg PO BID PRN 02/22/16 02/22/16 History Acetaminophen TAB* [Tylenol TAB*] 650 mg PO Q4H PRN #0 tab 02/29/16 Rx Propranolol LA CAP* [Inderal LA 80 mg PO BID cap.la 02/29/16 Rx CAP*] Propylthiouracil TAB* [Ptu TAB*] 200 mg PO QID tab 02/29/16 Rx QUEtiapine TAB* [Seroquel TAB*] 50 mg PO Q4H PRN #0 tab 02/29/16 Rx Allergies: Allergies Allergy/AdvReac Type Severity Reaction Status Date / Time Methimazole Allergy Hives Verified 03/01/16 16:03 Objective - Vital Signs Vital Signs: Vital Signs 04/02/16 08:17 Temperature 100.7 F Pulse Rate 116 Respiratory 16 Rate Blood Pressure 141/87 (mmHg) O2 Sat by Pulse 98 Oximetry - Intake and Output Intake and Output: ADLs: Meal Record Start: 02/29/16 20: 17 Freq: Status: Active Created 02/29/16 20:17 System (Rec: 02/29/16 20:17 System [facility] Document 03/08/16 14:32 [id number] (Rec: 03/08/16 14:32 [id number] [id number]) Results - Results Lab Results: Laboratory Tests 03/31/16 09:29 Sodium 134 Potassium 4.3 Chloride 104 Carbon Dioxide 24 Anion Gap 6 BUN 10 Creatinine 0.55 Est GFR ( Amer) 160.8 Est GFR (Non-Af Amer) 125.1 BUN/Creatinine Ratio 18.2 Glucose 101 H Calcium 9.4 TSH 0.50 Free T4 1.44 H Free T3 4.60 H Total T3 1.34 [place] < 0.10 L Assessment - Problem List Assessment: Patient Problems Graves disease (Acute) Psychotic disorder with delusions due to known physiological condition (Acute) Vision changes (Chronic) Plan: Her TSH is rising, but her T3 indices are slightly higher. I think that lithium helped a great deal with her hyperthyroidism, but that since has stopped the lower dose of PTU is just sufficient. I encouraged her to take lithium (she denies she has missed doses). She no longer requires propranolol. She is talking about having a thyroidectomy after a second opinion from her sanitary chemist in [place], Dr. Blanca. This is a new plan (she last wanted to have this performed in [facility]). I endorsed a subtotal thyroidectomy.
[2016-04-02] MEDS: Propylthiouracil TAB* 50 MG PO SCH ×3 (08:52→22:06)
[2016-04-02] MEDS: Lithium LIQ* 300 MG/5 ML UDC PO SCH ×3 (08:53→22:07)
[2016-04-03] MEDS: Lithium LIQ* 300 MG/5 ML UDC PO SCH ×3 (09:26→20:58)
[2016-04-03] MEDS: Propylthiouracil TAB* 50 MG PO SCH ×3 (09:26→20:57)
--- NOTE | 2016-04-03 11:28 | PN ---
Subjective - Subjective Service Type: 75044 Hosp care 15 min low complexity Subjective: Tnaa declined to get out of bed and refuses to talk about medication choices. I asked her if she would like to participate in the decision as to which antipsychotic she takes under her (new) court order and she changed the subject without responding and spoke about her menstrual period. Objective - Appearance Appearance: Thin Framed Hygiene: Normal Grooming: Disheveled - Behavior Psychomotor Activities: Abnormal-Decreased - Attitude and Relatedness Attitude and Relatedness: Dismissive Eye Contact: Fair - Speech Quality: Unpressured Latencies: Short Quantity: Terse - Mood Patient's Decription of Mood: "Fine" - Affect Observed Affect: Tense Affect Consistent with: Euthymia - Thought Process Patient's Thought Process: Loose Associations, Impoverished Thought Content: No Passive Wish, No Suicidal Planning, No Homicidal Ideation, No Paranoid Ideation - Sensorium Experiencing Hallucinations: No, Sensorium is Clear - Level of Consciousness Level of Consciousness: Alert - Impulse Control Impulse Control: Intact - Insight and Judgement Insight and Judgement: Poor Assessment - Assessment Merits Inpatient Hospitalization: For Immediate Safety, To Initiate Treatment, For Ongoing Evaluation Inpatient DSM-IV Dx: Bipolar and related disorder (Psychotic) due to another medical condition (hyperthyroidism). Clinical Impression: 35 y/o german female with possible history of PTSD and psychiatric admission, and reported prior suicidal behavior, and history of hyperthyroidism. 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 She has been impaired with psychosis (impaired reality testing, paranoid statements, delusions of having kids?, thought disorder), and manic affective features (pressured speech , hyperreligiosity, intrusiveness, hypergraphia). Sleep has improved, and manic affect has seemed relatively milder. 2. Language: Tana asked for refueling ramp supervisor in "Dorina" which may refer to a Cymraes dialect or be a related language to Carolyn, which her says she does not speak. Her Croatian appears competent. We attempted contact with Language Line Press Tender Smoke Signal (Marisa), but it did not support "Dorina," a patient service representative interviewed Tana and offered Cymraes dialect options, which she declined to hear. 3. Medication management: a recurring complication is patient's refusal of psychiatric medicines. Order for treatment over objection was granted 04/02. Regimen is Rochelle and Geodon, with Geodon injection by court order if PO formula is refused. 4. Medical: Medical management is with consultation from Dr. Mcnally (appreciated) . Given ongoing impairment due to symptoms, aTna requires continued care. Plan - Plan Treatment Plan: Name: TANA TEMPLE Birthdate: 1980 [id number] Continued Medication Management: Start Medication Medications: Current Medications Acetaminophen (Tylenol Tab*) 650 mg PO Q4H PRN PRN Reason: FEVER/PAIN Diphenhydramine HCl (Benadryl Po*) 25 mg PO Q4H PRN PRN Reason: ITCHING Last Admin: 03/14/16 16:44 Dose: 25 mg [place] Citrate ([place] Liq*) 600 mg PO TID [facility] Last Admin: 04/03/16 09:26 Dose: Not Given Multi-Ingredient Mouthwash/Gargle (Biotene Dry Mouth Oral Rinse(Nf)) 15 ml MT . DIRECTED [facility] Naproxen (Naprosyn Tab*) 500 mg PO BID PRN PRN Reason: FEVER/PAIN Propylthiouracil (Ptu Tab*) 200 mg PO TID [facility] Last Admin: 04/03/16 09:26 Dose: 200 mg Ziprasidone (Geodon (Generic) *) 40 mg PO DAILY [facility] - Discharge Plan Discharge Plan: Outpatient Follow Up
[2016-04-03] MEDS: Ziprasidone * 20 MG CAP (generic Geodon) PO SCH (13:15)
[2016-04-04] MEDS: Ziprasidone * 20 MG CAP (generic Geodon) PO SCH (09:24)
[2016-04-04] MEDS: Lithium LIQ* 300 MG/5 ML UDC PO SCH ×3 (09:24→20:39)
[2016-04-04] MEDS: Propylthiouracil TAB* 50 MG PO SCH ×3 (09:24→20:39)
--- NOTE | 2016-04-04 16:47 | PN ---
Subjective - Subjective Service Type: 96196 Hosp care 15 min low complexity Subjective: Tana today reports cough productive of blood. She remains in bed, looks ill. She denies any active psychiatric symptoms. Objective - Appearance Appearance: Well Developed/Nourished Dysmorphic Features: No Hygiene: Normal Grooming: Disheveled - Behavior Psychomotor Activities: Abnormal-Decreased Exhibits Abnormal Movement: No - Attitude and Relatedness Attitude and Relatedness: Psychotically Related Eye Contact: Good - Speech Quality: Unpressured Latencies: Normal Quantity: Appropriate - Mood Patient's Decription of Mood: "very tired" - Affect Observed Affect: Expansive Affect Consistent with: Euphoria - Thought Process Patient's Thought Process: Goal Directed Thought Content: No Passive Wish, No Suicidal Planning, No Homicidal Ideation, No Paranoid Ideation - Sensorium Experiencing Hallucinations: No, Sensorium is Clear Type of Hallucinations: Visual: No, Auditory: No, Command: No - Level of Consciousness Level of Consciousness: Alert Orientation: Yes Intact, Yes Orientated to Time, Yes Orientated to Place, Yes Orientated to Person - Impulse Control Impulse Control: Intact - Insight and Judgement Insight and Judgement: Impaired - Group Participation Particating in Group Activities: Yes - Medication Management Medication Management Adherence: Yes Assessment - Assessment Merits Inpatient Hospitalization: For Immediate Safety, For Stabilization, For Discharge Planning Inpatient DSM-IV Dx: Bipolar and related disorder (Psychotic) due to another medical condition (hyperthyroidism). Clinical Impression: Tana Borden is a 35 y/o Ethiopian woman admitted to this unit due to shamika and psychosis secondary to thyrotoxic storm. She is now compliant with lithium and seroquel, but still with signs of shamika and psychosis. Today she complains of a cough productive of blood. Plan - Plan Treatment Plan: Name: TANA TEMPLE Birthdate: 1980 [id number] Hospitalist consult underway for blood-productive cough. Encourage compliance with lithium and other meds. Monitor MS and safety. Groups may not be productive yet given her current disorganization. Treatment over objection paperwork being filed today. Medications: Current Medications Acetaminophen (Tylenol Tab*) 650 mg PO Q4H PRN PRN Reason: FEVER/PAIN Diphenhydramine HCl (Benadryl Po*) 25 mg PO Q4H PRN PRN Reason: ITCHING Last Admin: 03/14/16 16:44 Dose: 25 mg [place] Citrate ([place] Liq*) 600 mg PO TID [facility] Last Admin: 04/04/16 14:42 Dose: 600 mg Multi-Ingredient Mouthwash/Gargle (Biotene Dry Mouth Oral Rinse(Nf)) 15 ml MT . DIRECTED [facility] Naproxen (Naprosyn Tab*) 500 mg PO BID PRN PRN Reason: FEVER/PAIN Propylthiouracil (Ptu Tab*) 200 mg PO TID [facility] Last Admin: 04/04/16 14:40 Dose: 200 mg Ziprasidone (Geodon (Generic) *) 40 mg PO DAILY [facility] Last Admin: 04/04/16 09:24 Dose: 40 mg - Discharge Plan Discharge Plan: Outpatient Follow Up
--- NOTE | 2016-04-04 17:20 | RAD ---
INDICATION: Hemoptysis COMPARISON: February 22, 2016 TECHNIQUE: PA and lateral dual-energy views were obtained. FINDINGS: Bones/Soft Tissues: There are no acute bony findings. There is a minor scoliotic deformity Cardiomediastinal: The cardiomediastinal silhouette is normal. Lungs: There are no infiltrates. Pleura: There are no pleural effusions. Other: None IMPRESSION: NO ACTIVE DISEASE.
--- NOTE | 2016-04-04 17:49 | CONSULT ---
Subjective Date of Service: 04/04/16 Interval History: Consult requested due to fever and reported hemoptysis. 35 yo F with hx of hyperparathyroidism with recent medical admission for thyroid storm, PTSD and now on inpatient psych unit for acute shamika with psychotic features presents with fever, cough and mild hemoptysis. The patient states she was feeling well until this morning when she felt chills which have persisted throughout the day. She was documented as having a fever (temporal) of 102.4F. She reports she also developed a productive cough which contained blood. When asked to quantify she stated the sputum was like an egg and the blood was the yolk and the rest was green phlegm. She says she has continued to have a cough throughout the day but the blood is now only mild streaks in the sputum. She also reports a sore throat and some mild sinus tenderness. Denies chest pain, SOB, abdominal pain, N/V. Has not noticed any blood in stool but does not check, is having her period right now so is unsure about hematuria. She has been fatigued today and slept for a good part of the day missing breakfast and lunch but she did have dinner. She states she has had annual PPDs that have always been negative, the last of which was this past summer. Family History: Unchanged from Admission Social History: Unchanged from Admission Past Medical History: Unchanged from Admission Review of Systems - Review of Systems Constitutional Symptoms: Positive: Fever Negative: Night Sweats Dermatology: Positive: Normal HEENT: Positive: Normal Eyes: Positive: Normal Thyroid: Positive: Frequent Defecation Pulmonary: Positive: Cough, Sputum, Hemoptysis Cardiology: Positive: Normal Gastroenterology: Positive: Normal Genital - Urinary: Positive: Normal Genitourinay - Female: Positive: Menses Normal Endocrinology: Positive: Thyroid Problems Neurology: Positive: Normal Objective Active Medications: Acetaminophen (Tylenol Tab*) 650 mg PO Q4H PRN Diphenhydramine HCl (Benadryl Po*) 25 mg PO Q4H PRN [place] Citrate ([place] Liq*) 600 mg PO TID [facility] Multi-Ingredient Mouthwash/Gargle (Biotene Dry Mouth Oral Rinse(Nf)) 15 ml MT . DIRECTED [facility] Naproxen (Naprosyn Tab*) 500 mg PO BID PRN Propylthiouracil (Ptu Tab*) 200 mg PO TID [facility] Ziprasidone (Geodon (Generic) *) 40 mg PO DAILY [facility] Vital Signs 04/04/16 04/04/16 07:35 09:54 Temperature 102.4 F 98.8 F Pulse Rate 105 Respiratory 16 Rate Blood Pressure 115/67 (mmHg) O2 Sat by Pulse 98 Oximetry Oxygen Devices in Use Now: None Appearance: Young, F, sitting in bed in NAD Eyes: No Scleral Icterus Ears/Nose/Mouth/Throat: Mucous Membranes Moist, - - mild posterior OP erythema, maxiallary and frontal sinuses with mild TTP Neck: NL Appearance and Movements; NL JVP Respiratory: Symmetrical Chest Expansion and Respiratory Effort, Clear to Auscultation Cardiovascular: NL Sounds; No Murmurs; No JVD, - - Mild tachycardia Abdominal: NL Sounds; No Tenderness; No Distention Lymphatic: No Cervical Adenopathy Extremities: No Edema Skin: No Rash or Ulcers Neurological: - - Alert, oriented, no focal deficits Result Diagrams: 03/31/16 09:29 03/31/16 09:29 Assessment/Plan - Billing 35 yo F with thyroid storm and shamika s/p transfer to [facility] on 02/29/[address] [facility] tx, now with fever, productive cough and reported hemoptysis With constellation of symptoms, most concerned for possible infectious etiology , viral vs bacterial. Possibly bronchitis. Malignancy seems unlikely based on her age and risk factors. CXR unremarkable, will hold on sputum cx at this time. Check CBC, CMP, PT/INR, influenza swab, procalcitonin Check UA For now continue supportive therapy alone with prn tylenol for fever/pain, will start ABx if indicated TB seems unlikely, do not think we need to pursue further testing at this time If hemoptysis recurs or worsens can call Pulmonology to see if patient would benefit from bronchoscopy Dr. Mcnally continues to follow regarding patients hyperthyroidism, continues on PTU Seems more compliant with psych meds over the last days. Thank you for this consultation, will continue to follow
[2016-04-04 19:29] LABS: Hematocrit 44 % (35-47); Hemoglobin 14.7 g/dl (12.0-16.0); Mean Corpuscular HGB Conc 34 g/dl (31-36); Mean Corpuscular Hemoglobin 28 pg (27-31); Mean Corpuscular Volume 83 fL (80-97); Mean Platelet Volume 8 um3 (7.4-10.4); Red Blood Count 5.32 10^6/ul (4.0-5.4); Red Cell Distribution Width 16 % (10.5-15)
[2016-04-04 19:35] LABS: Albumin 4.3 g/dL (3.2-5.2); BUN/Creatinine Ratio 14.3 (8-20); Calcium 9.3 mg/dL (8.6-10.3); EGFR African American 137.5 (>60); EGFR Non-African American 106.9 (>60); Globulin 3.8 g/dL (2-4); Potassium 3.9 mmol/L (3.5-5.0); Total Bilirubin 0.3 mg/dL (0.2-1.0); Total Protein 8.1 g/dL (6.4-8.9)
--- NOTE | 2016-04-05 09:20 | PN ---
Subjective Date of Service: 04/05/16 Interval History: Patient reports feeling much improved today. No further chills, cough is still present but less productive and no blood noted. Less congested. No sore throat. Family History: Unchanged from Admission Social History: Unchanged from Admission Past Medical History: Unchanged from Admission Objective Active Medications: Acetaminophen (Tylenol Tab*) 650 mg PO Q4H PRN Diphenhydramine HCl (Benadryl Po*) 25 mg PO Q4H PRN [place] Citrate ([place] Liq*) 600 mg PO TID [facility] Multi-Ingredient Mouthwash/Gargle (Biotene Dry Mouth Oral Rinse(Nf)) 15 ml MT . DIRECTED [facility] Naproxen (Naprosyn Tab*) 500 mg PO BID PRN Propylthiouracil (Ptu Tab*) 200 mg PO TID [facility] Ziprasidone (Geodon (Generic) *) 40 mg PO DAILY [facility] Vital Signs 04/04/16 04/05/16 09:54 07:10 Temperature 98.8 F 98.6 F Pulse Rate 114 Respiratory 16 Rate Blood Pressure 112/71 (mmHg) O2 Sat by Pulse 100 Oximetry Oxygen Devices in Use Now: None Appearance: Young, F, sitting in bed in NAD Eyes: No Scleral Icterus Ears/Nose/Mouth/Throat: Mucous Membranes Moist, - - mild erythema in the posterior OP Neck: NL Appearance and Movements; NL JVP Respiratory: Symmetrical Chest Expansion and Respiratory Effort, Clear to Auscultation Cardiovascular: NL Sounds; No Murmurs; No JVD, RRR Abdominal: NL Sounds; No Tenderness; No Distention Lymphatic: No Cervical Adenopathy Extremities: No Edema Skin: No Rash or Ulcers Neurological: Alert and Oriented x 3 Result Diagrams: 04/04/16 19:13 04/04/16 19:13 Microbiology and Other Data: Microbiology 04/05/16 09:00 Influenza Types A,B Antigen ([facility]I) - Final Nasal Specimen received for Influenza A/B Molecular testing Assess/Plan/Problems-Billing 35 yo F with thyroid storm and shamika s/p transfer to [facility] on 02/29/16 to cont tx, now with fever, productive cough and reported hemoptysis Seems like viral etiology, improving Flu swab still pending as well as UA Continue supportive therapy alone with prn tylenol for fever/pain Will monitor additional results but will sign off at this time, please feel free to contact me with any further questions.
[2016-04-05] MEDS: Lithium LIQ* 300 MG/5 ML UDC PO SCH ×3 (09:44→21:10)
[2016-04-05] MEDS: Propylthiouracil TAB* 50 MG PO SCH ×3 (09:44→21:09)
[2016-04-05] MEDS: Ziprasidone * 20 MG CAP (generic Geodon) PO SCH (09:44)
[2016-04-05] MEDS: Oseltamivir CAP* 75 MG PO SCH ×2 (10:50→21:11)
[2016-04-05 18:06] LABS: Urine Bacteria Absent (Absent); Urine Bilirubin Negative (Negative); Urine Glucose Negative (Negative); Urine Nitrite Negative (Negative)
[2016-04-06] MEDS: Propylthiouracil TAB* 50 MG PO SCH ×3 (08:44→21:34)
[2016-04-06] MEDS: Ziprasidone * 20 MG CAP (generic Geodon) PO SCH (08:44)
[2016-04-06] MEDS: Lithium LIQ* 300 MG/5 ML UDC PO SCH ×3 (08:44→21:33)
[2016-04-06] MEDS: Oseltamivir CAP* 75 MG PO SCH ×2 (08:45→21:34)
[2016-04-07] MEDS: Lithium LIQ* 300 MG/5 ML UDC PO SCH ×3 (09:21→21:27)
[2016-04-07] MEDS: Propylthiouracil TAB* 50 MG PO SCH ×3 (09:21→21:28)
[2016-04-07] MEDS: Oseltamivir CAP* 75 MG PO SCH ×2 (09:22→21:28)
[2016-04-07] MEDS: Ziprasidone * 20 MG CAP (generic Geodon) PO SCH (09:23)
--- NOTE | 2016-04-07 11:53 | PN ---
Subjective - Subjective Service Type: 47889 Hosp care 15 min low complexity Subjective: Tana is seen in her room where she is currently quarantined due to influenza. She is oddly covered in a blanket, worn as a shawl and is fidgety and hyperverbal. "I'm going back to [facility] so that I can get some rest, yeah , some rest!" Objective - Appearance Appearance: Thin Framed Dysmorphic Features: No Hygiene: Normal Grooming: Fairly Well Kept - Behavior Psychomotor Activities: Abnormal-Increased Exhibits Abnormal Movement: No - Attitude and Relatedness Attitude and Relatedness: Psychotically Related Eye Contact: Poor - Speech Quality: Pressured Latencies: Short Quantity: Copious - Mood Patient's Decription of Mood: "Great" - Affect Observed Affect: Labile Affect Consistent with: Euphoria - Thought Process Patient's Thought Process: Filght of Ideas Thought Content: Yes Paranoid Ideation, No Passive Wish, No Suicidal Planning, No Homicidal Ideation - Sensorium Experiencing Hallucinations: No, Sensorium is Clear Type of Hallucinations: Visual: No, Auditory: No, Command: No - Level of Consciousness Level of Consciousness: Alert Orientation: Yes Intact, Yes Orientated to Time, Yes Orientated to Place, Yes Orientated to Person - Impulse Control Impulse Control: Poor - Insight and Judgement Insight and Judgement: Impaired - Group Participation Particating in Group Activities: No - Medication Management Medication Management Adherence: Yes Assessment - Assessment Merits Inpatient Hospitalization: For Immediate Safety, For Stabilization Inpatient DSM-IV Dx: Bipolar and related disorder (Psychotic) due to another medical condition (hyperthyroidism). Clinical Impression: 35 y.o. , female with a history of thyroid disease presents with acute shamika in the setting of so-called "thyroid storm." Plan - Plan Treatment Plan: Name: TANA TEMPLE Birthdate: 1980 [id number] Continue with court-mandated lithium and ziprasidone. Patient remains acutely manic and unable to care for herself. Will check routine lithium level, HgbA1c and lipid panel in AM. Continued Medication Management: Start Medication Medications: Current Medications Acetaminophen (Tylenol Tab*) 650 mg PO Q4H PRN PRN Reason: FEVER/PAIN Diphenhydramine HCl (Benadryl Po*) 25 mg PO Q4H PRN PRN Reason: ITCHING Last Admin: 03/14/16 16:44 Dose: 25 mg [place] Citrate ([place] Liq*) 600 mg PO TID [facility] Last Admin: 04/07/16 09:21 Dose: 600 mg Multi-Ingredient Mouthwash/Gargle (Biotene Dry Mouth Oral Rinse(Nf)) 15 ml MT . DIRECTED [facility] Naproxen (Naprosyn Tab*) 500 mg PO BID PRN PRN Reason: FEVER/PAIN Oseltamivir Phosphate (Tamiflu Cap*) 75 mg PO BID [facility] Stop: 04/09/16 21:01 Last Admin: 04/07/16 09:22 Dose: 75 mg Propylthiouracil (Ptu Tab*) 200 mg PO TID [facility] Last Admin: 04/07/16 09:21 Dose: 200 mg Ziprasidone (Geodon (Generic) *) 40 mg PO DAILY [facility] Last Admin: 04/07/16 09:23 Dose: 40 mg - Discharge Plan Discharge Plan: Inpatient Hospitalization
[2016-04-08 08:12] LABS: Cholesterol 186 mg/dL; HDL Cholesterol 46.6 mg/dL; LDL Cholesterol 117 mg/dL; Lithium < 0.10 mmol/L (0.6-1.2); Triglycerides 111 mg/dL
[2016-04-08] MEDS: Propylthiouracil TAB* 50 MG PO SCH ×3 (10:22→20:30)
[2016-04-08] MEDS: Lithium LIQ* 300 MG/5 ML UDC PO SCH ×3 (10:22→20:30)
[2016-04-08] MEDS: Oseltamivir CAP* 75 MG PO SCH ×2 (10:25→20:30)
[2016-04-08] MEDS: Ziprasidone * 20 MG CAP (generic Geodon) PO SCH (10:26)
[2016-04-09] MEDS: Oseltamivir CAP* 75 MG PO SCH ×2 (09:46→21:23)
[2016-04-09] MEDS: Ziprasidone * 20 MG CAP (generic Geodon) PO SCH (09:46)
[2016-04-09] MEDS: Propylthiouracil TAB* 50 MG PO SCH ×3 (09:54→21:23)
[2016-04-09] MEDS: Lithium LIQ* 300 MG/5 ML UDC PO SCH ×3 (09:54→21:33)
--- NOTE | 2016-04-09 13:50 | PN ---
Subjective - Subjective Service Type: 45779 Hosp care 15 min low complexity Subjective: Tana reports good mood, improved physical symptoms of flu. She denies dangerous intent or plan, and denies psychotic symptoms. She makes no requests of me. She says she is taking the lithium now, and can offer no explanation as to why she had a nondetectable level after having had a detectable level. Objective - Appearance Appearance: Well Developed/Nourished Dysmorphic Features: No Hygiene: Normal Grooming: Disheveled - Behavior Psychomotor Activities: Abnormal-Decreased Exhibits Abnormal Movement: No - Attitude and Relatedness Attitude and Relatedness: Cooperative Eye Contact: Fair - Speech Quality: Unpressured Latencies: Normal Quantity: Appropriate - Mood Patient's Decription of Mood: "Good" - Affect Observed Affect: Fair Affect Consistent with: Euthymia - Thought Process Patient's Thought Process: Coherent, Goal Directed Thought Content: No Passive Wish, No Suicidal Planning, No Homicidal Ideation, No Paranoid Ideation - Sensorium Experiencing Hallucinations: No, Sensorium is Clear Type of Hallucinations: Visual: No, Auditory: No, Command: No - Level of Consciousness Level of Consciousness: Alert Orientation: Yes Intact, Yes Orientated to Time, Yes Orientated to Place, Yes Orientated to Person - Impulse Control Impulse Control: Tenuous - Insight and Judgement Insight and Judgement: Poor - Group Participation Particating in Group Activities: No Group Participation Comments: has flu - Medication Management Medication Management Adherence: Yes Assessment - Assessment Merits Inpatient Hospitalization: For Immediate Safety, For Stabilization, For Discharge Planning Inpatient DSM-IV Dx: Bipolar and related disorder (Psychotic) due to another medical condition (hyperthyroidism). Clinical Impression: Tana Borden is a 35 y/o [place]ron[place] woman admitted to this unit due to shamika and psychosis secondary to thyrotoxic storm. She is now compliant with lithium and seroquel, but still with signs of shamika and psychosis. Today she complains of a cough productive of blood. 2..17 Remains isolated to room due to flu. Has no complaints today. Says she is taking lithium. Plan - Plan Treatment Plan: Name: TANA TEMPLE Birthdate: 1980 [id number] Encourage compliance with lithium and other meds. Monitor MS and safety. Groups may not be productive yet given her current disorganization, on isolation precautions for now due to flu. Treatment over objection in place. Medications: Current Medications Acetaminophen (Tylenol Tab*) 650 mg PO Q4H PRN PRN Reason: FEVER/PAIN Diphenhydramine HCl (Benadryl Po*) 25 mg PO Q4H PRN PRN Reason: ITCHING Last Admin: 03/14/16 16:44 Dose: 25 mg [place] Citrate ([place] Liq*) 600 mg PO TID [facility] Last Admin: 04/09/16 09:54 Dose: 600 mg Multi-Ingredient Mouthwash/Gargle (Biotene Dry Mouth Oral Rinse(Nf)) 15 ml MT . DIRECTED [facility] Naproxen (Naprosyn Tab*) 500 mg PO BID PRN PRN Reason: FEVER/PAIN Oseltamivir Phosphate (Tamiflu Cap*) 75 mg PO BID [facility] Stop: 04/09/16 21:01 Last Admin: 04/09/16 09:46 Dose: 75 mg Propylthiouracil (Ptu Tab*) 200 mg PO TID [facility] Last Admin: 04/09/16 09:54 Dose: 200 mg Ziprasidone (Geodon (Generic) *) 40 mg PO DAILY [facility] Last Admin: 04/09/16 09:46 Dose: 40 mg - Discharge Plan Discharge Plan: Outpatient Follow Up
[2016-04-10] MEDS: Ziprasidone * 20 MG CAP (generic Geodon) PO SCH (10:01)
[2016-04-10] MEDS: Lithium LIQ* 300 MG/5 ML UDC PO SCH ×3 (10:01→22:00)
[2016-04-10] MEDS: Propylthiouracil TAB* 50 MG PO SCH ×3 (10:01→22:00)
[2016-04-11] MEDS: Propylthiouracil TAB* 50 MG PO SCH ×4 (10:08→21:29)
[2016-04-11] MEDS: Ziprasidone * 20 MG CAP (generic Geodon) PO SCH (10:08)
[2016-04-11] MEDS: Lithium LIQ* 300 MG/5 ML UDC PO SCH ×4 (10:09→21:29)
[2016-04-11 10:47] LABS: TSH (Thyroid Stimulating Horm) 0.1 mcIU/mL (0.34-5.60)
[2016-04-11 10:50] LABS: Lithium 0.33 mmol/L (0.6-1.2)
[2016-04-11 10:52] LABS: Free T3 4.5 pg/mL (2.5-3.9)
[2016-04-11 10:53] LABS: Free T4 1.82 ng/dL (0.61-1.12)
[2016-04-11 11:00] LABS: Total T3 1.54 ng/mL (0.87-1.78)
--- NOTE | 2016-04-11 11:46 | PN ---
Subjective - Subjective Service Type: 23008 Hosp care 15 min low complexity Subjective: Tana reports vomiting up green substance, not after taking lithium: thinks she is keeping down lithium. Level returned today at 0.33. Has been cleared to leave room with concerns re infectiousness with flu addressed by infectious disease. Objective - Appearance Appearance: Well Developed/Nourished Dysmorphic Features: No Hygiene: Normal Grooming: Fairly Well Kept - has resumed wearing head scarf - Behavior Psychomotor Activities: Normal Exhibits Abnormal Movement: No - Attitude and Relatedness Attitude and Relatedness: Cooperative Eye Contact: Good - Speech Quality: Unpressured Latencies: Normal Quantity: Appropriate - Mood Patient's Decription of Mood: "Good" - Affect Observed Affect: Constricted Affect Consistent with: Euthymia - Thought Process Patient's Thought Process: Coherent, Goal Directed, Disorganized - still mildly to moderately, but improved Thought Content: No Passive Wish, No Suicidal Planning, No Homicidal Ideation, No Paranoid Ideation - Sensorium Experiencing Hallucinations: No, Sensorium is Clear Type of Hallucinations: Visual: No, Auditory: No, Command: No - Level of Consciousness Level of Consciousness: Alert Orientation: Yes Intact, Yes Orientated to Time, Yes Orientated to Place, Yes Orientated to Person - Impulse Control Impulse Control: Tenuous - Insight and Judgement Insight and Judgement: Poor - Group Participation Particating in Group Activities: No Group Participation Comments: but can resume now that she has been cleared to leave her room by infectious disease - Medication Management Medication Management Adherence: Yes - now with rising Li level, at 0.33 this morning up from <0.1 Assessment - Assessment Merits Inpatient Hospitalization: For Immediate Safety, For Stabilization, For Discharge Planning, Pending Safe DC Plan Inpatient DSM-IV Dx: Bipolar and related disorder (Psychotic) due to another medical condition (hyperthyroidism). Clinical Impression: Tana Borden is a 35 y/o [place]ij[place] woman admitted to this unit due to shamika and psychosis secondary to thyrotoxic storm. She is now compliant with lithium and seroquel, but still with signs of shamika and psychosis. Today she complains of a cough productive of blood. 04.09.16 Remains isolated to room due to flu. Has no complaints today. Says she is taking lithium. 04.11.16 Recovered from flu. Complains today of vomiting green substance. Otherwise no physical or psychiatric complaints. Has recovered from flu, denies any further hemoptysis. Mild uptick in thyroid indices obtained with draw for lithium today, which is subtherapeutic at 0.33. Called Dr Mcnally, left message on his VMx asking his opinion re status of recovery from thyrotoxic storm. As she has been sick and may have been vomiting up doses, will hold at 1800 mg total daily lithium dose and recheck level on Thursday. Nursing report is of no acute changes, not wearing head scarf while they were observing her ( was wearing improvised head scarf when I met with her). She remains pleasant if mildly to moderately intrusive with continued signs of shamika, though milder and better organized now. Plan - Plan Treatment Plan: Name: TANA TEMPLE Birthdate: 1980 [id number] Encourage compliance with lithium and other meds and monitor for post-lithium administration emesis. Monitor MS and safety. Can try attending groups again. Treatment over objection in place. Medications: Current Medications Acetaminophen (Tylenol Tab*) 650 mg PO Q4H PRN PRN Reason: FEVER/PAIN Diphenhydramine HCl (Benadryl Po*) 25 mg PO Q4H PRN PRN Reason: ITCHING Last Admin: 03/14/16 16:44 Dose: 25 mg [place] Citrate ([place] Liq*) 600 mg PO TID [facility] Last Admin: 04/11/16 10:09 Dose: 600 mg Multi-Ingredient Mouthwash/Gargle (Biotene Dry Mouth Oral Rinse(Nf)) 15 ml MT . DIRECTED [facility] Naproxen (Naprosyn Tab*) 500 mg PO BID PRN PRN Reason: FEVER/PAIN Propylthiouracil (Ptu Tab*) 200 mg PO TID [facility] Last Admin: 04/11/16 10:08 Dose: 200 mg Ziprasidone (Geodon (Generic) *) 40 mg PO DAILY [facility] Last Admin: 04/11/16 10:08 Dose: 40 mg - Discharge Plan Discharge Plan: Outpatient Follow Up
[2016-04-12] MEDS: Propylthiouracil TAB* 50 MG PO SCH ×3 (08:49→21:27)
[2016-04-12] MEDS: Ziprasidone * 20 MG CAP (generic Geodon) PO SCH (08:49)
[2016-04-12] MEDS: Lithium LIQ* 300 MG/5 ML UDC PO SCH ×3 (08:51→21:28)
[2016-04-13] MEDS: Propylthiouracil TAB* 50 MG PO SCH ×3 (08:35→20:11)
[2016-04-13] MEDS: Ziprasidone * 20 MG CAP (generic Geodon) PO SCH (08:35)
[2016-04-13] MEDS: Lithium LIQ* 300 MG/5 ML UDC PO SCH ×3 (08:36→20:11)
--- NOTE | 2016-04-14 07:58 | PN ---
Progress Note - Progress Note Note: I met with Tana Mancilla. She is feeling fatigued - though she just woke up. She attributes this to her pharmacology. She is concerned her TFTs are up and down. She has no tachycardia and no other symptoms at present of hyperthyroidism Selected Entries 04/13/16 07:42 Temperature 98.6 F Pulse Rate 62 Respiratory 16 Rate Blood Pressure 97/54 (mmHg) Blood Pressure 63 Mean O2 Sat by Pulse 100 Oximetry Investigations: Laboratory Tests 04/11/16 04/14/16 09:53 06:34 TSH 0.10 L Free T4 1.82 H Free T3 4.50 H Total T3 1.54 Mayer 0.33 L 1.12 A/P Her TFTs show no clear trend. I decided not to increase her dose of PTU as her lithium level on 04/11/16 was subtherapeutic. I anticipate her TFTs may improve with the lithium level being in the therapeutic range for bipolar affective disorder. I recommend repeating her TFTs 04/19/2016. I discussed surgical management of her Graves' disease. She is willing to go ahead with this, but understands that this will need to wait until her psychiatric state is stabilized.
[2016-04-14] MEDS: Ziprasidone * 20 MG CAP (generic Geodon) PO SCH (10:15)
[2016-04-14] MEDS: Propylthiouracil TAB* 50 MG PO SCH ×3 (10:15→20:59)
[2016-04-14] MEDS: Lithium LIQ* 300 MG/5 ML UDC PO SCH ×3 (10:19→21:55)
--- NOTE | 2016-04-14 17:38 | PN ---
Subjective - Subjective Service Type: [id number] Hosp care 15 min low complexity Subjective: Tana reports with bright affect doing well here. She remains psychotic with thoughts of children she does not have in [facility], for example. Objective - Appearance Appearance: Well Developed/Nourished Dysmorphic Features: No Hygiene: Normal Grooming: Fairly Well Kept - Behavior Psychomotor Activities: Abnormal-Increased Exhibits Abnormal Movement: No - Attitude and Relatedness Attitude and Relatedness: Cooperative Eye Contact: Good - Speech Quality: Pressured Latencies: Normal Quantity: Appropriate - Mood Patient's Decription of Mood: "Great" - Affect Observed Affect: Constricted Affect Consistent with: Euphoria - Thought Process Patient's Thought Process: Coherent, Goal Directed Thought Content: No Passive Wish, No Suicidal Planning, No Homicidal Ideation, No Paranoid Ideation - Sensorium Experiencing Hallucinations: No, Sensorium is Clear Type of Hallucinations: Visual: No, Auditory: No, Command: No - Level of Consciousness Level of Consciousness: Alert Orientation: Yes Intact, Yes Orientated to Time, Yes Orientated to Place, Yes Orientated to Person - Impulse Control Impulse Control: Intact - Insight and Judgement Insight and Judgement: Impaired - Group Participation Particating in Group Activities: Yes - Medication Management Medication Management Adherence: Yes Assessment - Assessment Merits Inpatient Hospitalization: For Immediate Safety, For Stabilization, For Ongoing Evaluation, For Discharge Planning Inpatient DSM-IV Dx: Bipolar and related disorder (Psychotic) due to another medical condition (hyperthyroidism). Clinical Impression: Tana Borden is a 35 y/o [place] woman admitted to this unit due to shamika and psychosis secondary to thyrotoxic storm. She is now compliant with lithium and seroquel, but still with signs of shamika and psychosis. Today she complains of a cough productive of blood. 04.09. Remains isolated to room due to flu. Has no complaints today. Says she is taking lithium. 04.11. Recovered from flu. Complains today of vomiting green substance. Otherwise no physical or psychiatric complaints. Has recovered from flu, denies any further hemoptysis. Mild uptick in thyroid indices obtained with draw for lithium today, which is subtherapeutic at 0.33. Called Dr Mcnally, left message on his VMx asking his opinion re status of recovery from thyrotoxic storm. As she has been sick and may have been vomiting up doses, will hold at 1800 mg total daily lithium dose and recheck level on Thursday. Nursing report is of no acute changes, not wearing head scarf while they were observing her ( was wearing improvised head scarf when I met with her). She remains pleasant if mildly to moderately intrusive with continued signs of shamika, though milder and better organized now. 04.14.16 Remains manic and psychotic. Had achieved therapeutic lithium level, but refused last [address] Mcnally following re thyrotoxic storm, appreciate note indicating nothing to do per latest labs. Plan - Plan Treatment Plan: Name: TANA TEMPLE Birthdate: 1980 [id number] Encourage compliance with lithium and other meds and monitor for post-lithium administration emesis. May need to adjust dose down if level remains high end or therapeutic range, perhaps reflecting resuming compliance or tolerability without emesis leading to higher than desirable dosing. Monitor MS and safety. Attending groups again. Treatment over objection in place. Medications: Current Medications Acetaminophen (Tylenol Tab*) 650 mg PO Q4H PRN PRN Reason: FEVER/PAIN Diphenhydramine HCl (Benadryl Po*) 25 mg PO Q4H PRN PRN Reason: ITCHING Last Admin: 03/14/16 16:44 Dose: 25 mg [place] Citrate ([place] Liq*) 600 mg PO TID [facility] Last Admin: 04/14/16 14:04 Dose: Not Given Multi-Ingredient Mouthwash/Gargle (Biotene Dry Mouth Oral Rinse(Nf)) 15 ml MT . DIRECTED [facility] Naproxen (Naprosyn Tab*) 500 mg PO BID PRN PRN Reason: FEVER/PAIN Propylthiouracil (Ptu Tab*) 200 mg PO TID [facility] Last Admin: 04/14/16 14:03 Dose: 200 mg Ziprasidone (Geodon (Generic) *) 40 mg PO DAILY [facility] Last Admin: 04/14/16 10:15 Dose: 40 mg - Discharge Plan Discharge Plan: Outpatient Follow Up
[2016-04-15] MEDS: Lithium LIQ* 300 MG/5 ML UDC PO SCH ×2 (10:06→21:46)
[2016-04-15] MEDS: Ziprasidone * 20 MG CAP (generic Geodon) PO SCH (10:06)
[2016-04-15] MEDS: Propylthiouracil TAB* 50 MG PO SCH ×3 (10:06→21:45)
--- NOTE | 2016-04-15 16:59 | PN ---
Subjective - Subjective Service Type: [id number] Hosp care 15 min low complexity Subjective: Tana advocated for lower doses of medicines. She agreed eventually with 80mg of Geodon, also given the choice to change antipsychotic. She complained of fatigue with it, and preferred once daily evening dosing. She made no delusional comments. She was somatically focused, complaining of cough and headache. She said she had not seen Dr. Mcnally in " a long time " but then acknowledged it was yesterday. I auscultated her chest anterior and posterior (clothed, RN present per routine ) and it was clear. Objective - Appearance Appearance: Thin Framed Hygiene: Normal Grooming: Fairly Well Kept - Behavior Psychomotor Activities: Normal - Attitude and Relatedness Attitude and Relatedness: Manipulative Eye Contact: Good - Speech Quality: Pressured Latencies: Short Quantity: Copious - Mood Patient's Decription of Mood: "Good" - Affect Affect Consistent with: Euthymia - Thought Process Patient's Thought Process: Over Inclusive Thought Content: No Passive Wish, No Suicidal Planning, No Homicidal Ideation, No Paranoid Ideation - Sensorium Experiencing Hallucinations: No, Sensorium is Clear - Level of Consciousness Level of Consciousness: Alert - Impulse Control Impulse Control: Intact - Insight and Judgement Insight and Judgement: Poor Assessment - Assessment Inpatient DSM-IV Dx: Bipolar and related disorder (Psychotic) due to another medical condition (hyperthyroidism). Clinical Impression: 35 y/o beninese female with possible history of PTSD and psychiatric admission, and reported prior suicidal behavior, and history of hyperthyroidism. She was admitted to psychiatry after treatment on the hospitalist medicine service due to psychosis and manic affective symptoms, apparently due to "Thyroid Storm." 1. Manic psychosis: Tana continues symptomatic with delusional ideation, thought disorder, along with manic affective features. Sleep remains improved. 2. Medication management: Order for treatment over objection was granted due to medication refusals. Regimen is [place] (level 1.12 04/14 on 1800mg/day) and Geodon (as been low dose , will increase now). 3. Medical: Medical management is with consultation from Dr. Mcnally (appreciated) . Tana apparently had the Flu last week. Given ongoing impairment due to symptoms, Tana requires continued care. Plan - Plan Treatment Plan: Name: TANA TEMPLE Birthdate: 1980 [id number] Continued Medication Management: Start Medication Medications: Current Medications Acetaminophen (Tylenol Tab*) 650 mg PO Q4H PRN PRN Reason: FEVER/PAIN Diphenhydramine HCl (Benadryl Po*) 25 mg PO Q4H PRN PRN Reason: ITCHING Last Admin: 03/14/16 16:44 Dose: 25 mg [place] Citrate ([place] Liq*) 600 mg PO BID [facility] Last Admin: 04/15/16 10:06 Dose: Not Given Multi-Ingredient Mouthwash/Gargle (Biotene Dry Mouth Oral Rinse(Nf)) 15 ml MT . DIRECTED [facility] Naproxen (Naprosyn Tab*) 500 mg PO BID PRN PRN Reason: FEVER/PAIN Propylthiouracil (Ptu Tab*) 200 mg PO TID [facility] Last Admin: 04/15/16 14:14 Dose: Not Given - Discharge Plan Discharge Plan: Outpatient Follow Up
[2016-04-15] MEDS: Ziprasidone CAP* 80 MG PO SCH (21:45)
[2016-04-16] MEDS: Propylthiouracil TAB* 50 MG PO SCH ×3 (09:01→21:49)
[2016-04-16] MEDS: Lithium LIQ* 300 MG/5 ML UDC PO SCH ×2 (09:01→21:49)
--- NOTE | 2016-04-16 12:56 | PN ---
MHU: Group Therapy Note - Service Type Service Type: [id number] Group Psychotherapy - Cognitive Behavioral Group Therapy ( CBT):Patient presented in CBT programming as disorganized and disruptive in discussion and needed repeated redirection to attend to presented materials.
[2016-04-16] MEDS: Ziprasidone CAP* 80 MG PO SCH (21:49)
[2016-04-17] MEDS: Lithium LIQ* 300 MG/5 ML UDC PO SCH ×3 (09:33→21:07)
[2016-04-17] MEDS: Propylthiouracil TAB* 50 MG PO SCH ×3 (09:34→21:06)
--- NOTE | 2016-04-17 13:53 | PN ---
MHU: Group Therapy Note - Service Type Service Type: [id number] Group Psychotherapy - Cognitive Behavioral Group Therapy ( CBT):Patient presented in CBT programming as disorganized and disruptive in discussion and needed repeated redirection to attend to presented materials.
[2016-04-17] MEDS ORDERED: Ziprasidone * 20 MG CAP (generic Geodon) PO SCH (14:24)
[2016-04-18] MEDS: Propylthiouracil TAB* 50 MG PO SCH ×3 (08:44→21:54)
[2016-04-18] MEDS: Lithium LIQ* 300 MG/5 ML UDC PO SCH ×3 (08:44→21:55)
[2016-04-18 10:12] LABS: TSH (Thyroid Stimulating Horm) 0.1 mcIU/mL (0.34-5.60)
[2016-04-18 10:19] LABS: Free T4 1.32 ng/dL (0.61-1.12)
[2016-04-18 10:22] LABS: Free T3 3.4 pg/mL (2.5-3.9)
[2016-04-18 10:26] LABS: Total T3 0.99 ng/mL (0.87-1.78)
--- NOTE | 2016-04-18 11:58 | PN ---
MHU: Group Therapy Note - Service Type Service Type: [id number] Group Psychotherapy - Cognitive Behavioral Therapy (CBT): Patient presents with high volume of speech that impresses as being coherent within the context of self-report, but is tangential and off topic in group context. Concerns regarding disorganization of thought are apparent. Xi was better able to focus on relevant conversation, and initiated discussion in defining various symptoms of psychosis.
--- NOTE | 2016-04-18 12:45 | PN ---
Subjective - Subjective Service Type: [id number] Hosp care 15 min low complexity Subjective: Tana says "I'm doing worse" and actually asked for help. She has remained concerned about dose increases with Geodon, and I informed her that given her concerns, and Geodon's profile, I determine that we should abandon it and replace it with Zyprexa, on the basis that it's more likely to help her. She rambled on multiple topics, talking about leaving the country, getting a lot of calls, getting support from the [place] community. Objective - Appearance Appearance: Thin Framed Hygiene: Normal Grooming: Fairly Well Kept - Behavior Psychomotor Activities: Normal - Attitude and Relatedness Attitude and Relatedness: Superficially Cooperative Eye Contact: Good - Speech Quality: Pressured Latencies: Short Quantity: Copious - Mood Patient's Decription of Mood: "Okay" - Affect Observed Affect: Tense Affect Consistent with: Dysphoria - Thought Process Patient's Thought Process: Loose Associations, Over Inclusive Thought Content: No Passive Wish, No Suicidal Planning, No Homicidal Ideation, No Paranoid Ideation - Sensorium Experiencing Hallucinations: No, Sensorium is Clear - Level of Consciousness Level of Consciousness: Alert - Impulse Control Impulse Control: Intact - Insight and Judgement Insight and Judgement: Poor Assessment - Assessment Merits Inpatient Hospitalization: For Immediate Safety, For Stabilization, To Initiate Treatment, For Ongoing Evaluation, Pending Safe DC Plan Inpatient DSM-IV Dx: Bipolar and related disorder (Psychotic) due to another medical condition (hyperthyroidism). Clinical Impression: 35 y/o ecu[place] female with possible history of PTSD and psychiatric admission, and reported prior suicidal behavior, and history of hyperthyroidism. She was admitted to psychiatry after treatment on the hospitalist medicine service due to psychosis and manic affective symptoms, apparently due to "Thyroid Storm." 1. Manic psychosis: Tana continues symptomatic with delusional ideation, thought disorder, along with manic affective features. Sleep remains improved. She has had recent therapeutic [place] levels and it has not controlled her psychosis. She's having difficulties with Geodon titration, so a medication change is indicated. 2. Medication management: Order for treatment over objection was granted due to medication refusals. Regimen is [place] (varible serum levels this week and dosage changes) and Geodon (has been low dose, with difficulty increasing) - antipsychotic will change now to Zyprexa, which is known to be more effective, and can be therapeutic at doses close to or at initiation dose. 3. Medical: Medical management is with consultation from Dr. Mcnally (appreciated) . Given ongoing impairment due to symptoms, Tana requires continued care. Plan - Plan Treatment Plan: Name: TANA TEMPLE Birthdate: 1980 [id number] Continued Medication Management: Different Medication Medications: Current Medications Acetaminophen (Tylenol Tab*) 650 mg PO Q4H PRN PRN Reason: FEVER/PAIN Diphenhydramine HCl (Benadryl Po*) 25 mg PO Q4H PRN PRN Reason: ITCHING Last Admin: 03/14/16 16:44 Dose: 25 mg [place] Citrate ([place] Liq*) 600 mg PO BID [facility] Last Admin: 04/18/16 08:44 Dose: 600 mg [place] Citrate ([place] Liq*) 300 mg PO Q24H [facility] Last Admin: 04/17/16 15:27 Dose: 300 mg Multi-Ingredient Mouthwash/Gargle (Biotene Dry Mouth Oral Rinse(Nf)) 15 ml MT . DIRECTED [facility] Naproxen (Naprosyn Tab*) 500 mg PO BID PRN PRN Reason: FEVER/PAIN Olanzapine (Zyprexa *Odt*) 10 mg PO BEDTIME [facility] Propylthiouracil (Ptu Tab*) 200 mg PO TID [facility] Last Admin: 04/18/16 08:44 Dose: 200 mg - Discharge Plan Discharge Plan: Outpatient Follow Up
[2016-04-18] MEDS: OLANzapine TAB*ODT* 10 MG TAB PO SCH (21:56)
[2016-04-19] MEDS: Lithium LIQ* 300 MG/5 ML UDC PO SCH ×3 (09:35→20:28)
[2016-04-19] MEDS: Propylthiouracil TAB* 50 MG PO SCH ×3 (09:36→20:28)
[2016-04-19] MEDS: OLANzapine TAB*ODT* 10 MG TAB PO SCH (20:28)
[2016-04-20] MEDS: Lithium LIQ* 300 MG/5 ML UDC PO SCH ×3 (08:17→20:09)
[2016-04-20] MEDS: Propylthiouracil TAB* 50 MG PO SCH ×3 (08:18→20:10)
[2016-04-20] MEDS: OLANzapine TAB*ODT* 10 MG TAB PO SCH (20:11)
[2016-04-21] MEDS: Lithium LIQ* 300 MG/5 ML UDC PO SCH ×3 (08:42→20:14)
[2016-04-21] MEDS: Propylthiouracil TAB* 50 MG PO SCH ×3 (08:43→20:15)
--- NOTE | 2016-04-21 08:45 | PN ---
Progress Note - Progress Note Note: Endocrinology note: She has no symptoms of hyperthyroidism at present. Investigations: Laboratory Tests 04/18/16 07:41 TSH 0.10 L Free T4 1.32 H Free T3 3.40 Total T3 0.99 Assessment/plan: 1. Graves' disease/hyperthyroidism: Her thyroid function tests are normal. Her FT4 is elevated as lithium inhibits T4 to T3 conversion. The TSH will remain suppressed for a while. I recommend surgery as definitive therapy - the patient also favors this management plan. I will recheck TFTs, lithium level, LFTs and CBC end of this week 2. Psychosis - per Behavioral Health Unit
--- NOTE | 2016-04-21 12:47 | PN ---
Subjective - Subjective Service Type: [id number] Hosp care 15 min low complexity Subjective: Tana expressed appreciation for the visit. She denied problems with Zyprexa. She said she is doing well, and hopes to be released later this week. She made no delusional comments. But she said her plan after release would be to get housing support from the local "[facility]" and not reside with her , "getting support [place]." Objective - Appearance Appearance: Thin Framed Hygiene: Normal Grooming: Fairly Well Kept - Behavior Psychomotor Activities: Normal - Attitude and Relatedness Attitude and Relatedness: Superficially Cooperative Eye Contact: Good - Speech Quality: Unpressured Latencies: Normal Quantity: Appropriate - Mood Patient's Decription of Mood: "Good" - Affect Observed Affect: Non-labile Affect Consistent with: Euthymia - Thought Process Patient's Thought Process: Impoverished Thought Content: No Passive Wish, No Suicidal Planning, No Homicidal Ideation, No Paranoid Ideation - Sensorium Experiencing Hallucinations: No, Sensorium is Clear - Level of Consciousness Level of Consciousness: Alert - Impulse Control Impulse Control: Intact - Insight and Judgement Insight and Judgement: Poor Assessment - Assessment Merits Inpatient Hospitalization: To Initiate Treatment, For Ongoing Evaluation , Consolidate Improvements, For Discharge Planning Inpatient DSM-IV Dx: Bipolar and related disorder (Psychotic) due to another medical condition (hyperthyroidism). Clinical Impression: 35 y/o [place] island[place] female with possible history of PTSD and psychiatric admission, and reported prior suicidal behavior, and history of hyperthyroidism. She was admitted to psychiatry after treatment on the hospitalist medicine service due to psychosis and manic affective symptoms, apparently due to "Thyroid Storm." 1. Manic psychosis: Relatively improved. Tana has continued symptomatic with delusional ideation, thought disorder, along with manic affective features. Sleep remains improved. Delusional ideation is much less spontaneous/overt. 2. Medication management: Order for treatment over objection was granted due to medication refusals. Regimen is [place] (varible serum levels this week and dosage changes) and Zyprexa (tolerating well, started 04/18). 3. Medical: Medical management is with consultation from Dr. Mcnally (appreciated) . Given ongoing impairment due to symptoms, Tana requires continued care. Plan - Plan Treatment Plan: Name: TANA TEMPLE Birthdate: 1980 [id number] Continued Medication Management: Start Medication Medications: Current Medications Acetaminophen (Tylenol Tab*) 650 mg PO Q4H PRN PRN Reason: FEVER/PAIN Diphenhydramine HCl (Benadryl Po*) 25 mg PO Q4H PRN PRN Reason: ITCHING Last Admin: 03/14/16 16:44 Dose: 25 mg [place] Citrate ([place] Liq*) 600 mg PO BID [facility] Last Admin: 04/21/16 08:42 Dose: 600 mg [place] Citrate ([place] Liq*) 300 mg PO Q24H [facility] Last Admin: 04/20/16 14:02 Dose: 300 mg Multi-Ingredient Mouthwash/Gargle (Biotene Dry Mouth Oral Rinse(Nf)) 15 ml MT . DIRECTED [facility] Naproxen (Naprosyn Tab*) 500 mg PO BID PRN PRN Reason: FEVER/PAIN Olanzapine (Zyprexa *Odt*) 10 mg PO BEDTIME [facility] Last Admin: 04/20/16 20:11 Dose: 10 mg Propylthiouracil (Ptu Tab*) 200 mg PO TID [facility] Last Admin: 04/21/16 08:43 Dose: 200 mg - Discharge Plan Discharge Plan: Outpatient Follow Up
--- NOTE | 2016-04-21 14:48 | PN ---
MHU: Group Therapy Note - Service Type Service Type: [id number] Group Psychotherapy - Cognitive Behavioral Group Therapy ( CBT):Patient was attentive and participatory in CBT programming this morning, and remained in good behavioral control. Patient expressed positive insights regarding relevant treatment interventions and goals.
[2016-04-21] MEDS: OLANzapine TAB*ODT* 5 MG PO SCH (20:15)
[2016-04-22] MEDS: Propylthiouracil TAB* 50 MG PO SCH ×3 (08:36→20:21)
[2016-04-22] MEDS: Lithium LIQ* 300 MG/5 ML UDC PO SCH ×3 (08:36→20:21)
[2016-04-22 13:25] LABS: Urine Bacteria Absent (Absent); Urine Bilirubin Negative (Negative); Urine Glucose Negative (Negative); Urine Nitrite Negative (Negative)
[2016-04-22 13:43] LABS: Hematocrit 42 % (35-47); Hemoglobin 13.8 g/dl (12.0-16.0); Mean Corpuscular HGB Conc 33 g/dl (31-36); Mean Corpuscular Hemoglobin 28 pg (27-31); Mean Corpuscular Volume 85 fL (80-97); Mean Platelet Volume 7 um3 (7.4-10.4); Red Blood Count 4.97 10^6/ul (4.0-5.4); Red Cell Distribution Width 16 % (10.5-15); White Blood Count 7.8 10^3/ul (3.5-10.8)
[2016-04-22 14:32] LABS: ALT 15 U/L (7-52); AST 15 U/L (13-39); Albumin 4.2 g/dL (3.2-5.2); Alkaline Phosphatase 156 U/L (34-104); Anion Gap 6 mmol/L (2-11); BUN/Creatinine Ratio 17.7 (8-20); Blood Urea Nitrogen 11 mg/dL (6-24); C Reactive Protein < 1.00 mg/L (< 5.00); CO2 Carbon Dioxide 28 mmol/L (22-32); Calcium 9.7 mg/dL (8.6-10.3); Chloride 103 mmol/L (101-111); EGFR African American 140.1 (>60); EGFR Non-African American 108.9 (>60); Globulin 3.3 g/dL (2-4); Glucose 84 mg/dL (70-100); Potassium 4.2 mmol/L (3.5-5.0); Sodium 137 mmol/L (133-145); Total Protein 7.5 g/dL (6.4-8.9)
--- NOTE | 2016-04-22 14:36 | PN ---
MHU: Group Therapy Note - Service Type Service Type: [id number] Group Psychotherapy - Cognitive Behavioral Group Therapy ( CBT):Patient was attentive and participatory in CBT programming this morning, and remained in good behavioral control. Patient expressed positive insights regarding relevant treatment interventions and goals.
[2016-04-22 14:42] LABS: Erythrocyte Sed Rate 9 mm/Hr (0-14)
--- NOTE | 2016-04-22 16:16 | RAD ---
INDICATION: Right upper quadrant pain COMPARISON: None TECHNIQUE: Longitudinal and transverse scans of the right upper quadrant were obtained. Doppler interrogation of the hepatic and portal venous system was performed. FINDINGS: Liver: The liver is normal in size and echogenicity. There are no focal masses. The liver measures 14.4 cm in cephalocaudal dimension. Vessels: There is normal hepatic and portal venous flow. Bile ducts: There is no evidence of intrahepatic or extrahepatic ductal dilatation. The common duct measures 0.4 cm. Gallbladder: The sonographic appearance of the gallbladder is normal. There is no evidence of cholelithiasis, thickening of the gallbladder wall, or pericholecystic fluid. Pancreas: The visualized pancreas appears normal Right kidney: The right kidney is normal in size and echogenicity. There are no masses or calculi. There is no evidence of hydronephrosis. The right kidney measures 10.5 x 3.7 x 5.5 cm. IVC and aorta: The aorta and superior vena cava appear normal. Fluid: There is no ascites. Other: None. IMPRESSION: NORMAL EXAMINATION.
--- NOTE | 2016-04-22 17:20 | CONS ---
CONSULTATION REPORT: DATE OF CONSULT: 04/22/16 PRIMARY CARE PROVIDER: None. REQUESTING PHYSICIAN: Dr. Lamb. ATTENDING PHYSICIAN WHILE IN THE HOSPITAL: Dr. Eliseo Oro (reported dictated by Morro [place] NP). REASON FOR MEDICAL CONSULTATION: Evaluation of abdominal pain. HISTORY OF PRESENTING ILLNESS: Mrs. Mancilla is a 35-year-old female patient with a history of PTSD, hyperthyroidism, has a breast lesion that was resected by Dr. Quinn. In addition, there is also a history of psychosis. She has had a long hospitalization here both on the medical floor for thyroid storm recently in the beginning of February. In addition to this, also a long hospitalization in the psychiatric [facility] for management of her psychosis. We were asked to reevaluate the patient in consult today. She was recently evaluated almost about 3 weeks ago for influenza A. Those symptoms have resolved. However, today she woke up with left upper quadrant abdominal discomfort around 7 a.m. It got worse with position change. She states that she has not had any fevers and there is no other symptoms of nausea, vomiting, or diarrhea. She had a bowel movement today that she said appeared to be dry. She states that she has not had any worsening pain with eating and has not had any chills. The patient states that her cough has resolved now from the flu. She does state that she has to clear some secretions at times. However, she feels much improved in terms of her flu symptoms. There was concern because of the abdominal discomfort and the hospitalist service was asked to evaluate. The patient also does give a complaint that since February, she has been having difficulty with reading fine print. She states that she does not have trouble with larger print , but whenever she is reading, she has trouble with reading fine print and she has to move the magazine a little bit closer for her to read, but her bigger complaint today and why we were asked to evaluate the patient was for abdominal discomfort. PAST MEDICAL HISTORY: Significant for: 1. PTSD. 2. Hyperthyroidism. 3. Thyroid storm. 4. Breast lesion. 5. Asthma. PAST SURGICAL HISTORY: She has had a lumpectomy. CURRENT MEDICATIONS: Include: 1. Tylenol 650 p.o. every 4 hours as needed. 2. Benadryl 25 mg every 4 hours as needed. 3. Ronda 600 mg p.o. b.i.d. 4. Ronda 300 mg daily. 5. Biotene 15 cc daily as directed. 6. Naproxen 500 mg p.o. b.i.d. 7. Zyprexa 15 mg at bedtime. 8. PTU 200 mg p.o. t.i.d. ALLERGIES TO MEDICATIONS: Include TAPAZOLE. FAMILY HISTORY: Her mother in child . Her father's history is unknown. SOCIAL HISTORY: She does not smoke, she does not drink. Her healthcare proxy now is her brother. REVIEW OF SYSTEMS: There is no documented fever. She denied having any significant weight change. There was no double vision. There is no ear discharge. She denies having any rhinorrhea. There is no sore throat. No thyroid enlargement. She denies having any chest pain. There is no orthopnea. She does admit to abdominal discomfort, described as a dull pain in the right upper quadrant but no nausea, no vomiting, no dysuria, no frequency. There is no loss of consciousness, no pruritus and no skin ulcerations. Review of 14 systems completed, all others negative. PHYSICAL EXAMINATION: Reveals vital signs of blood pressure 112/64, pulse 70, respirations 16, O2 sat 100%, temperature 98.6. Generally, at this time, Mrs. Mancilla is a 35-year-old female patient. She is sitting in the psychiatric bed. She does not appear to be in acute distress. HEENT: Head is atraumatic and normocephalic. Eyes: EOMS are intact. Sclerae anicteric, not pale. Neck: Supple. Throat: Oral mucosa appears to be moist. No oropharyngeal erythema. Heart sounds S1, S2. Regular rate and rhythm. No murmurs, rubs or gallops. Lungs: Clear to auscultation bilaterally. There is no wheezes, rales or rhonchi. Abdomen: Soft, flat, nontender. Bowel sounds present. Extremities: Pulses 2+ throughout. She is able to move all 4 extremities with 5/5 strength. Neurologically, the patient is awake, she is alert, she is oriented x3. Tongue is midline. Quality Review Trainer were equal. No gross focal deficits. Skin: Grossly intact. DIAGNOSTIC STUDIES/LAB DATA: Labs from 3 weeks ago revealed WBC of 6.0, RBC of 5.32, hemoglobin 14.7, hematocrit 44, platelet count 245. INR is 1.07. Sodium was 129, potassium 3.9, chloride 98, bicarb was 22, BUN was 9, creatinine 0.63, glucose of 94, AST 20, ALT 20, alk phos was 116, albumin was 4.3. Last TSH was 0.10. T4 was 1.32. Total T3 was 3.4. Urine from the 05 of April, was negative. Toxicology for lithium level was low and serology was positive for flu on the 05 of April. She has had chest x-ray on the , it showed no active disease. Old medical records were reviewed. ASSESSMENT AND PLAN: Mrs. Mancilla is a 35-year-old female patient presenting to Psychiatry for psychosis secondary to thyroid storm, now receiving treatment. Hospitalist service was asked to evaluate in consult for abdominal pain. Our recommendations at this point are: 1. Posttraumatic stress disorder and history of psychosis. I will defer the management to Dr. Lamb and the team. 2. Hyperthyroidism. Dr. Mcnally is following and will follow. 3. Abdominal pain. The etiology is unclear. She does have tenderness in the right upper quadrant. I would like to start out with getting a CBC and CMP and we will also get a urinalysis along with a beta-HCG test as well. If that is negative, I probably would consider doing some imaging. I am going to start out with at least a right upper quadrant ultrasound for the time being and depending on the test, we may consider doing CT scan or possibly a HIDA scan. We will continue to follow. 4. Visual changes. Again at this point, the patient has been having difficulty since February. The patient has been following with Dr. Mcnally and according to the nursing staff, there is possible setup with an fan engine engineer. I am going to call Dr. Mcnally to confirm this, which I think is the appropriate consult for this as the vision changes may be related to the hyperthyroidism. 5. Breast lesions. She should follow up with her primary, one will be established. 6. Asthma. This is not an active issue, we will monitor. 7. DVT prophylaxis. I will defer this to the primary team. 8. Fluids, electrolytes, and nutrition. Until further testing, I would like to keep the patient nothing by mouth for the testing. 9. Code status. Full code. TIME SPENT: Time spent on consult is 60 minutes, greater than half time spent face- to-face with the patient obtaining my history and physical; the other half time spent going over the plan of care with the patient and implementing the plan of care. I did discuss the plan of care with my attending, Dr. Oro; he is in agreement. MORRO [place]TA[place] NP CC: Dr. Lamb [id number]/CPS #: [id number] GURVINDER
[2016-04-22] MEDS: OLANzapine TAB*ODT* 5 MG PO SCH (20:23)
[2016-04-23] MEDS: Lithium LIQ* 300 MG/5 ML UDC PO SCH ×3 (08:30→20:13)
[2016-04-23] MEDS: Propylthiouracil TAB* 50 MG PO SCH ×3 (08:31→20:14)
--- NOTE | 2016-04-23 10:48 | PN ---
Subjective - Subjective Service Type: 88760 Hosp care 15 min low complexity Subjective: Tana's concerns were somatic - was a little reassured that her ultrasound was normal. She also asked about seeing an eye doctor. She was agreeable with medications and ongoing hospital care, and denied problems or side effects. She made no delusional comments. Objective - Appearance Appearance: Thin Framed Dysmorphic Features: No Hygiene: Normal Grooming: Fairly Well Kept - Behavior Psychomotor Activities: Normal - Attitude and Relatedness Attitude and Relatedness: Minimally Cooperative Eye Contact: Good - Speech Quality: Unpressured Latencies: Normal Quantity: Appropriate - Mood Patient's Decription of Mood: "Good" - Affect Observed Affect: Non-labile Affect Consistent with: Euthymia - Thought Process Patient's Thought Process: Coherent, Impoverished Thought Content: No Passive Wish, No Suicidal Planning, No Homicidal Ideation, No Paranoid Ideation - Sensorium Experiencing Hallucinations: No, Sensorium is Clear - Level of Consciousness Level of Consciousness: Alert - Impulse Control Impulse Control: Intact - Insight and Judgement Insight and Judgement: Poor Assessment - Assessment Inpatient DSM-IV Dx: Bipolar and related disorder (Psychotic) due to another medical condition (hyperthyroidism). Clinical Impression: 35 y/o maltese female with possible history of PTSD and psychiatric admission, and reported prior suicidal behavior, and history of hyperthyroidism. She was admitted to psychiatry after treatment on the hospitalist medicine service due to psychosis and manic affective symptoms, apparently due to "Thyroid Storm." 1. Manic psychosis: Relatively improved. Tana is less symptomatic. Delusional ideation is less spontaneous. Thought disorder and manic affective features are milder. Sleep remains improved. 2. Medication management: Order for treatment over objection was granted due to medication refusals. Regimen is [place] (varible serum levels this week and dosage changes) and Zyprexa (tolerating well, started 04/18). 3. Medical: Medical management is with consultation from Dr. Mcnally (appreciated) . And hospitalist involved starting 04/22 for complaint of abd. pain. Given ongoing impairment due to symptoms, Tana requires continued care. Plan - Plan Treatment Plan: Name: TANA TEMPLE Birthdate: 1980 [id number] Continued Medication Management: Start Medication Medications: Current Medications Acetaminophen (Tylenol Tab*) 650 mg PO Q4H PRN PRN Reason: FEVER/PAIN Diphenhydramine HCl (Benadryl Po*) 25 mg PO Q4H PRN PRN Reason: ITCHING Last Admin: 03/14/16 16:44 Dose: 25 mg [place] Citrate ([place] Liq*) 600 mg PO BID [facility] Last Admin: 04/23/16 08:30 Dose: 600 mg [place] Citrate ([place] Liq*) 300 mg PO Q24H [facility] Last Admin: 04/22/16 14:01 Dose: 300 mg Multi-Ingredient Mouthwash/Gargle (Biotene Dry Mouth Oral Rinse(Nf)) 15 ml MT . DIRECTED [facility] Naproxen (Naprosyn Tab*) 500 mg PO BID PRN PRN Reason: FEVER/PAIN Olanzapine (Zyprexa * Tab Odt) 15 mg PO BEDTIME [facility] Last Admin: 04/22/16 20:23 Dose: 15 mg Propylthiouracil (Ptu Tab*) 200 mg PO TID [facility] Last Admin: 04/23/16 08:31 Dose: 200 mg - Discharge Plan Discharge Plan: Outpatient Follow Up
--- NOTE | 2016-04-23 10:58 | PN ---
[facility]: Group Therapy Note - Service Type Service Type: [id number] Group Psychotherapy - Cognitive Behavioral Group Therapy ( CBT):Patient was attentive and participatory in CBT programming this morning, and remained in good behavioral control. Patient expressed positive insights regarding relevant treatment interventions and goals.
--- NOTE | 2016-04-23 17:48 | PN ---
Subjective Date of Service: 04/23/16 Interval History: Patient seen and examined at bedside. Pt states that she has had vision trouble for awhile, she feels that this had initially improved when she first arrived on the unit, but over the last week has gotten worse since she was restarted on [place]. She reports needing to look at things close up to read, she is also reporting "light" around objects. Pt also continues to have right sided abdominal pain, she reports no change in the pain since it started yesterday. Reports moving her bowls this AM and passing a large amount of flatus. Denies fever, chills, shortness of breath, chest discomfort, N/V/D. Pt reports an occasional cough. Family History: Unchanged from Admission Social History: Unchanged from Admission Past Medical History: Unchanged from Admission Objective Active Medications: Acetaminophen (Tylenol Tab*) 650 mg PO Q4H PRN Reason: FEVER/PAIN Diphenhydramine HCl (Benadryl Po*) 25 mg PO Q4H PRN Reason: ITCHING [place] Citrate ([place] Liq*) 600 mg PO BID [facility] [place] Citrate ([place] Liq*) 300 mg PO Q24H [facility] Multi-Ingredient Mouthwash/Gargle (Biotene Dry Mouth Oral Rinse(Nf)) 15 ml MT . DIRECTED [facility] Naproxen (Naprosyn Tab*) 500 mg PO BID PRN Reason: FEVER/PAIN Olanzapine (Zyprexa * Tab Odt) 15 mg PO BEDTIME [facility] Propylthiouracil (Ptu Tab*) 200 mg PO TID [facility] Vital Signs 04/23/16 04/23/16 07:40 11:04 Temperature 98.5 F Pulse Rate 66 Respiratory 16 16 Rate Blood Pressure 109/66 (mmHg) O2 Sat by Pulse 100 Oximetry Oxygen Devices in Use Now: None Appearance: NAD, sitting on side of bed. Eyes: No Scleral Icterus, PERRLA Ears/Nose/Mouth/Throat: NL Teeth, Lips, Gums, Mucous Membranes Moist Neck: NL Appearance and Movements; NL JVP, Trachea Midline Respiratory: Symmetrical Chest Expansion and Respiratory Effort, Clear to Auscultation Cardiovascular: NL Sounds; No Murmurs; No JVD, RRR Abdominal: - - Bowel sounds present, abdominal tenderness in right upper quard ( more towards ribs), abdomen soft, non distended Extremities: No Edema Skin: No Rash or Ulcers Neurological: Alert and Oriented x 3, NL Muscle Strength and Tone Nutrition: Taking PO's Result Diagrams: 04/22/16 13:20 04/22/16 13:20 Microbiology and Other Data: Microbiology 04/05/16 09:00 Influenza Types A,B Antigen (YEMI) - Final Nasal Specimen received for Influenza A/B Molecular testing Assess/Plan/Problems-Billing Ms. Mancilla is a 35 yo F with thyroid storm and lakshmi s/p transfer to [facility] on to continue treatment. - Patient Problems (1) Abdominal pain Code(s): R10.9 - UNSPECIFIED ABDOMINAL PAIN SNOMED Code(s): 83441509 Comment: - Patient reports no change in the pain - GB ultrasound with no acute findings - Suspect this may be muscular (2) Vision changes Code(s): H53.9 - UNSPECIFIED VISUAL DISTURBANCE SNOMED Code(s): 49642580 Comment: - Pt c/o vision changes, these are not new. Pt states that changes returned after starting [place]. - Pt noted to be reading in [place]. - Recommend outpatient Ophthalmology consult, visual changes may be related to hyperthyroidism. (3) Lakshmi Code(s): F30.9 - MANIC EPISODE, UNSPECIFIED SNOMED Code(s): 312135531 Comment: - In setting of thyroid storm - continue management per Psychiatry (4) Breast lesion Code(s): N64.9 - DISORDER OF BREAST, UNSPECIFIED SNOMED Code(s): 810458014 Comment: - Follow-up with PCP outpatient (5) Asthma Code(s): J45.909 - UNSPECIFIED ASTHMA, UNCOMPLICATED SNOMED Code(s): 018081968 Comment: - No active issue at this time (6) Full code status Code(s): Z78.9 - OTHER SPECIFIED HEALTH STATUS SNOMED Code(s): 203307467 Status and Disposition: Inpatient. Continue supportive therapy. Will monitor additional results but will sign off at this time, please feel free to contact me with any further questions. Will see patient as needed.
[2016-04-23] MEDS: OLANzapine TAB*ODT* 5 MG PO SCH (20:15)
[2016-04-24] MEDS: Lithium LIQ* 300 MG/5 ML UDC PO SCH ×3 (08:43→20:04)
[2016-04-24] MEDS: Propylthiouracil TAB* 50 MG PO SCH ×3 (08:43→20:04)
[2016-04-24] MEDS: OLANzapine TAB*ODT* 5 MG PO SCH (20:05)
[2016-04-25] MEDS: Propylthiouracil TAB* 50 MG PO SCH ×3 (09:11→20:07)
[2016-04-25] MEDS: Lithium LIQ* 300 MG/5 ML UDC PO SCH ×3 (09:17→20:05)
[2016-04-25 10:40] LABS: Hematocrit 43 % (35-47); Hemoglobin 14.1 g/dl (12.0-16.0); Mean Corpuscular HGB Conc 33 g/dl (31-36); Mean Corpuscular Hemoglobin 28 pg (27-31); Mean Corpuscular Volume 85 fL (80-97); Mean Platelet Volume 8 um3 (7.4-10.4); Red Blood Count 5.07 10^6/ul (4.0-5.4); Red Cell Distribution Width 17 % (10.5-15); White Blood Count 7.4 10^3/ul (3.5-10.8)
[2016-04-25 10:57] LABS: Lithium 0.65 mmol/L (0.6-1.2)
[2016-04-25 10:58] LABS: Albumin 4.4 g/dL (3.2-5.2); Direct Bilirubin 0.1 mg/dL (0.03-0.18); Globulin 3.1 g/dL (2-4); Indirect Bilirubin 0.4 mg/dL (0.3-1.0); Total Bilirubin 0.5 mg/dL (0.2-1.0); Total Protein 7.5 g/dL (6.4-8.9)
[2016-04-25 11:09] LABS: TSH (Thyroid Stimulating Horm) 0.13 mcIU/mL (0.34-5.60)
[2016-04-25 11:13] LABS: Free T3 3.5 pg/mL (2.5-3.9)
[2016-04-25 11:15] LABS: Free T4 0.87 ng/dL (0.61-1.12)
[2016-04-25 11:21] LABS: Total T3 0.94 ng/mL (0.87-1.78)
--- NOTE | 2016-04-25 12:01 | PN ---
[facility]: Group Therapy Note - Service Type Service Type: [id number] Group Psychotherapy - Cognitive Behavioral Therapy (CBT): Patient presents with high volume of speech that impresses as being coherent within the context of self-report, but is tangential and off topic in group context. Concerns regarding disorganization of thought are apparent.
--- NOTE | 2016-04-25 13:34 | PN ---
Subjective - Subjective Service Type: 22551 Hosp care 15 min low complexity Subjective: Xi's only stated concern is "something is growing in my eye." She perseverated on it. She made no obviously delusional comments. She said she is not communicating with her . She accepted info that Zyprexa dose is increasing and was okay with it, only protesting the small tablet size. Objective - Appearance Appearance: Thin Framed Hygiene: Normal Grooming: Fairly Well Kept - Behavior Psychomotor Activities: Normal - Attitude and Relatedness Attitude and Relatedness: Psychotically Related Eye Contact: Good - Speech Quality: Unpressured Latencies: Short Quantity: Appropriate - Mood Patient's Decription of Mood: "Anxious" - Affect Observed Affect: Tense Affect Consistent with: Dysphoria - Thought Process Patient's Thought Process: Over Inclusive - perseverative Thought Content: No Passive Wish, No Suicidal Planning, No Homicidal Ideation, No Paranoid Ideation - Sensorium Experiencing Hallucinations: No, Sensorium is Clear - Level of Consciousness Level of Consciousness: Alert - Impulse Control Impulse Control: Intact - Insight and Judgement Insight and Judgement: Poor Assessment - Assessment Merits Inpatient Hospitalization: For Immediate Safety, To Initiate Treatment, For Ongoing Evaluation, Consolidate Improvements, Pending Safe DC Plan Inpatient DSM-IV Dx: Bipolar and related disorder (Psychotic) due to another medical condition (hyperthyroidism). Clinical Impression: 35 y/o dutch female with possible history of PTSD and psychiatric admission, and reported prior suicidal behavior, and history of hyperthyroidism. She was admitted to psychiatry after treatment on the hospitalist medicine service due to psychosis and manic affective symptoms, apparently due to "Thyroid Storm." 1. Manic psychosis: Relatively improved. Xi is less symptomatic. Delusional ideation is less spontaneous. Thought disorder and manic affective features are milder. She is still impaired and off baseline. Sleep remains improved. 2. Medication management: Order for treatment over objection was granted due to medication refusals. Regimen is [place] (level 0.65 04/25) and Zyprexa (tolerating well, started 04/18) . 3. Medical: Medical management is with consultation from Dr. Mcnally (appreciated ) discussed case 04/25: his opinion was that eye complaints should be followed up in eye clinic after discharge. And hospitalist was involved starting 04/22 for complaint of abd. pain - evaluation was reassuring. Given ongoing impairment due to symptoms, Xi requires continued care. Plan - Plan Treatment Plan: Name: ROSA TEMPLE Birthdate: 1980 [id number] Continued Medication Management: Start Medication Medications: Current Medications Acetaminophen (Tylenol Tab*) 650 mg PO Q4H PRN PRN Reason: FEVER/PAIN Diphenhydramine HCl (Benadryl Po*) 25 mg PO Q4H PRN PRN Reason: ITCHING Last Admin: 03/14/16 16:44 Dose: 25 mg [place] Citrate ([place] Liq*) 600 mg PO BID [facility] Last Admin: 04/25/16 09:17 Dose: 600 mg [place] Citrate ([place] Liq*) 300 mg PO Q24H [facility] Last Admin: 04/24/16 13:32 Dose: 300 mg Multi-Ingredient Mouthwash/Gargle (Biotene Dry Mouth Oral Rinse(Nf)) 15 ml MT . DIRECTED [facility] Naproxen (Naprosyn Tab*) 500 mg PO BID PRN PRN Reason: FEVER/PAIN Olanzapine (Zyprexa * Tab Odt) 15 mg PO BEDTIME [facility] Last Admin: 04/24/16 20:05 Dose: 15 mg Propylthiouracil (Ptu Tab*) 200 mg PO TID [facility] Last Admin: 04/25/16 09:11 Dose: 200 mg - Discharge Plan Discharge Plan: Outpatient Follow Up
[2016-04-25] MEDS: OLANzapine TAB*ODT* 10 MG TAB PO SCH (20:06)
[2016-04-26] MEDS: Propylthiouracil TAB* 50 MG PO SCH ×3 (09:12→20:13)
[2016-04-26] MEDS: Lithium LIQ* 300 MG/5 ML UDC PO SCH ×3 (09:14→20:12)
[2016-04-26] MEDS: OLANzapine TAB*ODT* 10 MG TAB PO SCH (20:14)
[2016-04-27] MEDS: Lithium LIQ* 300 MG/5 ML UDC PO SCH ×3 (08:56→20:06)
[2016-04-27] MEDS: Propylthiouracil TAB* 50 MG PO SCH ×3 (08:57→20:06)
[2016-04-27] MEDS: OLANzapine TAB*ODT* 10 MG TAB PO SCH (20:07)
[2016-04-28] MEDS: Lithium LIQ* 300 MG/5 ML UDC PO SCH ×3 (08:28→20:28)
[2016-04-28] MEDS: Propylthiouracil TAB* 50 MG PO SCH ×3 (08:28→20:27)
--- NOTE | 2016-04-28 08:54 | PN ---
Subjective - Subjective Service Type: 02576 Hosp care 15 min low complexity Subjective: Tana reports having a good weekend due to "less group meetings." She denied any concerns or complaints, or side effect with medicines. She made no delusional statements and backed off from prior statements of concern: - she denied plan for going to [facility] - she did not answer the question as to whether she has children (previously delusionally said she did) - she again said she is not in touch with her - she said she will work with family as to where she goes upon discharge. Objective - Appearance Appearance: Thin Framed Hygiene: Normal Grooming: Fairly Well Kept - Behavior Psychomotor Activities: Normal - Attitude and Relatedness Attitude and Relatedness: Guarded Eye Contact: Good - Speech Quality: Unpressured Latencies: Normal Quantity: Appropriate - Mood Patient's Decription of Mood: "Good" - Affect Observed Affect: Expansive Affect Consistent with: Euthymia - Thought Process Patient's Thought Process: Coherent Thought Content: No Passive Wish, No Suicidal Planning, No Homicidal Ideation, No Paranoid Ideation - Sensorium Experiencing Hallucinations: No, Sensorium is Clear - Level of Consciousness Level of Consciousness: Alert - Impulse Control Impulse Control: Intact - Insight and Judgement Insight and Judgement: Poor Assessment - Assessment Merits Inpatient Hospitalization: To Initiate Treatment, For Ongoing Evaluation , Consolidate Improvements, For Discharge Planning, Pending Safe DC Plan Inpatient DSM-IV Dx: Bipolar and related disorder (Psychotic) due to another medical condition (hyperthyroidism). Clinical Impression: 35 y/o hebrew female with possible history of PTSD and psychiatric admission, and reported prior suicidal behavior, and history of hyperthyroidism. She was admitted to psychiatry after treatment on the hospitalist medicine service due to psychosis and manic affective symptoms, apparently due to "Thyroid Storm." 1. Manic psychosis: Continues relatively improved. Xi remains less symptomatic. Delusional ideation is not spontaneous and she appears to be covering / backing off prior statements. Thought disorder is corrected, and manic affective features are milder. She still appears impaired and off baseline. Sleep remains improved. 2. Medication management: Order for treatment over objection was granted due to medication refusals. Regimen is [place] (level 0.65 04/25) and Zyprexa (tolerating well, started 04/18, at 20mg since 04/25). 3. Medical: Medical management is with consultation from Dr. Mcnally (appreciated ) discussed case 04/25: his opinion was that eye complaints should be followed up in eye clinic after discharge. And hospitalist was involved starting 04/22 for complaint of abd. pain - evaluation was reassuring. Given ongoing impairment due to symptoms, Tana requires continued hospital care. But discharge planning could advance in coming week due to her progress. Plan - Plan Treatment Plan: Name: TANA TEMPLE Birthdate: 1980 [id number] Continued Medication Management: Start Medication Medications: Current Medications Acetaminophen (Tylenol Tab*) 650 mg PO Q4H PRN PRN Reason: FEVER/PAIN Diphenhydramine HCl (Benadryl Po*) 25 mg PO Q4H PRN PRN Reason: ITCHING Last Admin: 03/14/16 16:44 Dose: 25 mg [place] Citrate ([place] Liq*) 600 mg PO BID [facility] Last Admin: 04/28/16 08:28 Dose: 600 mg [place] Citrate ([place] Liq*) 300 mg PO Q24H [facility] Last Admin: 04/27/16 14:09 Dose: 300 mg Multi-Ingredient Mouthwash/Gargle (Biotene Dry Mouth Oral Rinse(Nf)) 15 ml MT . DIRECTED [facility] Naproxen (Naprosyn Tab*) 500 mg PO BID PRN PRN Reason: FEVER/PAIN Olanzapine (Zyprexa *Odt*) 20 mg PO BEDTIME [facility] Last Admin: 04/27/16 20:07 Dose: 20 mg Propylthiouracil (Ptu Tab*) 200 mg PO TID [facility] Last Admin: 04/28/16 08:28 Dose: 200 mg - Discharge Plan Discharge Plan: Outpatient Follow Up
[2016-04-28] MEDS: OLANzapine TAB*ODT* 10 MG TAB PO SCH (20:27)
[2016-04-29] MEDS: Propylthiouracil TAB* 50 MG PO SCH ×3 (08:37→20:11)
[2016-04-29] MEDS: Lithium LIQ* 300 MG/5 ML UDC PO SCH ×3 (08:42→20:10)
[2016-04-29] MEDS: OLANzapine TAB*ODT* 10 MG TAB PO SCH (20:11)
[2016-04-30] MEDS: Propylthiouracil TAB* 50 MG PO SCH ×3 (09:00→20:16)
[2016-04-30] MEDS: Lithium LIQ* 300 MG/5 ML UDC PO SCH ×3 (09:00→20:16)
[2016-04-30] MEDS: OLANzapine TAB*ODT* 10 MG TAB PO SCH (20:16)
[2016-05-01] MEDS: Lithium LIQ* 300 MG/5 ML UDC PO SCH ×3 (08:41→20:21)
[2016-05-01] MEDS: Propylthiouracil TAB* 50 MG PO SCH ×3 (08:42→20:20)
--- NOTE | 2016-05-01 11:07 | PN ---
Subjective - Subjective Service Type: 36244 Hosp care 25 min moderate complexity Subjective: I met with Tana, with MARCO Inman present. Tana made the point that she has been in the hospital a long time, and would like to know what's going on with regard to her discharge. She also made statements to the effect she is unready to leave and may need more care. I provided her with: - an update on her (improved) status, and ongoing symptoms (apparent paranoid ideation and stances) - criteria for planning her release (her giving us the basic information as to where she will be staying and with whom, and permission to speak with her main stakeholder (s) - we are assuming reasonable that this will be her ). - steps to demonstrate her appropriateness for voluntary status - default plan for court hearing for her retention - consideration for referral to [facility] was very guarded. She refused to stay where she will be living after discharge, or even say if she is in communication with her . 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 She declined requests for her to provide a release to allow us to speak with her , though we clearly indicated it was for the purpose of accommodating her interest in leaving the hospital. She denied side effects with medicine, other than noting she is "sleeping a lot. " She continues dressed in hospital clothing wearing a sheet around her head. Objective - Appearance Appearance: Thin Framed Hygiene: Normal Grooming: Fairly Well Kept - Behavior Psychomotor Activities: Normal - Attitude and Relatedness Attitude and Relatedness: Guarded - Paranoid stance Eye Contact: Good - Speech Quality: Unpressured Latencies: Short Quantity: Appropriate - Mood Patient's Decription of Mood: "Great" - Affect Observed Affect: Tense Affect Consistent with: Euthymia - Thought Process Patient's Thought Process: Impoverished Thought Content: Yes Paranoid Ideation - irrational , No Passive Wish, No Suicidal Planning, No Homicidal Ideation - Sensorium Experiencing Hallucinations: No, Sensorium is Clear - Level of Consciousness Level of Consciousness: Alert - Impulse Control Impulse Control: Intact - Insight and Judgement Insight and Judgement: Poor Assessment - Assessment Merits Inpatient Hospitalization: To Initiate Treatment, For Ongoing Evaluation , Consolidate Improvements, For Discharge Planning, Pending Safe DC Plan Inpatient DSM-IV Dx: Bipolar and related disorder (Psychotic) due to another medical condition (hyperthyroidism). Clinical Impression: 35 y/o [place] female with possible history of PTSD and psychiatric admission, and reported prior suicidal behavior, and history of hyperthyroidism. She was admitted to psychiatry after treatment on the hospitalist medicine service due to psychosis and manic affective symptoms, apparently due to "Thyroid Storm." 1. Manic psychosis: Continues relatively improved and less symptomatic. Delusional ideation is not spontaneous and she appears to be covering / backing off prior statements. But significant paranoid stances continue. Thought disorder is corrected, and manic affective features are milder. She still appears impaired and off baseline. Sleep remains improved and normal quantity. 2. Medication management: Order for treatment over objection was granted due to medication refusals. Regimen is [place] (level 0.65 04/25) and Zyprexa (tolerating well, started 04/18, at 20mg since 04/25). 3. Medical: Medical management is with consultation from Dr. Mcnally ([facility] ) discussed case 04/25: his opinion was that eye complaints should be followed up in eye clinic after discharge. And hospitalist was involved starting 04/22 for complaint of abd. pain - evaluation was reassuring. Given ongoing impairment due to symptoms, and her inability to coordinate her post-hospital life situation and aftercare, Tana requires continued hospital care. Its hard to predict - if her paranoid stance resolves it may be possible to work out an outpatient followup plan - if it rigidly persists, she will require referral to the [facility] for a longer inpatient care episode. Plan - Plan Treatment Plan: Name: TANA TEMPLE Birthdate: 1980 [id number] Continued Medication Management: Start Medication Medications: Current Medications Acetaminophen (Tylenol Tab*) 650 mg PO Q4H PRN PRN Reason: FEVER/PAIN Diphenhydramine HCl (Benadryl Po*) 25 mg PO Q4H PRN PRN Reason: ITCHING Last Admin: 03/14/16 16:44 Dose: 25 mg [place] Citrate ([place] Liq*) 600 mg PO BID NIKITA Last Admin: 05/01/16 08:41 Dose: 600 mg [place] Citrate ([place] Liq*) 300 mg PO Q24H NIKITA Last Admin: 04/30/16 13:57 Dose: 300 mg Multi-Ingredient Mouthwash/Gargle (Biotene Dry Mouth Oral Rinse(Nf)) 15 ml MT . DIRECTED [facility] Naproxen (Naprosyn Tab*) 500 mg PO BID PRN PRN Reason: FEVER/PAIN Olanzapine (Zyprexa *Odt*) 20 mg PO BEDTIME [facility] Last Admin: 04/30/16 20:16 Dose: 20 mg Propylthiouracil (Ptu Tab*) 200 mg PO TID [facility] Last Admin: 05/01/16 08:42 Dose: 200 mg - Discharge Plan Discharge Plan: Consider Longer Term Tx
[2016-05-01] MEDS: OLANzapine TAB*ODT* 10 MG TAB PO SCH (20:21)
[2016-05-02 09:04] LABS: BUN/Creatinine Ratio 18.6 (8-20); Calcium 8.7 mg/dL (8.6-10.3); EGFR African American 148.3 (>60); EGFR Non-African American 115.3 (>60); HDL Cholesterol 54.3 mg/dL; Lithium 0.49 mmol/L (0.6-1.2); Potassium 3.9 mmol/L (3.5-5.0)
[2016-05-02] MEDS: Lithium LIQ* 300 MG/5 ML UDC PO SCH ×3 (09:17→20:24)
[2016-05-02] MEDS: Propylthiouracil TAB* 50 MG PO SCH ×3 (09:17→20:23)
--- NOTE | 2016-05-02 10:55 | PN ---
Subjective - Subjective Service Type: 04657 Hosp care 15 min low complexity Subjective: Xi reported having a bit of red blood in her stool on one occasion, and said she had no history of it previously. She was concerned it was related to her prior abdominal discomfort. I let her know that it would be from distal colon/anal pathology like hemorrhoids, and asked if she would like presumptive care with stool softeners, she declined. Objective - Appearance Appearance: Thin Framed Hygiene: Normal Grooming: Fairly Well Kept - Behavior Psychomotor Activities: Normal - Attitude and Relatedness Attitude and Relatedness: Minimally Cooperative Eye Contact: Good - Speech Quality: Unpressured Latencies: Normal Quantity: Appropriate - Mood Patient's Decription of Mood: "Anxious" - Affect Observed Affect: Non-labile Affect Consistent with: Euthymia - Thought Process Patient's Thought Process: Impoverished Thought Content: No Passive Wish, No Suicidal Planning, No Homicidal Ideation, No Paranoid Ideation - Sensorium Experiencing Hallucinations: No, Sensorium is Clear - Level of Consciousness Level of Consciousness: Alert - Impulse Control Impulse Control: Intact - Insight and Judgement Insight and Judgement: Poor Assessment - Assessment Merits Inpatient Hospitalization: To Initiate Treatment, For Ongoing Evaluation , Consolidate Improvements, For Discharge Planning, Pending Safe DC Plan Inpatient DSM-IV Dx: Bipolar and related disorder (Psychotic) due to another medical condition (hyperthyroidism). Clinical Impression: 35 y/o indonesian female with possible history of PTSD and psychiatric admission, and reported prior suicidal behavior, and history of hyperthyroidism. She was admitted to psychiatry after treatment on the hospitalist medicine service due to psychosis and manic affective symptoms, apparently due to "Thyroid Storm." 1. Manic psychosis: Continues relatively improved and less symptomatic. Delusional ideation is not spontaneous and she appears to be covering up / backing off prior statements. But significant paranoid stances continue. Thought disorder is corrected, and manic affective features are milder. She still appears impaired and off baseline. Sleep remains improved and normal quantity. 2. Medication management: Order for treatment over objection was granted due to medication refusals. Regimen is [place] (level 0.49 on 05/02 on 1500mg / day - so increasing dose to 1800mg/day) and Zyprexa (tolerating well, started 04/18, at 20mg since 04/25). 3. Medical: Medical management is with consultation from Dr. Mcnally (appreciated ) discussed case 3/10: his opinion was that eye complaints should be followed up in eye clinic after discharge. And hospitalist was involved 04/22 for complaint of abd. pain - evaluation was reassuring. Given ongoing impairment due to symptoms, and her inability to coordinate her post-hospital life situation and aftercare, Tana requires continued hospital care. Its hard to predict - if her paranoid stance resolves it may be possible to work out an outpatient followup plan - if it rigidly persists, she will require referral to the [facility] for a longer inpatient care episode. Plan - Plan Treatment Plan: Name: TANA TEMPLE Birthdate: 1980 [id number] Continued Medication Management: Start Medication Medications: Current Medications Acetaminophen (Tylenol Tab*) 650 mg PO Q4H PRN PRN Reason: FEVER/PAIN Diphenhydramine HCl (Benadryl Po*) 25 mg PO Q4H PRN PRN Reason: ITCHING Last Admin: 03/14/16 16:44 Dose: 25 mg [place] Citrate ([place] Liq*) 600 mg PO TID NIKITA Multi-Ingredient Mouthwash/Gargle (Biotene Dry Mouth Oral Rinse(Nf)) 15 ml MT . DIRECTED [facility] Naproxen (Naprosyn Tab*) 500 mg PO BID PRN PRN Reason: FEVER/PAIN Olanzapine (Zyprexa *Odt*) 20 mg PO BEDTIME NIKITA Last Admin: 05/01/16 20:21 Dose: 20 mg Propylthiouracil (Ptu Tab*) 200 mg PO TID NIKITA Last Admin: 05/02/16 09:17 Dose: 200 mg - Discharge Plan Discharge Plan: Consider Longer Term Tx
[2016-05-02] MEDS: OLANzapine TAB*ODT* 10 MG TAB PO SCH (20:22)
[2016-05-03] MEDS: Lithium LIQ* 300 MG/5 ML UDC PO SCH ×3 (08:54→20:22)
[2016-05-03] MEDS: Propylthiouracil TAB* 50 MG PO SCH ×3 (08:54→20:21)
[2016-05-03] MEDS: OLANzapine TAB*ODT* 10 MG TAB PO SCH (20:22)
[2016-05-04] MEDS: Lithium LIQ* 300 MG/5 ML UDC PO SCH ×3 (08:41→20:19)
[2016-05-04] MEDS: Propylthiouracil TAB* 50 MG PO SCH ×3 (08:41→20:19)
[2016-05-04] MEDS: OLANzapine TAB*ODT* 10 MG TAB PO SCH (20:19)
[2016-05-05] MEDS: Lithium LIQ* 300 MG/5 ML UDC PO SCH ×3 (11:00→20:43)
[2016-05-05] MEDS: Propylthiouracil TAB* 50 MG PO SCH ×3 (11:00→20:43)
--- NOTE | 2016-05-05 12:41 | PN ---
Subjective - Subjective Service Type: 49172 Hosp care 15 min low complexity Subjective: Tana continues to present as on Thursday that she has had remission of delusions, such as thinking she has children in [facility]. She reports good mood without dangerous intent or plan and without psychosis, but her account of events on the unit is at variance with known facts of the case from her compliance attorney and staff on the unit. Objective - Appearance Appearance: Well Developed/Nourished Dysmorphic Features: Yes Hygiene: Normal Grooming: Fairly Well Kept - Behavior Psychomotor Activities: Normal Exhibits Abnormal Movement: No - Attitude and Relatedness Attitude and Relatedness: Cooperative Eye Contact: Good - Speech Quality: Unpressured Latencies: Normal Quantity: Appropriate - Mood Patient's Decription of Mood: "Good" - Affect Observed Affect: Fair Affect Consistent with: Euthymia - Thought Process Patient's Thought Process: Coherent, Goal Directed Thought Content: No Passive Wish, No Suicidal Planning, No Homicidal Ideation, No Paranoid Ideation - Sensorium Experiencing Hallucinations: No, Sensorium is Clear Type of Hallucinations: Visual: No, Auditory: No, Command: No - Level of Consciousness Level of Consciousness: Alert Orientation: Yes Intact, Yes Orientated to Time, Yes Orientated to Place, Yes Orientated to Person - Impulse Control Impulse Control: Intact - Insight and Judgement Insight and Judgement: Poor - as per discrepant report of events - Group Participation Particating in Group Activities: Yes Group Participation Comments: with minimal participation - Medication Management Medication Management Adherence: Yes Assessment - Assessment Merits Inpatient Hospitalization: For Immediate Safety, For Stabilization, For Discharge Planning, Pending Safe DC Plan Inpatient DSM-IV Dx: Bipolar and related disorder (Psychotic) due to another medical condition (hyperthyroidism). Clinical Impression: Tana Borden is a 35 y/o Guinean woman admitted to this unit due to shamika and psychosis secondary to thyrotoxic storm. She is now compliant with lithium and seroquel, but still with signs of shamika and psychosis. Today she complains of a cough productive of blood. 04.09.16 Remains isolated to room due to flu. Has no complaints today. Says she is taking lithium. 04.11.16 Recovered from flu. Complains today of vomiting green substance. Otherwise no physical or psychiatric complaints. Has recovered from flu, denies any further hemoptysis. Mild uptick in thyroid indices obtained with draw for lithium today, which is subtherapeutic at 0.33. Called Dr Mcnally, left message on his VMx asking his opinion re status of recovery from thyrotoxic storm. As she has been sick and may have been vomiting up doses, will hold at 1800 mg total daily lithium dose and recheck level on Thursday. Nursing report is of no acute changes, not wearing head scarf while they were observing her ( was wearing improvised head scarf when I met with her). She remains pleasant if mildly to moderately intrusive with continued signs of shamika, though milder and better organized now. 04.14. Remains manic and psychotic. Had achieved therapeutic lithium level, but refused last [address] Mcnally following re thyrotoxic storm, appreciate note indicating nothing to do per latest labs. 05.05.16 Taking over care as Dr Talamantes is away, though he testified in hearing for retention today, which was found in favor of [facility]. composite bond worker Ms Inman reports that Tana continues to give reports at variance to known facts, indicative of continued disorganized thought, counter to Xi's "all is well" report to me. Plan - Plan Treatment Plan: Name: TANA TEMPLE Birthdate: 1980 [id number] Family meeting to clarify current status and plan toward discharge. D/W Dr Mcnally f/u care and ophthalmology referral. Encourage compliance with lithium and other meds. Repeat check of lithium ordered for 05/07/16. Monitor MS and safety. Attending groups again. Treatment over objection in place. Medications: Current Medications Acetaminophen (Tylenol Tab*) 650 mg PO Q4H PRN PRN Reason: FEVER/PAIN Diphenhydramine HCl (Benadryl Po*) 25 mg PO Q4H PRN PRN Reason: ITCHING Last Admin: 03/14/16 16:44 Dose: 25 mg [place] Citrate ([place] Liq*) 600 mg PO TID NIKITA Last Admin: 05/05/16 11:00 Dose: 600 mg Multi-Ingredient Mouthwash/Gargle (Biotene Dry Mouth Oral Rinse(Nf)) 15 ml MT . DIRECTED [facility] Naproxen (Naprosyn Tab*) 500 mg PO BID PRN PRN Reason: FEVER/PAIN Olanzapine (Zyprexa *Odt*) 20 mg PO BEDTIME NIKITA Last Admin: 05/04/16 20:19 Dose: 20 mg Propylthiouracil (Ptu Tab*) 200 mg PO TID NIKITA Last Admin: 05/05/16 11:00 Dose: 200 mg - Discharge Plan Discharge Plan: Outpatient Follow Up
[2016-05-05] MEDS: OLANzapine TAB*ODT* 10 MG TAB PO SCH (20:43)
[2016-05-06] MEDS: Propylthiouracil TAB* 50 MG PO SCH ×3 (08:59→20:49)
[2016-05-06] MEDS: Lithium LIQ* 300 MG/5 ML UDC PO SCH ×3 (09:00→20:47)
[2016-05-06] MEDS: OLANzapine TAB*ODT* 10 MG TAB PO SCH (20:47)
[2016-05-07] MEDS: Propylthiouracil TAB* 50 MG PO SCH ×2 (08:03→13:57)
[2016-05-07] MEDS: Lithium LIQ* 300 MG/5 ML UDC PO SCH ×2 (08:04→13:58)
[2016-05-07 08:46] VITALS: BP 115/70
--- NOTE | 2016-05-07 12:33 | DS ---
Subjective - Subjective Service Types: 53440 [facility] Day Mgmt complex over 30 min Discharge Date: 05/07/16 Subjective: In family meeting held yesterday with Tana, her , Ms Inman and myself, Tana reported sustained remission of manic and psychotic symptoms, reporting specifically remission of thoughts that she has children in [facility]. Her concurred that she is doing better this week, and appears to be nearing a stable baseline in his experience of her before this episode of shamika and psychosis related to thyrotoxic storm. Both feel she will be safe and stable if she is discharged today. Ms Inman likewise reports that prior impediment to discharge of Tana's refusal to allow collaboration with her to plan discharge and her insistence instead on involvement of attorneys in the process has gone away with Tana's adoption of a collaborative stance toward the discharge process. She complains of a continued sense of pressure in her eyes and wishes to follow up with Dr Mcnally and an bark grinder as soon as possible. She has consistently denied any dangerous intent or plan to harm self or others, and has for the past 3 days been consistent in her report of no symptoms of shamika or psychosis, nor has she shown any signs of either. Objective - Appearance Appearance: Healthy Appearing Dysmorphic Features: No Hygiene: Normal Grooming: Well Kept - Behavior Psychomotor Activities: Normal Exhibits Abnormal Movement: No - Attitude and Relatedness Attitude and Relatedness: Well Related Eye Contact: Good - Speech Quality: Unpressured Latencies: Normal Quantity: Appropriate - Mood Patient's Decription of Mood: "Good" - Affect Observed Affect: Good Affect Consistent with: Euthymia - Thought Process Patient's Thought Process: Coherent, Goal Directed Thought Content: No Passive Wish, No Suicidal Planning, No Homicidal Ideation, No Paranoid Ideation - Sensorium Experiencing Hallucinations: No, Sensorium is Clear Type of Hallucinations: Visual: No, Auditory: No, Command: No - Level of Consciousness Level of Consciousness: Alert Orientation: Yes Intact, Yes Orientated to Time, Yes Orientated to Place, Yes Orientated to Person - Impulse Control Impulse Control: Intact - Insight and Judgement Insight and Judgement: Fair - Group Participation Particating in Group Activities: Yes - Medication Management Medication Management Adherence: Yes Treatment Course & Assessment Clinical Course & Impression: Tana Borden is a 35 y/o Frisian woman admitted to this unit due to shamika and psychosis secondary to thyrotoxic storm. She is now compliant with lithium and seroquel, but still with signs of shamika and psychosis. Today she complains of a cough productive of blood. 2..17 Remains isolated to room due to flu. Has no complaints today. Says she is taking lithium. 2..17 Recovered from flu. Complains today of vomiting green substance. Otherwise no physical or psychiatric complaints. Has recovered from flu, denies any further hemoptysis. Mild uptick in thyroid indices obtained with draw for lithium today, which is subtherapeutic at 0.33. Called Dr Mcnally, left message on his VMx asking his opinion re status of recovery from thyrotoxic storm. As she has been sick and may have been vomiting up doses, will hold at 1800 mg total daily lithium dose and recheck level on Thursday. Nursing report is of no acute changes, not wearing head scarf while they were observing her ( was wearing improvised head scarf when I met with her). She remains pleasant if mildly to moderately intrusive with continued signs of shamika, though milder and better organized now. 2..17 Remains manic and psychotic. Had achieved therapeutic lithium level, but refused last [address] Mcnally following re thyrotoxic storm, appreciate note indicating nothing to do per latest labs. 3..17 Taking over care as Dr Talamantes is away, though he testified in hearing for retention today, which was found in favor of [facility]. tension worker Ms Inman reports that Tana continues to give reports at variance to known facts, indicative of continued disorganized thought, counter to Tana's "all is well" report to me. 3..17 In family meeting held yesterday, Tana and her reported agreement on terms of her return to live with him and follow up with care in the community. Manic psychosis appears adequately resolved with thought process near enough to baseline now to proceed with outpatient care while living with her . Since her court hearing on Thursday, Tana has been demonstrating no signs nor reporting any symptoms of shamika or psychosis. She has backed away from previous paranoid stance in seeking legal representation to prepare for discharge, now agreeing to collaborate with staff and in arranging for discharge. She continues to sleep well. There is no pressure to her speech. She is reasonable in her discussion with me, with other staff and with her . She is eager to discharge and move forward with outpatient care. [place] level done this morning returned high at 1.22. Dose has therefore been reduced by 20%. I confirmed with [facility] that she can easily administer 3 daily doses of 480 mg as 8 mL each from a 300 mg/5 mL liquid form available there (though not at her preferred pharmacy, [email or web address] She will remain on the liquid lithium due to rash attributed to compounding of the pill form she took here that resolved with the switch to liquid form. I have spoken with Dr Mcnally, who has agreed to monitor lithium levels and adjust dosing until she has established care with a psychiatrist at [facility]. She is tolerating well the olanzapine (Zyprexa) 20 mg nightly dosing. We have discussed that this medication might ultimately be discontinued through gradual dose reductions under the care of her outpatient psychiatrist if she is adequately stable over the next several weeks or few months. We have reviewed side effects possible of weight gain, onset of diabetes and dyslipidemia. She has voiced acceptance of these risks over the short term in order to reduce risk of relapse, but would like to consider with her outpatient prescriber stopping it over the longer term once stable. Tana will see Dr Mcnally tomorrow for medical follow up and has an appointment next at the [facility]. She has intake with [facility] next Thursday. Tana has had adequate remission of shamika and psychosis to reorient from a paranoid and oppositional to a collaborative stance. She is cleared for discharge to follow ups arranged for her. She is assessed as at no acutely increased risk of harm to self or others, and capable of adequate self-care with assistance from her to avoid harm. She can continue to reduce risk of relapse by adherence to aftercare, to which she voices to myself, Ms Inman and her full commitment. Merits Inpatient Hospitalization: No Clear for Discharge: Adequate Clinical Respons, Acceptable Safety Profile, Low Utility of Inpt Care Inpatient DSM-IV Dx: Bipolar and related disorder (Psychotic) due to another medical condition (hyperthyroidism). 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 - Morton III Medical Illness: Thyrotoxicosis - Morton IV Family: is supportive Primary Support Group: - Morton V [id number]: 64 Estimate of Highest-Past Year: 75 Discharge Planning - Discharge Planning Discharge Plan: Outpatient Follow Up Outpatient Program: [facility] Recommendations for Continuing Care: Medication Management, Psychotherapy, Routine Metabolic Monitoring - of lipids, glucose, weight while on olanzapine, Therapeutic Drug Levels - lithium levels to be followed at first by Dr Mcnally Medications: Acetaminophen (Tylenol Tab*) 650 mg PO Q4H PRN PRN Reason: FEVER/PAIN [place] Citrate ([place] Liq*) 480 mg PO TID [facility] Last Admin: 05/07/16 08:04 Dose: 600 mg : dose reduced by 20% at discharge due to elevated lithium level of 1.22. Olanzapine (Zyprexa *Odt*) 20 mg PO BEDTIME [facility] Last Admin: 05/06/16 20:47 Dose: 20 mg : replaced with non-ODT form at discharge. Propylthiouracil (Ptu Tab*) 200 mg PO TID [facility] Last Admin: 05/07/16 08:03 Dose: 200 mg 30 day supply of all meds but Tylenol submitted to [facility]. Discharge Planning: Prescriptions provided for discharge [x] Yes [] No Follow up care details as per social work arrangements. Patient response to discharge plan: [x] eager for discharge [x] agreeable with discharge plan [] ambivalent about discharge [] disagrees with discharge today
--- NOTE | 2016-05-07 13:13 | PN ---
[facility]: Group Therapy Note - Service Type Service Type: 35905 Group Psychotherapy - Cognitive Behavioral Group Therapy ( CBT):Patient was attentive and participatory in CBT programming this morning, and remained in good behavioral control. Patient expressed positive insights regarding relevant treatment interventions and goals.
== END 2016-05-07 13:25 | disposition home or self-care (01) | DRG 645 ==
LOC: BSU 19:47
PROVIDERS: ADMIT Psychiatry & Neurology Psychiatry; ATTEND Psychiatry & Neurology Psychiatry
DX: E05.01 Thyrotoxicosis with diffuse goiter with thyrotoxic crisis or storm (principal); F06.33 Mood disorder due to known physiological condition with manic features; F43.10 Post-traumatic stress disorder, unspecified; H53.9 Unspecified visual disturbance; J45.909 Unspecified asthma, uncomplicated; R10.11 Right upper quadrant pain; L50.0 Allergic urticaria; T43.595A Adverse effect of other antipsychotics and neuroleptics, initial encounter; Y92.239 Unspecified place in hospital as the place of occurrence of the external cause; R19.7 Diarrhea, unspecified; J11.1 Influenza due to unidentified influenza virus with other respiratory manifestations; R11.10 Vomiting, unspecified; Z88.8 Allergy status to other drugs, medicaments and biological substances
CPT/HCPCS: 36415; 71020; 76705; 80048; 80053; 80061; 80076; 80178; 81003; 81015; 83036; 84075; 84080; 84145; 84436; 84439; 84443; 84479; 84481; 84702; 85025; 85610; 85652; 86140; 87077; 87086; 87186; 87502; 90853; 99222; 99231; 99232; 99238; A9270-GY